=== PATIENT | male | born 1955 | race Caucasian/White ===

== ENCOUNTER 2024-07-03 10:00 | Inpatient (IN) ==
[2024-07-03] MEDS: ASPIRIN CHEW 324 MG PO STA (10:47)
--- NOTE | 2024-07-03 10:51 | Emergency Department Note ---
Impression & Plan Chest pain, exertional, Heart murmur, Elevated troponin I level ED Provider Note NAME: DONALD LANGSTON AGE: 69 SEX: M : 1955 ARRIVES VIA: Walk-In INFORMANT: Patient, ED PROVIDER(S): Ashish Olson DO CHIEF COMPLAINT: Chest pain HPI: The patient is a 69-year-old male who presented to the emergency department with his significant other for an evaluation of chest pain. The patient describes a tightness in his chest anteriorly. He also notices radiation of the pain to his right shoulder. He denies having any vomiting. He has had some shortness of breath. Pain is worsened with exertion and relieved with rest. The patient has not been seen by his family doctor for the symptoms. He has not had a stress test but he has a strong family history for early coronary artery disease. ROS: See above HPI for pertinent positives & negatives. A total of 10 systems reviewed and were otherwise negative. PAST MEDICAL HISTORY: See Below PAST SURGICAL HISTORY: See Below FAMILY HISTORY: See Below SOCIAL HISTORY: See Below HOME MEDICATIONS: See Below ALLERGIES: See Below VITALS: See Below PHYSICAL EXAMINATION: GENERAL: Patient is awake alert in no acute distress patient is resting comfortably and showing no signs of anxiety EYES: The conjunctivae are clear. The pupils are round and reactive. EARS, NOSE, MOUTH AND THROAT: The nose is without any evidence of any deformity. Mucous membranes are moist. Tongue is midline. NECK: The neck is nontender and supple. RESPIRATORY: Normal respiratory effort is noted there is no evidence of wheezing rhonchi or rales CARDIOVASCULAR: Regular rate and rhythm was noted to auscultation. Systolic murmur was suggested. GASTROINTESTINAL: The abdomen is soft. Abdomen is nontender. MUSCULOSKELETAL/EXTREMITIES: There is no evidence of gross deformity full range of motion is noted in the hips and shoulders. SKIN: There is no obvious evidence of any rash. Trace pedal edema was noted bilaterally. NEUROLOGIC: Patient is awake alert and oriented x3 MEDICAL DECISION MAKING: The patient is a 69-year-old male who presented to the emergency department for an evaluation of chest pain. The patient has a history of obesity but he also has a history of diabetes as well as hypertension. The patient's chest pain was exertional in nature. EKG showed no obvious ischemic changes but cardiac biomarker was elevated. Given the patient's risk factors as well as his exertional chest pain and his elevated troponin I do for the patient would be a better candidate for inpatient management. I discussed the patient's laboratory and radiographic studies with him. He was treated with aspirin in the emergency department. I discussed his condition with the on-call [facility] hospitalist. They have agreed to evaluate the patient in the emergency department for further management and disposition. Triage Nursing notes reviewed. Prior medical records reviewed Vital Signs: reviewed and remarkable for elevated blood pressure. Differential diagnosis: Cardiac ischemia, aortic dissection, pulmonary embolism, pneumothorax, pneumonia, pericarditis, myocarditis, esophageal rupture, GERD, cholecystitis, pancreatitis, musculoskeletal, as well as other pathologies. ER treatment provided: See below Diagnostics interpreted by me: ECG: EKG was obtained in the emergency department. My interpretation is normal sinus rhythm at 60 bpm. There is no ectopy. Nonspecific ST segment flattening was noted. No previous tracing was available. Cardiac Monitoring: An order was placed for continuous cardiac monitoring. The monitor shows a rate of 58 bpm with sinus bradycardia. Laboratory studies: As stated above and show below. Imaging studies: See below. Radiographic imaging was reviewed by myself Consultation(s): I discussed this case with Dr. Mccall who is on-call for the [facility] hospitalist group. Past Med/Surg History Problem List (Updated 07/03/24 @ 12:56 by Ashish Olson DO) Elevated troponin I level (Acute) Fatigue Chest pain, rule out acute myocardial infarction Heart murmur (Acute) Chest pain, exertional (Acute) Medical History (Updated 07/03/24 @ 12:56 by Ashish Olson DO) BPH (benign prostatic hyperplasia) Hypertension Diabetes Social History Smoking Status: Former smoker Preferred Language: Latvian Feels Safe at Home: Yes Allergies Allergies Allergy/AdvReac Type Severity Reaction Status Date / Time Penicillins Allergy Unknown Unknown Unverified 07/03/24 11:16 Sulfa (Sulfonamide Allergy Unknown Unknown Unverified 07/03/24 11:16 Antibiotics) [id number]-LTP-CgT Reductase AdvReac Verified 07/03/24 12:40 Inhibitor Home Meds Home Medications Medication Instructions Recorded Confirmed atenolol 100 mg tablet 100 mg PO QAM 07/03/24 07/03/24 clotrimazole-betamethasone 1 1 applic topical BID 07/03/24 07/03/24 %-0.05 % topical cream furosemide 20 mg tablet 20 mg PO QAM 07/03/24 07/03/24 hydrochlorothiazide 25 mg tablet 25 mg PO QAM 07/03/24 07/03/24 irbesartan 150 mg tablet 150 mg PO QAM 07/03/24 07/03/24 pioglitazone 45 mg tablet 45 mg PO QAM 07/03/24 07/03/24 tamsulosin 0.4 mg capsule 0.4 mg PO QAM 07/03/24 07/03/24 Results & Data (ED) Vital Signs Vital Signs - 24 hr 07/03/24 10:06 07/03/24 10:27 07/03/24 10:46 Temperature 36 C L Temperature Source Temporal Artery Scan Pulse Rate 63 59 L Pulse Rate [Apical] Respiratory Rate 18 Respiratory Effort / Characteristics Non-Labored Spontaneous Respiratory Depth Normal Respiratory Pattern Regular Blood Pressure 137/57 L Blood Pressure [Right Arm] Blood Pressure Mean 83 Blood Pressure Mean [Right Arm] Pulse Oximetry 96 98 Oxygen Delivery Method Room Air Room Air Sepsis Recent Fever Within 48 Hours No Sepsis New/Unexplained Change in Mental Status No Sepsis Action Taken by Nursing No Action Required 07/03/24 10:46 07/03/24 12:05 Temperature Temperature Source Pulse Rate Pulse Rate [Apical] 58 L Respiratory Rate 24 Respiratory Effort / Characteristics Respiratory Depth Respiratory Pattern Blood Pressure Blood Pressure [Right Arm] 166/77 H Blood Pressure Mean Blood Pressure Mean [Right Arm] 106 Pulse Oximetry 98 97 Oxygen Delivery Method Room Air Room Air Sepsis Recent Fever Within 48 Hours Sepsis New/Unexplained Change in Mental Status Sepsis Action Taken by [facility] Medications Current Medication List: was personally reviewed by me Laboratory Data Attestation: I reviewed the patient's lab results. 07/03/24 10:17 07/03/24 10:17 Lab Results 07/03/24 Range/Units 10:17 WBC 6.82 (4.8-10.8) K/ul RBC 4.47 L (4.70-6.10) M/uL Hgb 13.2 L (14.0-18.0) g/dl Hct 40.1 L (42.0-52.0) % MCV 89.7 (80.0-100.0) fL MCH 29.5 (25.0-34.0) pg MCHC 32.9 (32.0-36.0) g/dL RDW Std Deviation 46.2 (36.4-46.3) fL RDW Coeff of Malik 14.0 (11.5-14.5) % Plt Count 316 (130-400) K/uL MPV 8.7 L (9.4-12.4) fL Immature Gran % (Auto) 0.4 % Neut % (Auto) 61.3 % Lymph % (Auto) 30.2 % [place] % (Auto) 6.0 % Eos % (Auto) 1.5 % Baso % (Auto) 0.6 % Neut # (Auto) 4.18 (1.40-6.50) K/uL Lymph # (Auto) 2.06 (1.20-3.40) K/uL [place] # (Auto) 0.41 (0.11-0.59) K/uL Eos # (Auto) 0.10 (0.00-0.50) K/uL Baso # (Auto) 0.04 (0.00-0.20) K/uL Immature Gran # (Auto) 0.03 (0.01-0.20) K/uL Sodium 138 (136-145) mmol/L Potassium 4.3 (3.5-5.1) mmol/L Chloride 101 (98-107) mmol/L Carbon Dioxide 31 (21-32) mmol/L Anion Gap 6 (3-11) BUN 33 H (6-23) mg/dl Creatinine 1.22 (0.6-1.4) mg/dl Est Cr Clr Drug Dosing 91.5 ml/min eGFR 64.98 BUN/Creatinine Ratio 27.0 H (10-20) Glucose 160 H (70-99(Fasting)) mg/dl Calcium 9.3 (8.6-10.3) mg/dl Total Bilirubin 0.7 (0.2-1.0) mg/dl AST 13 (13-39) U/L ALT 10 (7-52) U/L Alkaline Phosphatase 52 (34-104) U/L Troponin I High Sens 34.3 H (0-20) pg/ml Total Protein 7.2 (6.0-8.3) gm/dl Albumin 3.9 (3.4-5.0) gm/dl Globulin 3.3 (2.5-4.0) gm/dl Albumin/Globulin Ratio 1.2 (0.9-2) Lipase 40 (11-82) U/L Administered Medications Discontinued Medications Aspirin (Aspirin Chew 324 Mg) 324 mg PO NOW STA Stop: 07/03/24 10:29 Last Admin: 07/03/24 10:47 Dose: 324 mg Documented By: MICHELLE Imaging Data Attestation: I personally reviewed and interpreted this imaging study as follows: My Impression: 1 view chest x-ray was obtained in the emergency department. My interpretation is no free air or definite infiltrate, final report below. Radiologist's Impression: Chest X-Ray 07/03/24 10:28 XR chest 1V portable HISTORY: 69 years-old Male Chest pain, nonspecific COMPARISON: None TECHNIQUE: AP view of the chest FINDINGS: Cardiac silhouette is enlarged. No pneumothorax, pleural effusion, airspace consolidation or overt pulmonary edema. Bones appear grossly intact. IMPRESSION: No acute process. ACT 112: Negative or not required by law. The above report was generated using voice recognition software. It may contain grammatical, syntax or spelling errors. Electronically signed by: Jose Elias Wu M.D. 07/03/2024 11:41 AM Discharge Plan Visit Data Chief Complaint: Chest Pain Stated Complaint: CHEST PAIN ED Provider: Ashish Olson Discharge Problem: Chest pain, exertional, Heart murmur, Elevated troponin I level Patient Disposition: Being Evaluated by Hospitalist Forms Stand Alone Forms: My [facility] Prescriptions Prescriptions: No Action atenolol 100 mg tablet 100 mg PO QAM pioglitazone 45 mg tablet 45 mg PO QAM tamsulosin 0.4 mg capsule 0.4 mg PO QAM clotrimazole-betamethasone 1-0.05 % cream 1 applic TOPICAL BID hydrochlorothiazide 25 mg tablet 25 mg PO QAM furosemide 20 mg tablet 20 mg PO QAM irbesartan 150 mg tablet 150 mg PO QAM Referrals Referrals: Zach Pollock MD [Primary Care Provider] -
[2024-07-03 11:02] LABS: Basophils # (auto) 0.04 K/uL (0.00-0.20); Basophils % (auto) 0.6 %; Eosinophils % (auto) 1.5 %; Hematocrit (blood only) 40.1 % (42.0-52.0); Hemoglobin 13.2 g/dl (14.0-18.0); Immature Granulocytes # (auto) 0.03 K/uL (0.01-0.20); Immature Granulocytes % (auto) 0.4 %; Lymphocytes # (auto) 2.06 K/uL (1.20-3.40); Lymphocytes % (auto) 30.2 %; Mean Corpuscular Hemoglobin 29.5 pg (25.0-34.0); Mean Corpuscular Hgb Conc 32.9 g/dL (32.0-36.0); Mean Corpuscular Volume 89.7 fL (80.0-100.0); Mean Platelet Volume 8.7 fL (9.4-12.4); Monocytes # (auto) 0.41 K/uL (0.11-0.59); Neutrophils # (auto) 4.18 K/uL (1.40-6.50); Neutrophils % (auto) 61.3 %; Platelet Count 316 K/uL (130-400); RDW Standard Deviation 46.2 fL (36.4-46.3); Red Blood Count 4.47 M/uL (4.70-6.10); White Blood Count 6.82 K/ul (4.8-10.8)
[2024-07-03 11:16] LABS: Albumin Globulin Ratio 1.2 (0.9-2); Albumin Level 3.9 gm/dl (3.4-5.0); Bilirubin,Total 0.7 mg/dl (0.2-1.0); Calcium 9.3 mg/dl (8.6-10.3); Creatinine Clr Calc Pharmacy 91.5 ml/min; Globulin 3.3 gm/dl (2.5-4.0); Potassium 4.3 mmol/L (3.5-5.1); Total Protein 7.2 gm/dl (6.0-8.3)
[2024-07-03 11:21] LABS: Troponin I High Sensitivity 34.3 pg/ml (0-20)
--- NOTE | 2024-07-03 11:42 | XRay Report ---
XR chest 1V portable HISTORY: 69 years-old Male Chest pain, nonspecific COMPARISON: None TECHNIQUE: AP view of the chest FINDINGS: Cardiac silhouette is enlarged. No pneumothorax, pleural effusion, airspace consolidation or overt pu lmonary edema. Bones appear grossly intact. IMPRESSION: No acute process. ACT 112: Negative or not required by law. The above report was generated using voice recognition software. It may contain grammatical, syntax o r spelling errors. Electronically signed by: Jose Elias Wu M.D. 07/03/2024 11:41 AM
--- NOTE | 2024-07-03 12:03 | History & Physical Report ---
Date of Service July 03, 2024 Assessment & Plan (1) Chest pain, rule out acute myocardial infarction: Plan: Serial troponins (if significantly up trending will add IV heparin), TTE ASA 324mg PO given in ER, continue 81mg PO daily Intolerant to statins (tried both lipid and water soluble) -> lipid panel with AM labs, consider Repatha as outpatient HbA1C with AM labs Exertional with high risk factors and family history, will consult cardiology to consider taking to cardiac laborer wrecking and salvaging vs stress testing (2) Heart murmur: Plan: TTE (3) Fatigue: Plan: Consider sleep apnea testing as outpatient TSH with prior labs (4) Hypertension: Plan: Continue atenolol, furosemide, HCTZ, irbesartan Consider switching atenolol for carvedilol is CAD confirmed (5) Diabetes: Plan: HbA1C with AM labs Hold pioglitazone Consider GLP-1 on discharge SGLT-2 inhibitor not a good option given recurrent UTIs (6) BPH (benign prostatic hyperplasia): Plan: Continue tamsulosin Plan VTE Prophylaxis - deferred pending serial troponins Diet - heart healthy, T2DM, Low Na Disposition - observation to PCU Admission and Anticipated Discharge Date Admission Date: July 03, 2024 History of Present Illness Chief Complaint: Chest pain Primary Care Provider: Zach Pollock MD Georges Pollock is a 69 year old male who presents to the ER with chest pain. He reports 2 weeks of exertional burning sensation over his chest. He has been taking tums which has helped a stomach sensation but not this exertion pain. It has been coming on more frequently and with increased duration. Yesterday he reports it lasted for a couple of hours but was only intense on exertion during that time. Possible worse on eating. No radiation or acid taste in his mouth. Associated shortness of breath, no diaphoresis or nausea. No palpitations, claudication, presyncope or syncope. No orthopnea or paroxysmal nocturnal dyspnea although he also does not sleep flat due to chronic back problems. Prior to this he has noticed lack of energy over the last 1.5 years. Leg swelling is chronic but was worse 6 months ago and improved with the addition of furosemide. He has noticed some left shoulder pain but this is not associated with the burning chest pain. He has been treated for bursitis and when cold it exacerbates this pain. It is worse on movement (shoulder extension). He recently had a sore throat and stiff neck on the left side 2 days ago but that has now resolved. He has not previously seen a picture hanger but has an appointment to see Dr Nicholas in the Spring due to extensive risk factors for coronary artery disease. He has hypertension on 4 medications, diabetes on pioglitazone (last HbA1C 7.2 by report), untreated hyperlipemia (intolerant to statins with leg pain), family history with heart attacks with his brother, mother, father and uncles (all over the age of 5050 years old), obesity (BMI 52). He quit smoking in 1989 (15 pack- year history). No personal history of cardiovascular disease. While in the ER he denies any current chest burning sensation. Allergies Allergy/AdvReac Type Severity Reaction Status Date / Time Penicillins Allergy Unknown Unknown Unverified 07/03/24 11:16 Sulfa (Sulfonamide Allergy Unknown Unknown Unverified 07/03/24 11:16 Antibiotics) [id number]-YaK Reductase AdvReac Verified 07/03/24 12:40 Inhibitor Home Medications Medication Instructions Recorded Confirmed Type atenolol 100 mg tablet 100 mg PO QAM 07/03/24 07/03/24 History clotrimazole-betamethasone 1 1 applic topical BID 07/03/24 07/03/24 History %-0.05 % topical cream furosemide 20 mg tablet 20 mg PO QAM 07/03/24 07/03/24 History hydrochlorothiazide 25 mg tablet 25 mg PO QAM 07/03/24 07/03/24 History irbesartan 150 mg tablet 150 mg PO QAM 07/03/24 07/03/24 History pioglitazone 45 mg tablet 45 mg PO QAM 07/03/24 07/03/24 History tamsulosin 0.4 mg capsule 0.4 mg PO QAM 07/03/24 07/03/24 History Past Med/Surg History Problem List (Updated 07/03/24 @ 16:05 by rBannon Altman MD, PhD) Benign essential hypertension Atherogenic dyslipidemia Elevated troponin I level (Acute) Fatigue Chest pain, rule out acute myocardial infarction Heart murmur (Acute) Chest pain, exertional (Acute) Medical History BPH (benign prostatic hyperplasia) Hypertension Diabetes Social History Smoking Status: Former smoker Smoking End Date: 1989; Second Hand Exposure: No; Do You Dip or Chew Tobacco: No; Tobacco Cessation Education Requested by Patient: No Hx Alcohol Use: Yes Alcohol type: beer Hx Substance Use: No Preferred Language: Syriac Communication Ability: Effective Radiology Director Required: No Beliefs That Will Affect Care: None Current Living Situation: Spouse Other Information That Helps Us Care for You: No Feels Safe at Home: Yes Safety Concerns: Feels Safe At This Time Assistive Devices: Denture - Upper and Glasses Review of Systems Review of Systems: All systems reviewed & are unremarkable except as noted in HPI & below Physical Exam Constitutional: WD/WN, vitals as above + morbidly obese Eyes: + anicteric sclerae; normal pupil size Respiratory: normal respiratory effort, lungs clear to auscultation Cardiovascular: Rate/Rhythm: regular rate and regular rhythm Heart Sounds: + murmur (OMAIRA LUSB 2/6) Extremities: + pedal edema (2+ b/l equal to knees) Gastrointestinal (Abdomen): normal bowel sounds, soft, nontender, no hepatosplenomegaly Musculoskeletal: no cyanosis or clubbing, extremities motor strength 5/5 Skin: no rashes, warm and dry Neurologic: moves all extremities and awake; not confused Psychiatric: A+Ox3, euthymic affect Results & Data Results & Data Vital Signs (Past 12 Hours) Vital Signs Temp Pulse Resp BP Pulse Ox O2 Del Method 07/03/24 10:46 98 Room Air 07/03/24 10:46 98 Room Air 07/03/24 10:27 59 L 07/03/24 10:06 36 C L 63 18 137/57 L 96 Room Air Laboratory Results Abnormal lab results 07/03/24 Range/Units 10:17 RBC 4.47 L (4.70-6.10) M/uL Hgb 13.2 L (14.0-18.0) g/dl Hct 40.1 L (42.0-52.0) % MPV 8.7 L (9.4-12.4) fL BUN 33 H (6-23) mg/dl BUN/Creatinine Ratio 27.0 H (10-20) Glucose 160 H (70-99(Fasting)) mg/dl Troponin I High Sens 34.3 H (0-20) pg/ml Diagnostic Findings XR chest 1V portable HISTORY: 69 years-old Male Chest pain, nonspecific COMPARISON: None TECHNIQUE: AP view of the chest FINDINGS: Cardiac silhouette is enlarged. No pneumothorax, pleural effusion, airspace consolidation or overt pulmonary edema. Bones appear grossly intact. IMPRESSION: No acute process. Medications Administered ER Medications Given: Aspirin 324mg PO ECG Rate (beats per minute): 60 Rhythm: normal sinus Findings: no acute ischemic change Comparison ECG Date: no prior available Code Status & VTE Plan Code Status Full VTE Prophylaxis Plan VTE Prophylaxis will be ordered: No PG Care Time/CCT Total # of Minutes Spent Total Time Spent with Patient: Total time spent is greater than 50% in coordination of care (as documented) at patient's floor/unit and/or counseling patient: Coding Level of Care Code 22694 INT INP/OBS CARE 3/75MIN Diagnoses Chest pain, rule out acute myocardial infarction R07.9 Heart murmur R01.1 Fatigue R53.83 Hypertension I10 Diabetes E11.9 BPH (benign prostatic hyperplasia) N40.0
[2024-07-03] MEDS ORDERED: ACETAMINOPHEN 325 MG TAB PO PRN (13:39)
[2024-07-03] MEDS ORDERED: GLUCOSE 10 TAB/TUBE PO PRN (13:39)
[2024-07-03] MEDS ORDERED: GLUCAGON FOR INJ 1 MG VIAL SQ PRN (13:39)
[2024-07-03] MEDS ORDERED: CARBOHYDRATES FOR HYPOGLYCEMIA PO PRN (13:39)
[2024-07-03] MEDS ORDERED: GLUCOSE 40% GEL 15 GM TUBE PO PRN (13:39)
[2024-07-03] MEDS ORDERED: DEXTROSE 50% 50 ML SYRINGE IV PRN (13:39)
[2024-07-03 13:51] LABS: Magnesium 1.6 mg/dl (1.7-2.4)
[2024-07-03 14:00] LABS: Troponin I High Sensitivity 84.6 pg/ml (0-20)
[2024-07-03 14:04] LABS: Thyroid Stimulating Hormone 1.179 uIu/ml (0.300-4.500)
[2024-07-03 14:07] LABS: INR 1.1 (0.9-1.1); Partial Thromboplastin Time 27 Seconds (21-31); Prothrombin Time 11.4 Seconds (9.0-12.0)
[2024-07-03 14:36] LABS: Appearance Urine Clear (Clear); Bilirubin Urine Negative (Negative); Blood Urine Negative (Negative); Color Urine Yellow; Glucose Urine UA Negative (Negative); Ketones Urine Negative (Negative); Leukocyte Esterase Urine Negative (Negative); Nitrite Urine Negative (Negative); Protein Urine Negative (Negative); Specific Gravity Urine 1.011 (1.000-1.030); Urobilinogen Urine Negative (Negative)
[2024-07-03] MEDS: Heparin IV Adult Wt-Based Low-Dose w/ INITIAL Bolus Protocol IV STA (15:55)
--- NOTE | 2024-07-03 15:55 | Cardiology Consultation ---
Date of Consultation July 03, 2024 Assessment & Plan (1) Elevated troponin I level: Mild non-ST elevation [place]. Not sure where his troponins will go from here. May continue to rise or may be limited. He does have risk factors for coronary disease. I am awaiting the echocardiogram. This may be an acute coronary syndrome or it may represent demand ischemia with underlying coronary disease. His blood pressure is elevated which could also cause elevated troponin. I do not see a contraindication for him to undergo definitive evaluation by coronary angiography. Therefore, tentatively planning to take him to the [facility] tomorrow for cardiac cath plus or minus PCI as indicated. Agree with aspirin and he should continue on heparin drip. We will not start Plavix or Brilinta as he is diabetic and coronary artery bypass grafting may be indicated (2) Fatigue: This is been ongoing for a few years. Agree with outpatient sleep study to evaluate for obstructive sleep apnea given his clear risk. I am awaiting the echocardiogram which may also give us information with regard to his LVEF. Further recommendations pending results. (3) Heart murmur: Awaiting echo. (4) Atherogenic dyslipidemia: Patient is considered high risk (diabetes plus or minus CAD). High intensity statin therapy is recommended. However, he is intolerant to at least 3 previously attempted statins. He would benefit from PCSK9 inhibition. We would likely have to alter his current diabetic regimen. (5) Benign essential hypertension: Blood pressure is inadequately controlled at this time. I suspect he did not take his medications today. His first scheduled medications are for tomorrow morning. At the very least I will have him receive IV hydralazine as needed for systolic blood pressure greater than 150 mmHg. I agree with atenolol 100 mg daily, HCTZ 25 mg daily, and the substitution of losartan for the irbesartan. The should be taken tomorrow before his cath. History of Present Illness Reason for Consultation: Chest pain, elevated troponin Attending Physician: Zev Mccall MD History of Present Illness 69-year-old morbidly obese diabetic male presented with burning substernal chest discomfort. His EKG was unremarkable. His initial cardiac troponin was minimally elevated but his second cardiac troponin was elevated to 84.6. I was asked to see him for ACS. Patient reports that he has had reproducible burning chest discomfort on exertion which typically resolves with rest. He has a strong family history of cardiac disease including his grandfather, father and brother who each had coronary artery disease. In fact, he had recently requested cardiology referral as an outpatient because he is worried about his own cardiac risk. He tells me he smoked for about 15 years when he was younger up to a pack a day but discontinued in 1989. He tells me he has been a diabetic for a long time and his sugars have recently been fairly well-controlled. Hemoglobin A1c 7.2. He is also had high blood pressure for a long time. When he initially presented his systolic blood pressure was 137 mmHg but it has continued to increase during his hospitalization. Most recent systolic blood pressure recorded at 171 mmHg. Patient has never had any cardiac problems in the past. He has never had a cath, stents, or bypass. He tells me that his chest discomfort episode yesterday became quite intense and lasted for several hours before eventually resolving. He also has some right shoulder pain but he believes this is an orthopedic issue. He denies syncope but does have significant dyspnea on exertion longstanding. He denies orthopnea, PND, racing heartbeat, palpitations, and admits to only mild edema worse at the end of the day. Was previously more significant but improved with the use of Lasix. Denies any recent fevers or chills, nausea, vomiting, diarrhea, hematemesis or hematochezia. He voices no other complaints or concerns at this time. Allergies Allergy/AdvReac Type Severity Reaction Status Date / Time Penicillins Allergy Unknown Unknown Unverified 07/03/24 11:16 Sulfa (Sulfonamide Allergy Unknown Unknown Unverified 07/03/24 11:16 Antibiotics) [id number]-GDN-[id number] Reductase AdvReac Verified 07/03/24 12:40 Inhibitor Home Medications Medication Instructions Recorded Confirmed Type atenolol 100 mg tablet 100 mg PO QAM 07/03/24 07/03/24 History clotrimazole-betamethasone 1 1 applic topical BID 07/03/24 07/03/24 History %-0.05 % topical cream furosemide 20 mg tablet 20 mg PO QAM 07/03/24 07/03/24 History hydrochlorothiazide 25 mg tablet 25 mg PO QAM 07/03/24 07/03/24 History irbesartan 150 mg tablet 150 mg PO QAM 07/03/24 07/03/24 History pioglitazone 45 mg tablet 45 mg PO QAM 07/03/24 07/03/24 History tamsulosin 0.4 mg capsule 0.4 mg PO QAM 07/03/24 07/03/24 History Patient History Medical History BPH (benign prostatic hyperplasia) Hypertension Diabetes Social History Smoking Status: Former smoker Preferred Language: Romanian Feels Safe at Home: Yes Review of Systems Review of Systems: Negative except as per HPI Physical Exam Constitutional: WD/WN, vitals as above (Morbidly obese) Eyes: Extraocular muscles intact, sclera are anicteric ENMT: Oral mucosa is pink, moist, and intact Neck: Thick. No JVD appreciated Respiratory: Clear to auscultation bilaterally. No wheezing, rhonchi, or rales Cardiovascular: Regular rate and rhythm. S4 gallop. Systolic murmur. Trace bilateral lower extremity edema left slightly worse than right. Neurologic: Cognition is intact. Speech is fluent. No focal deficits. Psychiatric: A+Ox3, euthymic affect (Anxious) Results & Data Vital Signs (Past 12 Hours) Vital Signs Temp Pulse Pulse Resp BP BP Pulse Ox 07/03/24 13:26 55 L 25 H 171/59 H 98 07/03/24 12:05 58 L 24 166/77 H 97 07/03/24 10:46 98 07/03/24 10:46 98 07/03/24 10:27 59 L 07/03/24 10:06 36 C L 63 18 137/57 L 96 O2 Del Method 07/03/24 13:26 Room Air 07/03/24 12:05 Room Air 07/03/24 10:46 Room Air 07/03/24 10:46 Room Air 07/03/24 10:27 07/03/24 10:06 Room Air PG Care Time/CCT Total # of Minutes Spent Total Time Spent with Patient: Total time spent is greater than 50% in coordination of care (as documented) at patient's floor/unit and/or counseling patient: Coding Level of Care Code 81324 INT INP/OBS CARE 2/55MIN Diagnoses Elevated troponin I level R79.89 Fatigue R53.83 Heart murmur R01.1 Atherogenic dyslipidemia E78.5 Benign essential hypertension I10 Time Spent (min) 50
[2024-07-03] MEDS: HEPARIN SOD (PORCINE) 1000 UNIT/ML IV ONE (15:56)
[2024-07-03] MEDS: HEPARIN SODIUM/DEXTROSE 25,000 UNITS/500 ML BAG IV SCH (15:56)
[2024-07-03] MEDS: MAGNESIUM SULFATE / D5W 1 GM/100 ML BAG IV SCH (15:56)
[2024-07-03] MEDS ORDERED: hydrALAZINE HCL 20 MG/ML VIAL IV PRN (16:15)
--- NOTE | 2024-07-03 16:17 | Electrocardiogram Report ---
Test Reason : Blood Pressure : */* mmHG Vent. Rate : 60 BPM Atrial Rate : 60 BPM P-R Int : 186 ms QRS Dur : 92 ms QT Int : 394 ms P-R-T Axes : 2 32 27 degrees QTcB Int : 394 ms Normal sinus rhythm Normal ECG No previous ECGs available Confirmed by Mirza Gutierrez ([id number]) on 07/03/2024 4:16:53 PM Referred By: REFERRED SELF Confirmed By: Mirza Gutierrez
--- NOTE | 2024-07-03 16:36 | XCELERA ---
[id number] \\[id number]
[2024-07-03 17:14] LABS: D Dimer 760 ug/L FEU (0-500)
[2024-07-03] MEDS: INSULIN ASPART PER UNIT CHARGE SC SCH (17:28)
[2024-07-03] MEDS: hydrALAZINE HCL 20 MG/ML VIAL IV STA (17:47)
[2024-07-03] MEDS ORDERED: OXYMETAZOLINE 0.05% 30 ML BTL PRN (19:40)
[2024-07-03] MEDS ORDERED: CLOTRIMAZOLE/BETAMETHASONE CR 15 GM TUBE EXT SCH (21:00)
[2024-07-03 23:16] LABS: ANTI-Xa, UFH(UnfractionatedHep 0.33 IU/ml (0.3-0.7)
--- NOTE | 2024-07-04 05:22 | Ultrasound Report ---
EXAM: US venous doppler LE BI CLINICAL HISTORY: HISTORY: No previous. leg swelling, elevated d-dimer. TECH NOTES FOR RADIOLOGIST: No obvious DVT B/L LE. Exam limited by increased body habitus, BMI 52, and edema in bilat calves. TECHNIQUE: Bilateral lower extremity venous Doppler with reflux is performed. One or more of the following were performed- spectral analysis, resistive index, waveform analysis, and pulsed Doppler. COMPARISON: None. FINDINGS: Exam limited by increased body habitus. The examined deep venous system veins include the common femoral vein, femoral vein, popliteal vein, peroneal vein, anterior tibialis vein, and posterior tibialis vein. The examined superficial venous system includes the proximal great saphenous vein at the SFJ. All evaluated veins compress fully with applied transducer pressure. Additional Findings: Bilateral calves subcutaneous edema is noted. IMPRESSION: 1. Exam limited by increased body habitus. 2. No evidence of superficial and deep venous thrombosis 3. Bilateral calves subcutaneous edema is noted. DISCLAIMER:DVT could be missed early in the disease when clot burden is minimal. For patients with moderate and high pretest probability of DVT and negative ultrasound, the [employer] clinical guidelines recommend testing with a D-dimer assay or repeat ultrasound in 5-7 days. If symptoms worsen, the Society of radiologists in ultrasound recommends repeating ultrasound even earlier. Electronically signed by Tyler Briceno 07-04-2024 05:22 AM
[2024-07-04 07:08] LABS: Basophils # (auto) 0.04 K/uL (0.00-0.20); Basophils % (auto) 0.6 %; Eosinophils # (auto) 0.08 K/uL (0.00-0.50); Eosinophils % (auto) 1.2 %; Hematocrit (blood only) 38.9 % (42.0-52.0); Immature Granulocytes # (auto) 0.02 K/uL (0.01-0.20); Immature Granulocytes % (auto) 0.3 %; Lymphocytes # (auto) 1.76 K/uL (1.20-3.40); Lymphocytes % (auto) 27.3 %; Mean Corpuscular Hemoglobin 29.7 pg (25.0-34.0); Mean Corpuscular Hgb Conc 33.4 g/dL (32.0-36.0); Mean Corpuscular Volume 88.8 fL (80.0-100.0); Mean Platelet Volume 8.5 fL (9.4-12.4); Monocytes # (auto) 0.42 K/uL (0.11-0.59); Monocytes % (auto) 6.5 %; Neutrophils # (auto) 4.12 K/uL (1.40-6.50); Neutrophils % (auto) 64.1 %; Platelet Count 284 K/uL (130-400); RDW Coefficient of Variation 14.2 % (11.5-14.5); RDW Standard Deviation 45.9 fL (36.4-46.3); Red Blood Count 4.38 M/uL (4.70-6.10); White Blood Count 6.44 K/ul (4.8-10.8)
[2024-07-04 07:27] LABS: BUN Creatinine Ratio 27.5 (10-20); Calcium 9.3 mg/dl (8.6-10.3); Chol HDL Ratio 4.6 (0-5); Creatinine Clr Calc Pharmacy 92.7 ml/min
[2024-07-04 07:39] LABS: Estimated Average Glucose 151 mg/dl; Hemoglobin A1C 6.9 % (4.5-5.6)
[2024-07-04 07:42] LABS: ANTI-Xa, UFH(UnfractionatedHep 0.25 IU/ml (0.3-0.7)
[2024-07-04] MEDS ORDERED: PHARMACY GLYCEMIC MGMT CONSULT PRN (08:54)
[2024-07-04] MEDS ORDERED: ATENOLOL 50 MG TABLET PO SCH (09:00)
[2024-07-04] MEDS ORDERED: hydroCHLOROthiazide 25 MG TAB PO SCH (09:00)
[2024-07-04] MEDS ORDERED: FUROSEMIDE 20 MG TAB PO SCH (09:00)
[2024-07-04] MEDS: carvediloL 6.25 MG TAB PO ONE (10:33)
[2024-07-04] MEDS: BUMETANIDE 1 MG TAB PO SCH (10:33)
[2024-07-04] MEDS: ASPIRIN 81 MG ECTAB PO SCH (10:34)
[2024-07-04] MEDS: LOSARTAN POTASSIUM 50 MG TAB PO SCH (10:35)
[2024-07-04] MEDS: TAMSULOSIN HCL 0.4 MG CAP PO SCH (10:35)
--- NOTE | 2024-07-04 10:39 | Hospitalist Progress Note ---
Date of Service July 04, 2024 Assessment & Plan (1) NSTEMI (non-ST elevated myocardial infarction): (2) Hyperlipidemia: (3) Hypertension: (4) Type 2 diabetes mellitus: (5) Morbid obesity with BMI of 50.0-59.9, adult: (6) B12 deficiency: Plan 69-year-old male with past medical history of hypertension, morbid obesity, type 2 diabetes mellitus who presents to the ED with burning substernal chest discomfort #NSTEMI #Essential hypertension #Hyperlipidemia #Suspected ischemic cardiomyopathy, EF of 45% Patient was seen by cardiology He was scheduled to have cardiac cath this morning which has been postponed till tomorrow Continue heparin infusion per cardiology Continue aspirin Total cholesterol is 228 HDL is 50 LDL is 158 Patient is intolerant to statin, as per cardiology he would benefit from PCSK9 inhibition. 2D echo reviewed: Difficult study due to body habitus, shows moderate concentric LVH with EF of 45% Switch atenolol to carvedilol 12.5 mg p.o. twice daily with hold parameters Continue losartan 50 mg p.o. daily . Furosemide and hydrochlorothiazide and switch to Bumex 1 mg p.o. daily Hydralazine IV as needed for hypertension per cardiology I/O monitoring Daily weights Await cardiac cath with cardiology #Type 2 diabetes mellitus A1c 6.9 Pharmacy consult for glycemic control I do not believe pioglitazone is a good medicine of choice for this patient and he would benefit from endocrinology referral outpatient for diabetes management I believe this patient would also benefit from GLP-1 agonist or SGLT2 antagonist #Morbid obesity BMI is 52.1 Lifestyle counseling regarding diet, exercise and weight loss provided Outpatient follow with PCP and endocrinology #Hypomagnesemia Magnesium replacement Monitor levels #Elevated D-dimer D-dimer 716 Bilateral lower extremity Doppler showed no evidence of DVT Check CTA of the chest to assess for PE Patient is already on heparin infusion CODE STATUS: Full code DVT prophylaxis: Patient on heparin infusion Care plan discussed with patient, nursing staff and updated at bedside Admission and Anticipated Discharge Date Admission Date: July 03, 2024 Subjective Patient seen and examined H&P reviewed Labs reviewed Telemetry reviewed Radiology reviewed is at bedside Patient currently denies any chest pain, shortness of breath, nausea, vomiting, diarrhea, abdominal pain, dizziness, lightheadedness. Patient has been experiencing lack of energy for the past few months with decreased motivation to ambulate and has consequently gained weight. Physical Exam Physical Exam: General: No acute distress Psych: Awake and alert, oriented x 3 HEENT: Anicteric sclera, moist oral mucosa CVS: Regular rate and rhythm, systolic murmur audible Lungs: Bilateral air entry, no wheezing noted Abdomen: Soft, nontender, obese abdomen no rebound, no guarding Ext: 1+ pitting edema noted, no calf tenderness Neuro: No focal motor deficits noted Results & Data Results & Data Vital Signs (Past 12 Hours) Vital Signs Temp Pulse Pulse Resp BP BP Pulse Ox 07/04/24 07:53 36.8 C 58 L 18 155/82 H 96 07/04/24 07:37 36.3 C L 67 18 152/73 H 97 07/04/24 07:30 07/04/24 03:54 36.4 C L 60 16 131/71 96 07/03/24 23:45 07/03/24 23:44 52 L 07/03/24 22:46 36.6 C 58 L 16 128/71 98 O2 Del Method 07/04/24 07:53 Room Air 07/04/24 07:37 Room Air 07/04/24 07:30 Room Air 07/04/24 03:54 Room Air 07/03/24 23:45 Room Air 07/03/24 23:44 07/03/24 22:46 Room Air Laboratory Results Laboratory Results - last 24 hr 07/03/24 07/03/24 07/03/24 10:17 13:01 13:44 WBC 6.82 RBC 4.47 L Hgb 13.2 L Hct 40.1 L MCV 89.7 MCH 29.5 MCHC 32.9 RDW Std Deviation 46.2 RDW Coeff of Malik 14.0 Plt Count 316 MPV 8.7 L Immature Gran % (Auto) 0.4 Neut % (Auto) 61.3 Lymph % (Auto) 30.2 [place] % (Auto) 6.0 Eos % (Auto) 1.5 Baso % (Auto) 0.6 Neut # (Auto) 4.18 Lymph # (Auto) 2.06 [place] # (Auto) 0.41 Eos # (Auto) 0.10 Baso # (Auto) 0.04 Immature Gran # (Auto) 0.03 PT 11.4 INR 1.1 APTT 27 PTT Ratio 1.0 D-Dimer Heparin Anti-Xa, Unfract Sodium 138 Potassium 4.3 Chloride 101 Carbon Dioxide 31 Anion Gap 6 BUN 33 H Creatinine 1.22 Est Cr Clr Drug Dosing 91.5 eGFR 64.98 BUN/Creatinine Ratio 27.0 H Glucose 160 H POC Glucose 128 H Estimat Average Glucose Hemoglobin A1c Calcium 9.3 Magnesium 1.6 L Total Bilirubin 0.7 AST 13 ALT 10 Alkaline Phosphatase 52 Troponin I High Sens 34.3 H 84.6 H* D B-Natriuretic Peptide 111 H Total Protein 7.2 Albumin 3.9 Globulin 3.3 Albumin/Globulin Ratio 1.2 Triglycerides Cholesterol LDL Cholesterol, Calc VLDL Cholesterol, Calc HDL Cholesterol Cholesterol/HDL Ratio Lipase 40 Vitamin B12 TSH 1.179 Urine Color Urine Appearance Urine pH Ur Specific Mclaughlin Urine Protein Urine Glucose (UA) Urine Ketones Urine Blood Urine Nitrite Urine Bilirubin Urine Urobilinogen Ur Leukocyte Esterase Hepatitis C Antibody 07/03/24 07/03/24 07/03/24 14:12 16:21 17:05 WBC RBC Hgb Hct MCV MCH MCHC RDW Std Deviation RDW Coeff of Malik Plt Count MPV Immature Gran % (Auto) Neut % (Auto) Lymph % (Auto) [place] % (Auto) Eos % (Auto) Baso % (Auto) Neut # (Auto) Lymph # (Auto) [place] # (Auto) Eos # (Auto) Baso # (Auto) Immature Gran # (Auto) PT INR APTT PTT Ratio D-Dimer 760 H* Heparin Anti-Xa, Unfract Sodium Potassium Chloride Carbon Dioxide Anion Gap BUN Creatinine Est Cr Clr Drug Dosing eGFR BUN/Creatinine Ratio Glucose POC Glucose 136 H Estimat Average Glucose Hemoglobin A1c Calcium Magnesium Total Bilirubin AST ALT Alkaline Phosphatase Troponin I High Sens B-Natriuretic Peptide Total Protein Albumin Globulin Albumin/Globulin Ratio Triglycerides Cholesterol LDL Cholesterol, Calc VLDL Cholesterol, Calc HDL Cholesterol Cholesterol/HDL Ratio Lipase Vitamin B12 TSH Urine Color Yellow Urine Appearance Clear Urine pH 5.0 Ur Specific Mclaughlin 1.011 Urine Protein Negative Urine Glucose (UA) Negative Urine Ketones Negative Urine Blood Negative Urine Nitrite Negative Urine Bilirubin Negative Urine Urobilinogen Negative Ur Leukocyte Esterase Negative Hepatitis C Antibody 07/03/24 07/03/24 07/04/24 19:57 23:00 06:45 WBC 6.44 RBC 4.38 L Hgb 13.0 L Hct 38.9 L MCV 88.8 MCH 29.7 MCHC 33.4 RDW Std Deviation 45.9 RDW Coeff of Malik 14.2 Plt Count 284 MPV 8.5 L Immature Gran % (Auto) 0.3 Neut % (Auto) 64.1 Lymph % (Auto) 27.3 [place] % (Auto) 6.5 Eos % (Auto) 1.2 Baso % (Auto) 0.6 Neut # (Auto) 4.12 Lymph # (Auto) 1.76 [place] # (Auto) 0.42 Eos # (Auto) 0.08 Baso # (Auto) 0.04 Immature Gran # (Auto) 0.02 PT INR APTT PTT Ratio D-Dimer Heparin Anti-Xa, Unfract 0.33 0.25 L Sodium 137 Potassium 4.0 Chloride 101 Carbon Dioxide 28 Anion Gap 8 BUN 33 H Creatinine 1.20 Est Cr Clr Drug Dosing 92.7 eGFR 66.28 BUN/Creatinine Ratio 27.5 H Glucose 141 H POC Glucose 176 H Estimat Average Glucose 151 Hemoglobin A1c 6.9 H Calcium 9.3 Magnesium 2.0 Total Bilirubin AST ALT Alkaline Phosphatase Troponin I High Sens 457.3 H* D 289.1 H* D B-Natriuretic Peptide Total Protein Albumin Globulin Albumin/Globulin Ratio Triglycerides 98 Cholesterol 228 H LDL Cholesterol, Calc 158 VLDL Cholesterol, Calc 20 HDL Cholesterol 50 Cholesterol/HDL Ratio 4.6 Lipase Vitamin B12 151 L TSH Urine Color Urine Appearance Urine pH Ur Specific Mcl[place] Urine Protein Urine Glucose (UA) Urine Ketones Urine Blood Urine Nitrite Urine Bilirubin Urine Urobilinogen Ur Leukocyte Esterase Hepatitis C Antibody Pending 07/04/24 07:13 WBC RBC Hgb Hct MCV MCH MCHC RDW Std Deviation RDW Coeff of Malik Plt Count MPV Immature Gran % (Auto) Neut % (Auto) Lymph % (Auto) [place] % (Auto) Eos % (Auto) Baso % (Auto) Neut # (Auto) Lymph # (Auto) [place] # (Auto) Eos # (Auto) Baso # (Auto) Immature Gran # (Auto) PT INR APTT PTT Ratio D-Dimer Heparin Anti-Xa, Unfract Sodium Potassium Chloride Carbon Dioxide Anion Gap BUN Creatinine Est Cr Clr Drug Dosing eGFR BUN/Creatinine Ratio Glucose POC Glucose 136 H Estimat Average Glucose Hemoglobin A1c Calcium Magnesium Total Bilirubin AST ALT Alkaline Phosphatase Troponin I High Sens B-Natriuretic Peptide Total Protein Albumin Globulin Albumin/Globulin Ratio Triglycerides Cholesterol LDL Cholesterol, Calc VLDL Cholesterol, Calc HDL Cholesterol Cholesterol/HDL Ratio Lipase Vitamin B12 TSH Urine Color Urine Appearance Urine pH Ur Specific Mclaughlin Urine Protein Urine Glucose (UA) Urine Ketones Urine Blood Urine Nitrite Urine Bilirubin Urine Urobilinogen Ur Leukocyte Esterase Hepatitis C Antibody Diagnostic Findings Chest X-Ray 07/03/24 10:28 XR chest 1V portable HISTORY: 69 years-old Male Chest pain, nonspecific COMPARISON: None TECHNIQUE: AP view of the chest FINDINGS: Cardiac silhouette is enlarged. No pneumothorax, pleural effusion, airspace consolidation or overt pulmonary edema. Bones appear grossly intact. IMPRESSION: No acute process. ACT 112: Negative or not required by law. The above report was generated using voice recognition software. It may contain grammatical, syntax or spelling errors. Electronically signed by: Jose Elias Wu M.D. 07/03/2024 11:41 AM Venous Doppler Study 07/04/24 00:00 EXAM: US venous doppler LE BI CLINICAL HISTORY: HISTORY: No previous. leg swelling, elevated d-dimer. TECH NOTES FOR RADIOLOGIST: No obvious DVT B/L LE. Exam limited by increased body habitus, BMI 52, and edema in bilat calves. TECHNIQUE: Bilateral lower extremity venous Doppler with reflux is performed. One or more of the following were performed- spectral analysis, resistive index, waveform analysis, and pulsed Doppler. COMPARISON: None. FINDINGS: Exam limited by increased body habitus. The examined deep venous system veins include the common femoral vein, femoral vein, popliteal vein, peroneal vein, anterior tibialis vein, and posterior tibialis vein. The examined superficial venous system includes the proximal great saphenous vein at the SFJ. All evaluated veins compress fully with applied transducer pressure. Additional Findings: Bilateral calves subcutaneous edema is noted. IMPRESSION: 1. Exam limited by increased body habitus. 2. No evidence of superficial and deep venous thrombosis 3. Bilateral calves subcutaneous edema is noted. DISCLAIMER:DVT could be missed early in the disease when clot burden is minimal. For patients with moderate and high pretest probability of DVT and negative ultrasound, the [employer] clinical guidelines recommend testing with a D-dimer assay or repeat ultrasound in 5-7 days. If symptoms worsen, the Society of radiologists in ultrasound recommends repeating ultrasound even earlier. Electronically signed by Tyler Briceno 07-04-2024 05:22 AM PG Care Time/CCT Total # of Minutes Spent Total Time Spent with Patient: Total time spent is greater than 50% in coordination of care (as documented) at patient's floor/unit and/or counseling patient: Coding Level of Care Code 98538 SUB INP/OBS CARE MIN Diagnoses NSTEMI (non-ST elevated myocardial infarction) I21.4 Hyperlipidemia E78.5 Hypertension I10 Type 2 diabetes mellitus E11.9 Morbid obesity with BMI of 50.0-59.9, adult E66.01; Z68.43 B12 deficiency E53.8
--- NOTE | 2024-07-04 10:58 | Pharmacy Report ---
Pharmacy Glycemic Short Note 2 - Date of Service July 04, 2024 - Glycemic Short BSG Results (Last 24 hours): 07/03/24 07/03/24 07/03/24 10:17 13:44 17:05 Glucose 160 H POC Glucose 128 H 136 H 07/03/24 07/04/24 07/04/24 19:57 06:45 07:13 Glucose 141 H POC Glucose 176 H 136 H OUTPATIENT ANTIDIABETIC REGIMEN: * pioglitazone 45mg po QAM HBA1c 6.9% on 07-04-24 ASSESSMENT: * 69 year old male admitted yesterday for chest pain/rule out [place]. Pharmacy was consulted for glycemic monitoring while patient is admitted. * BSGs have been stable since admit-- only requiring 1 unit of bolus insulin. Will continue bolus insulin with parameters already ordered. * Fasting BSG today was 136, will not start basal insulin at this time. PLAN FOR INPATIENT GLYCEMIC CONTROL: * Hold outpatient oral diabetes medications * Bolus insulin * NovoLog per scale ACHS or Q6hrs while NPO * Goal Range: Low 110 mg/dL - High 140 mg/dL * Correction Factor: 45 mg/dL/unit * No carb coverage
[2024-07-04] MEDS: MAGNESIUM OXIDE 400 MG TAB PO ONE (11:56)
[2024-07-04] MEDS: CYANOCOBALAMIN 1000 MCG/ML VIAL IM SCH (11:56)
[2024-07-04] MEDS: OPTIRAY 320 125ml IV ONE (13:20)
--- NOTE | 2024-07-04 13:35 | CT Scan Report ---
CT angio chest PE protocol CLINICAL HISTORY: elevated d-dimer TECHNIQUE: Multidetector row helical CT of the chest was performed with angiographic protocol. Garcia l and sagittal reformations were obtained. Coronal and sagittal MIPS were obtained from the axial higinio a set and were submitted for review. Automated dose lowering techniques and/or adjustment according to patient size were utilized for this exam. CT DOSE: 867.17 mGy.cm Comparison: None available at the time of this dictation. FINDINGS: Lungs and pleura: There is a 3 mm nodule in the left upper lobe (series 4 image 174). Heart and pericardium: Aortic valvular calcifications are seen. Vessels: Severe atherosclerotic changes in the aorta and coronary arteries. Mediastinum and corina: Unremarkable. Chest wall and lower neck: Thyroid nodules measuring up to 32 mm in diameter. Abdomen: Fatty replacement of the pancreas is seen. Bones: Degenerative changes in the thoracic spine. IMPRESSION: 1. No acute abnormality and in particular no evidence of pulmonary embolus. 2. Multiple thyroid nodules as above. Nonemergent ultrasound is recommended. 3. Small pulmonary nodules above. According to Fleischner criteria, no follow-up is required in low risk patients, in high-risk patients, a 12 month follow-up CT can be optionally performed. ACT 112: Positive. There are findings on this exam that require communication between the performing entity and the patient following Patient Test Result Information Act ([place] Act 112) guidelines. Electronically signed by: Tramaine Bonner M.D. 07/04/2024 1:33 PM
[2024-07-04] MEDS ORDERED: CALCIUM CARBONATE 500 MG CHEWABLE TAB PO PRN (16:32)
[2024-07-04 16:38] LABS: ANTI-Xa, UFH(UnfractionatedHep 0.22 IU/ml (0.3-0.7)
[2024-07-04] MEDS: CALCIUM CARBONATE 500 MG CHEWABLE TAB PO ONE (16:43)
[2024-07-04] MEDS: carvediloL 12.5 MG TAB PO SCH (16:45)
[2024-07-04] MEDS: FAMOTIDINE 10 MG TABLET PO ONE (17:30)
[2024-07-04] MEDS: CLOTRIMAZOLE/BETAMETHASONE CR 15 GM TUBE EXT PRN (17:32)
[2024-07-04] MEDS: ALUMINUM/MAGNESIUM/SIMETH (MAALOX MAX) 30 ML UDC PO STA (18:27)
[2024-07-04] MEDS: MAGNESIUM OXIDE 400 MG TAB PO SCH (20:41)
[2024-07-04 23:33] LABS: ANTI-Xa, UFH(UnfractionatedHep 0.32 IU/ml (0.3-0.7)
[2024-07-05 06:24] LABS: Hematocrit (blood only) 36.5 % (42.0-52.0); Mean Corpuscular Hgb Conc 35.6 g/dL (32.0-36.0); Mean Corpuscular Volume 87.1 fL (80.0-100.0); Mean Platelet Volume 8.7 fL (9.4-12.4); Platelet Count 271 K/uL (130-400); RDW Coefficient of Variation 14.4 % (11.5-14.5); RDW Standard Deviation 46.2 fL (36.4-46.3); Red Blood Count 4.19 M/uL (4.70-6.10); White Blood Count 5.73 K/ul (4.8-10.8)
[2024-07-05 06:44] LABS: BUN Creatinine Ratio 24.1 (10-20); Calcium 9.1 mg/dl (8.6-10.3); Creatinine Clr Calc Pharmacy 81.2 ml/min; Magnesium 1.9 mg/dl (1.7-2.4); Potassium 3.8 mmol/L (3.5-5.1)
[2024-07-05 06:55] LABS: ANTI-Xa, UFH(UnfractionatedHep 0.39 IU/ml (0.3-0.7)
[2024-07-05 07:06] LABS: Troponin I High Sensitivity 119.6 pg/ml (0-20)
--- NOTE | 2024-07-05 07:44 | Pre Anesthesia Assessment ---
Date of Service July 05, 2024 Pre Sedation Assessment Vital Signs Temp Pulse Pulse Resp BP BP BP 07/05/24 07:14 59 L 18 146/86 H 07/05/24 03:51 36.4 C L 60 20 134/69 07/04/24 23:07 36.3 C L 60 18 119/68 07/04/24 21:44 61 07/04/24 19:32 36.3 C L 63 18 127/73 07/04/24 15:14 36.2 C L 56 L 18 171/71 H 07/04/24 11:04 65 20 155/76 H 07/04/24 07:53 36.8 C 58 L 18 155/82 H Pulse Ox O2 Del Method 07/05/24 07:14 98 Room Air 07/05/24 03:51 96 Room Air 07/04/24 23:07 97 Room Air 07/04/24 21:44 07/04/24 19:32 94 Room Air 07/04/24 15:14 98 Room Air 07/04/24 11:04 94 Room Air 07/04/24 07:53 96 Room Air Cardiovascular RRR, no murmur, no edema Respiratory normal respiratory effort, lungs clear to auscultation Pre-Sedation Airway Assessment Smoking Status: Former smoker Hx Sleep Apnea: No Short, Thick Neck: Yes Thyromental Distance: < 3.5 Finger Breadths Oral Cavity: + WNL Mallampati Class: III ASA: ASA3 NPO Status Date of Last Intake of Fluids: 07/03/24 Time of Last Intake of Fluids: 21:00 Date of Last Intake of Solid Food: 07/03/24 Time of Last Intake of Solid Foods: 21:00 Notes The planned sedation has been discussed with the patient. Informed Consent was obtained. I have identified the patient, determined the appropriateness of sedation and have assessed the patient immediately prior to the procedure. All medicine(s) and interventions are by my order.
[2024-07-05] MEDS: fentaNYL citrate PF 100 MCG/2 ML VIAL ONE (08:16)
[2024-07-05] MEDS: HEPARIN (PORCINE) 1000 UNIT/ML 10 ML (CATH LAB USE ONLY) ONE (08:16)
[2024-07-05] MEDS: NITROGLYCERIN/D5W 100MCG/ML 20ML SYR ONE (08:17)
[2024-07-05] MEDS: niCARdipine 2,000 MCG/20 ML SYR ONE (08:17)
[2024-07-05] MEDS: MIDAZOLAM HCL 1 MG/ML 2ML VIAL ONE (08:17)
[2024-07-05] MEDS: IODIXANOL (VISIPAQUE) 320 MG/ML 100ML IV ONE (08:18)
[2024-07-05] MEDS: OPTIRAY 350 ONE (08:19)
--- NOTE | 2024-07-05 08:44 | Post Anesthesia Assessment ---
Date of Service July 05, 2024 Post Sedation Assessment Vital Signs Temp Pulse Pulse Resp BP BP BP 07/05/24 08:30 79 16 154/70 H 07/05/24 07:14 59 L 18 146/86 H 07/05/24 03:51 36.4 C L 60 20 134/69 07/04/24 23:07 36.3 C L 60 18 119/68 07/04/24 21:44 61 07/04/24 19:32 36.3 C L 63 18 127/73 07/04/24 15:14 36.2 C L 56 L 18 171/71 H 07/04/24 11:04 65 20 155/76 H Pulse Ox O2 Del Method 07/05/24 08:30 98 Room Air 07/05/24 07:14 98 Room Air 07/05/24 03:51 96 Room Air 07/04/24 23:07 97 Room Air 07/04/24 21:44 07/04/24 19:32 94 Room Air 07/04/24 15:14 98 Room Air 07/04/24 11:04 94 Room Air Recovery Score Activity: Moves 4 extremities Respiration: Deep Breath/Cough Circulation: +/-20% PreAnes Value Consciousness: Fully Awake Oxygen Saturation: > 92% On Room Air Post Anesthesia Score: 10 Discharge Sedation Level of Care: Fast Track Phase II Post Sedation Plan On clinical assessment, the patient appears to have tolerated the sedation without complications. Patient is recovering as anticipated. Patient will continue to be monitored by nursing and may be discharged when sedation discharge criteria are met per below protocol. Upon Completions of procedure up to 15 minutes continue every 5 minute vital signs and the P.A.R. score; then discharge to a Phase I or Fast Track to Phase II per the following guidelines: * Discharge Patient to appropriate Phase II area if PAR is 8 or greater or return to pre- procedure baseline. The post - procedure orders will be as directed. * If PAR score is less than 8 or not return to pre-procedure baseline then patient will follow Phase I monitoring till PAR is reached for Phase II. The Phase I may be done in procedure room or may call to secure a Phase I area. * If naloxone or flumazenil are used for reversal, hold in Phase I for continued monitoring from when last reversal dose was given for a minimum of 60 minutes or longer pending the nurse and/or physician discretion of patient condition before discharge to Phase II. Please call the Sedation Physician to re-evaluate and complete post-note for discharge to Phase II area. Do NOT discharge from procedure sedation or Phase 1 until post- sedation evaluation note is complete by procedure /sedation MD Sedation Discharge Instructions to be given to the patient at discharge to home. [facility] [place] Procedure Codes (Charges) Indication for Procedure Indication for procedure: NSTEMI Sedation/Anesthesia Procedure 1: Sedation/Anesthesia: 09546 Mod Sedation by the same physician;Init15 Min Child Age 5 & Up (start 0803) Total Sedation Time (minutes): 18 Procedure 2: Sedation/Anesthesia: 15868 Mod Sedation by the same physician; Ea [id number] Minutes (additional 3 min) Total Sedation Time (minutes): 18
[2024-07-05] MEDS: POTASSIUM CHLORIDE CRTAB 20 MEQ TABCR PO STA (09:15)
[2024-07-05] MEDS: VITAMIN B COMPLEX TAB PO SCH (09:18)
[2024-07-05] MEDS: MAGNESIUM OXIDE 400 MG TAB PO SCH (09:27)
--- NOTE | 2024-07-05 09:45 | Cardiac Catheterization ---
[facility] Data: Camera Tuning Engineer Cardiac Status Clinical evaluation leading to the procedure CAD Presenation: Non STEMI Anginal Classification: CCS III Cardiogenic Shock within 24 Hours: No Cardiac Arrest within 24 Hours: No Imaging Studies Past 6 Months: No Stress Studies Past 6 Months: No Coronary Anatomy Dominant: Right Left Main (% Stenosis): Normal LAD (% Stenosis): Proximal (Diffuse up to 80% stenosis), Mid (Diffuse 80%) and Distal (Focal 90%) D1 (% Stenosis): Ostial (95%) Circumflex (% Stenosis): Proximal (80 to 90%) and Distal (95%) OM1 (% Stenosis): Normal OM2 (% Stenosis): Normal L PL1 (% Stenosis): Normal RCA (% Stenosis): Mid (Diffuse 80 to 90%) and Distal (70 to 80% and 99% at the bifurcation) R PDA (% Stenosis): Normal R PL1 (% Stenosis): Normal Ramus (% Stenosis): Proximal (Diffuse up to 90%) Diagnostic Physicians Name: Brannon Altman MD, PhD Closure Device Percutaneous Entry Location: Radial Closure Device: Radial Band Recommendations: CABG Cardiac Cath Procedure Full Procedure Date July 05, 2024 Pre-Procedure Diagnosis Pre-Procedure Diagnosis: Non STEMI AUC Score AUC Score: 07 Post-Procedure Diagnosis Post-Procedure Diagnosis: Severe CAD Procedure(s) Performed Procedure(s) Performed: Coronary Angiography Rim Technician Brannon Altman MD, PhD Estimated Blood Loss Estimated Blood Loss: 5cc Medication(s) Medication(s): Fentanyl, Heparin, Lidocaine 1%, Nicardipine, Nitroglycerin and Versed Summary of Findings Brief description: Patient was brought to the cardiac catheterization suite where he was shaved and prepped in a sterile fashion. Sedated using IV Versed and fentanyl. Soft tissues of the right wrist were anesthetized using 4 mL of 1% Xylocaine. Right radial artery was accessed with a modified Seldinger technique and a 6 Indian radial artery glide sheath was placed. Patient was provided anticoagulation with IV heparin and antispasmodics including nicardipine and nitroglycerin. All catheters were advanced and exchanged over a 0.035 J-tip wire. Left coronary angiography in orthogonal views with a 5 Indian JL 3.5 diagnostic catheter. Right coronary angiography in orthogonal views with a 5 Indian JR4 diagnostic catheter. Attempted to perform left heart cath with a 5 Indian pigtail catheter. However, significant catheter within aorta and we were unable to cross the aortic valve. Diagnostic catheters were removed. Radial artery sheath was removed. Hemostasis was obtained using the TR band. Patient was hemodynamically stable and asymptomatic. He was returned to the recovery area. This ended the case. Coronary angiography findings: RNQ-bohti-wdhrowf vessel trifurcating into LAD, circumflex, and ramus. No significant disease. QTR-fhabc-kecmjlh and transapical. Proximally there is diffuse calcification and diffuse disease up to 80%. He gives a large branching D1 which has ostial to proximal 95% stenosis and then diffuse scattered disease. The mid LAD has diffuse disease of up to 80% and then becomes normal in caliber as it transitions to the distal segment. The distal segment has scattered plaques and a focal stenosis of 90% before the apex. GWi-tyblm-iysltqm and nondominant. Travels in the AV groove giving a first atrial branch. After this the proximal circumflex has diffuse disease of 80 to 90% before the OM1. OM1 without significant disease but relatively small. There is also an OM 2 of similar caliber and without disease. Distally the AV groove circumflex has 95% stenosis and provides a large posterolateral branch which appears to have minimal disease. Ramus-this is large caliber and branches near the apex. Proximally there is diffuse disease of up to 90%. TYY-erpbr-xrpfdga and dominant. Proximal segment appears relatively normal. The mid segment has diffuse disease appearing up to 80 to 90% stenosed. The distal RCA has diffuse 70 to 80% stenosis and there is 99% stenosis before the vessel bifurcates. There is a medium caliber PDA and a medium caliber posterolateral. Summary: 1. Severe multivessel coronary disease. Diffuse disease consistent with diabetes. 2. Unable to perform left ventriculogram. There is some suggestion of aortic stenosis. Further echocardiographic evaluation should be considered. 3. Recommend guideline directed medical therapy for secondary prevention of coronary disease including; low-dose aspirin, high intensity statin therapy, beta-eliel, and MICHAEL inhibitor/ARB. Patient is intolerant to statins and therefore is recommended for PCSK9 inhibition. 4. Also recommend referral to tertiary center for coronary artery bypass grafting evaluation. Hemodynamics Rest Ao:: 112/61 mmHg Final Ao: 110/75 mmHg LV: Not performed Recommendations Recommendations: CABG Radiation Exposure (mGy) 2140 mGy, fluoroscopy time 6.6 minutes Contrast (mls) 100 Anesthesia 1 mg Versed, 25 mcg fentanyl IV. Start 08, end time 820 Procedural Complication(s) None Disposition Camera Tuning Engineer Holding/Recovery I attest to the content of the Intraoperative Record and any orders documented therein. Any exceptions are noted below. [facility] Card Cath Procedure Codes Cardiac Catheterization Procedure 1: Cardiovascular Cath Procedures: 23011 Coronaries Moderate Sedation Procedure 1: Sedation/Anesthesia: 74209 Mod Sedation by the same physician;Init15 Min Child Age 5 & Up (Initial 15-minute, start time 08) Procedure 2: Sedation/Anesthesia: 08506 Mod Sedation by the same physician; Ea [id number] Minutes (Additional 3 min, end time 820) PG Care Time/CCT Total # of Minutes Spent Total Time Spent with Patient: Total time spent is greater than 50% in coordination of care (as documented) at patient's floor/unit and/or counseling patient:
--- NOTE | 2024-07-05 10:11 | Pharmacy Report ---
Pharmacy Glycemic Short Note 2 - Date of Service July 05, 2024 - Glycemic Short BSG Results (Last 24 hours): 07/04/24 07/04/24 07/04/24 11:06 16:09 20:04 Glucose POC Glucose 161 H 127 H 130 H 07/05/24 07/05/24 06:07 07:00 Glucose 140 H POC Glucose 145 H OUTPATIENT ANTIDIABETIC REGIMEN: * pioglitazone 45mg po QAM HBA1c 6.9% on 07-04-24 ASSESSMENT: 07/05 * Only 1 unit of insulin was administered yesterday and it was bolus insulin * Fasting bSG as 145mg/dL today and patient was NPO for the labor custodian today. No Basal insulin will be started. * BSG claire to 189mg/dL at lunch so CF tightened some. * Pharmacy will continue to monitor and make adjustments as needed. 07/04 * 69 year old male admitted yesterday for chest pain/rule out NM. Pharmacy was consulted for glycemic monitoring while patient is admitted. * BSGs have been stable since admit-- only requiring 1 unit of bolus insulin. Will continue bolus insulin with parameters already ordered. * Fasting BSG today was 136, will not start basal insulin at this time. PLAN FOR INPATIENT GLYCEMIC CONTROL: * Hold outpatient oral diabetes medications * Bolus insulin * NovoLog per scale ACHS or Q6hrs while NPO * Goal Range: Low 110 mg/dL - High 140 mg/dL * Correction Factor: 40 mg/dL/unit * No carb coverage
--- NOTE | 2024-07-05 10:38 | Hospitalist Progress Note ---
Date of Service July 05, 2024 Assessment & Plan (1) NSTEMI (non-ST elevated myocardial infarction): (2) Hyperlipidemia: (3) Hypertension: (4) Type 2 diabetes mellitus: (5) Morbid obesity with BMI of 50.0-59.9, adult: (6) B12 deficiency: Plan 69-year-old male with past medical history of hypertension, morbid obesity, type 2 diabetes mellitus who presents to the ED with burning substernal chest discomfort #NSTEMI #Multivessel coronary artery disease #Essential hypertension #Hyperlipidemia #Suspected ischemic cardiomyopathy, EF of 45% Patient was seen by cardiology Dr. Brannon Altman Patient underwent cardiac cath today which showed severe multivessel coronary artery disease. Cath report says unable to perform left ventriculogram, there is some suggestion of aortic stenosis. Cardiology has recommended continuing low-dose aspirin, high intensity statin, beta-eliel and MICHAEL inhibitor/ARB. Patient is intolerant to statins and therefore cardiology has recommended for PCSK9 inhibition Total cholesterol is 228 HDL is 50 LDL is 158 Patient is intolerant to statin, as per cardiology he would benefit from PCSK9 inhibition. 2D echo reviewed: Difficult study due to body habitus, shows moderate concentric LVH with EF of 45% Continue aspirin 81 mg daily Continue carvedilol 12.5 mg p.o. twice daily Continue losartan 50 mg p.o. daily Continue Bumex 1 mg p.o. daily Hydralazine IV as needed for hypertension per cardiology I/O monitoring Daily weights Cardiology is initiating transfer to [facility] after speaking to cardiothoracic surgery there: Will await recommendations from cardiology regarding transfer #Type 2 diabetes mellitus A1c 6.9 Pharmacy consult for glycemic control I do not believe pioglitazone is a good medicine of choice for this patient and he would benefit from endocrinology referral outpatient for diabetes management I believe this patient would also benefit from GLP-1 agonist or SGLT2 antagonist: Discussed with cardiology and okay for patient to be on Jardiance The patient is going to [facility], we will hold off on initiating Jardiance for now #Morbid obesity BMI is 52.1 Lifestyle counseling regarding diet, exercise and weight loss provided Outpatient follow with PCP and endocrinology #Hypomagnesemia Magnesium replacement Monitor levels #Elevated D-dimer D-dimer 716 Bilateral lower extremity Doppler showed no evidence of DVT CTA showed no acute abnormality, no evidence of PE Patient is already on heparin infusion #Multiple thyroid nodules Incidental finding on CTA of the chest TSH is 1.179 Outpatient follow-up with PCP for nonemergent ultrasound #Small pulmonary nodules Incidental finding on CT of the chest 12-month follow-up with CT recommended as outpatient CODE STATUS: Full code DVT prophylaxis: Patient on heparin infusion Care plan discussed with patient, nursing staff and updated at bedside Admission and Anticipated Discharge Date Admission Date: July 04, 2024 Subjective Patient seen and examined at bedside Labs reviewed Patient underwent cardiac cath this morning Dr. Jacob her paint preparer in room while I was speaking with the patient Patient complaining of intermittent heartburn and feels anxious He would prefer to get CABG done sooner than later and is okay to be transferred to [facility]: Dr. Altman is going to speak to a cardiothoracic surgeon at [facility] to initiate transfer and will see if there are beds available Denies any fever, shortness of breath, cough, nausea, vomiting or abdominal pain Physical Exam Physical Exam: General: No acute respiratory distress, mildly anxious Psych: Awake and alert, oriented x 3 HEENT: Anicteric sclera, moist oral mucosa CVS: Regular rate and rhythm, systolic murmur audible Lungs: Bilateral air entry, no wheezing noted Abdomen: Soft, nontender, obese abdomen no rebound, no guarding Ext: Trace pitting edema noted, no calf tenderness Neuro: No focal motor deficits noted Results & Data Results & Data Vital Signs (Past 12 Hours) Vital Signs Temp Pulse Pulse Resp BP BP BP 07/05/24 09:59 63 18 115/49 L 07/05/24 09:29 61 18 130/72 07/05/24 08:45 63 16 157/64 H 07/05/24 08:30 79 16 154/70 H 07/05/24 07:14 59 L 18 146/86 H 07/05/24 03:51 36.4 C L 60 20 134/69 07/04/24 23:07 36.3 C L 60 18 119/68 Pulse Ox O2 Del Method 07/05/24 09:59 99 Room Air 07/05/24 09:29 95 Room Air 07/05/24 08:45 98 Room Air 07/05/24 08:30 98 Room Air 07/05/24 07:14 98 Room Air 07/05/24 03:51 96 Room Air 07/04/24 23:07 97 Room Air Laboratory Results Laboratory Results - last 24 hr 07/04/24 07/04/24 07/04/24 06:45 11:06 15:19 WBC RBC Hgb Hct MCV MCH MCHC RDW Std Deviation RDW Coeff of Malik Plt Count MPV Heparin Anti-Xa, Unfract 0.22 L Sodium Potassium Chloride Carbon Dioxide Anion Gap BUN Creatinine Est Cr Clr Drug Dosing eGFR BUN/Creatinine Ratio Glucose POC Glucose 161 H Calcium Magnesium Troponin I High Sens Hepatitis C Antibody Negative 07/04/24 07/04/24 07/04/24 16:09 20:04 22:42 WBC RBC Hgb Hct MCV MCH MCHC RDW Std Deviation RDW Coeff of Malik Plt Count MPV Heparin Anti-Xa, Unfract 0.32 Sodium Potassium Chloride Carbon Dioxide Anion Gap BUN Creatinine Est Cr Clr Drug Dosing eGFR BUN/Creatinine Ratio Glucose POC Glucose 127 H 130 H Calcium Magnesium Troponin I High Sens Hepatitis C Antibody 07/05/24 07/05/24 06:07 07:00 WBC 5.73 RBC 4.19 L Hgb 13.0 L Hct 36.5 L MCV 87.1 MCH 31.0 MCHC 35.6 RDW Std Deviation 46.2 RDW Coeff of Malik 14.4 Plt Count 271 MPV 8.7 L Heparin Anti-Xa, Unfract 0.39 Sodium 136 Potassium 3.8 Chloride 98 Carbon Dioxide 30 Anion Gap 8 BUN 33 H Creatinine 1.37 Est Cr Clr Drug Dosing 81.2 eGFR 56.54 BUN/Creatinine Ratio 24.1 H Glucose 140 H POC Glucose 145 H Calcium 9.1 Magnesium 1.9 Troponin I High Sens 119.6 H* D Hepatitis C Antibody Diagnostic Findings Chest CTA 07/04/24 11:02 CT angio chest PE protocol CLINICAL HISTORY: elevated d-dimer TECHNIQUE: Multidetector row helical CT of the chest was performed with angiographic protocol. Coronal and sagittal reformations were obtained. Coronal and sagittal MIPS were obtained from the axial data set and were submitted for review. Automated dose lowering techniques and/or adjustment according to patient size were utilized for this exam. CT DOSE: 867.17 mGy.cm Comparison: None available at the time of this dictation. FINDINGS: Lungs and pleura: There is a 3 mm nodule in the left upper lobe (series 4 image 174). Heart and pericardium: Aortic valvular calcifications are seen. Vessels: Severe atherosclerotic changes in the aorta and coronary arteries. Mediastinum and corina: Unremarkable. Chest wall and lower neck: Thyroid nodules measuring up to 32 mm in diameter. Abdomen: Fatty replacement of the pancreas is seen. Bones: Degenerative changes in the thoracic spine. IMPRESSION: 1. No acute abnormality and in particular no evidence of pulmonary embolus. 2. Multiple thyroid nodules as above. Nonemergent ultrasound is recommended. 3. Small pulmonary nodules above. According to Fleischner criteria, no follow- up is required in low risk patients, in high-risk patients, a 12 month follow-up CT can be optionally performed. ACT 112: Positive. There are findings on this exam that require communication between the performing entity and the patient following Patient Test Result Information Act ([place] Act 112) guidelines. Electronically signed by: Tramaine Bonner M.D. 07/04/2024 1:33 PM PG Care Time/CCT Total # of Minutes Spent Total Time Spent with Patient: Total time spent is greater than 50% in coordination of care (as documented) at patient's floor/unit and/or counseling patient: Coding Level of Care Code 16019 SUB INP/OBS CARE 3/50MIN Diagnoses NSTEMI (non-ST elevated myocardial infarction) I21.4 Hyperlipidemia E78.5 Hypertension I10 Type 2 diabetes mellitus E11.9 Morbid obesity with BMI of 50.0-59.9, adult E66.01; Z68.43 B12 deficiency E53.8
[2024-07-05] MEDS ORDERED: LORazepam 0.5 MG TAB PO PRN (10:39)
[2024-07-05] MEDS: LORazepam 0.5 MG TAB PO STA (10:51)
[2024-07-05] MEDS: HEPARIN SOD 5,000 UNIT/0.5 ML VIAL SQ SCH (14:13)
--- NOTE | 2024-07-05 20:41 | Discharge Summary ---
Discharge Summary Date of Service July 05, 2024 Principal Dx & Hospital Course #1 = Principal Diagnosis (1) NSTEMI (non-ST elevated myocardial infarction): (2) Hyperlipidemia: (3) Hypertension: (4) Type 2 diabetes mellitus: (5) Morbid obesity with BMI of 50.0-59.9, adult: (6) B12 deficiency: Plan 69-year-old male with past medical history of hypertension, morbid obesity, type 2 diabetes mellitus who presents to the ED with burning substernal chest discomfort #NSTEMI #Multivessel coronary artery disease #Essential hypertension #Hyperlipidemia #Suspected ischemic cardiomyopathy, EF of 45% Patient was seen by cardiology Dr. Brannon Altman Patient underwent cardiac cath today which showed severe multivessel coronary artery disease. Cath report says unable to perform left ventriculogram, there is some suggestion of aortic stenosis. Cardiology has recommended continuing low-dose aspirin, high intensity statin, beta-eliel and MICHAEL inhibitor/ARB. Patient is intolerant to statins and therefore cardiology has recommended for PCSK9 inhibition Total cholesterol is 228 HDL is 50 LDL is 158 Patient is intolerant to statin, as per cardiology he would benefit from PCSK9 inhibition. 2D echo reviewed: Difficult study due to body habitus, shows moderate concentric LVH with EF of 45% Continue aspirin 81 mg daily Continue carvedilol 12.5 mg p.o. twice daily Continue Irebsartan 150 mg p.o. daily Continue Bumex 1 mg p.o. daily Cardiology is initiating transfer to [facility] after speaking to cardiothoracic surgery there: As Per Dr. Altman, patient accepted in transfer by CT Surgeon Dr. Navarro at [facility] #Type 2 diabetes mellitus A1c 6.9 I do not believe pioglitazone is a good medicine of choice for this patient and he would benefit from endocrinology referral outpatient for diabetes management I believe this patient would also benefit from GLP-1 agonist or SGLT2 antagonist: Discussed with cardiology and okay for patient to be on Jardiance The patient is going to [facility], we will hold off on initiating Jardiance for now #Morbid obesity BMI is 52.1 Lifestyle counseling regarding diet, exercise and weight loss provided Outpatient follow with PCP #Elevated D-dimer D-dimer 716 Bilateral lower extremity Doppler showed no evidence of DVT CTA showed no acute abnormality, no evidence of PE #Multiple thyroid nodules Incidental finding on CTA of the chest TSH is 1.179 Outpatient follow-up with PCP for nonemergent ultrasound: discussed with patient and his #Small pulmonary nodules Incidental finding on CT of the chest 12-month follow-up with CT recommended as outpatient: discussed with patient and his Patient scheduled for discharge to [facility] under care of CT surgery Dr. Nvaarro for CABG. Patient and aware of plan and in agreement Admission HPI Per Admitting Provider Georges oPllock is a 69 year old male who presents to the ER with chest pain. He reports 2 weeks of exertional burning sensation over his chest. He has been taking tums which has helped a stomach sensation but not this exertion pain. It has been coming on more frequently and with increased duration. Yesterday he reports it lasted for a couple of hours but was only intense on exertion during that time. Possible worse on eating. No radiation or acid taste in his mouth. Associated shortness of breath, no diaphoresis or nausea. No palpitations, claudication, presyncope or syncope. No orthopnea or paroxysmal nocturnal dyspnea although he also does not sleep flat due to chronic back problems. Prior to this he has noticed lack of energy over the last 1.5 years. Leg swelling is chronic but was worse 6 months ago and improved with the addition of furosemide. He has noticed some left shoulder pain but this is not associated with the burning chest pain. He has been treated for bursitis and when cold it exacerbates this pain. It is worse on movement (shoulder extension). He recently had a sore throat and stiff neck on the left side 2 days ago but that has now resolved. He has not previously seen a angular developer but has an appointment to see Dr Nicholas in the Spring due to extensive risk factors for coronary artery disease. He has hypertension on 4 medications, diabetes on pioglitazone (last HbA1C 7.2 by report), untreated hyperlipemia (intolerant to statins with leg pain), family history with heart attacks with his brother, mother, father and uncles (all over the age of 5050 years old), obesity (BMI 52). He quit smoking in 1989 (15 pack- year history). No personal history of cardiovascular disease. While in the ER he denies any current chest burning sensation. Discharge Exam General: No acute respiratory distress, mildly anxious Psych: Awake and alert, oriented x 3 HEENT: Anicteric sclera, moist oral mucosa CVS: Regular rate and rhythm, systolic murmur audible Lungs: Bilateral air entry, no wheezing noted Abdomen: Soft, nontender, obese abdomen no rebound, no guarding Ext: Trace pitting edema noted, no calf tenderness Neuro: No focal motor deficits noted Discharge Plan Discharge Items Patient Disposition: Transfer Acute Care Hospital Reason For Visit: UNSTABLE ANGINA Discharge Diagnosis: #NSTEMI #Multivessel coronary artery disease #Essential hypertension #Hyperlipidemia #Suspected ischemic cardiomyopathy, EF of 45% #Type 2 diabetes mellitus #Morbid obesity #Multiple thyroid nodules #Small pulmonary nodules Activity: As commented below Activity Comment: As tolerated with assistance Non-emergency contact: Primary Care Provider Call non-emergency contact if: you have any medication questions, your symptoms worsen and you have a fever Follow-up/Referrals: Zach Pollock MD [Primary Care Provider] - Diet: Carb Consistent or DM2, Heart Healthy and Low Fat Addtl Attending Provider Instructions: DISCHARGE INSTRUCTION TO PATIENT/FAMILY: You are being transferred to [facility] for coronary artery bypass surgery You will be given updated discharge instructions and medication recommendations upon discharge from [facility] after surgery Pending Studies at Discharge: No Stand-Alone Forms: My [facility] Skilled Items Patient informed of condition?: Yes DNR: No Discharge Level of Care: Other Communicable Disease: No Discharge Prognosis: Stable Lines: None Urinary Catheter: No Medications and DC Order Prescriptions: New carvedilol 12.5 mg Tablet 12.5 mg PO BIDM Qty: 1 0RF aspirin 81 mg Tablet,Delayed Release (Dr/Ec) 81 mg PO QAM Qty: 1 0RF bumetanide 1 mg Tablet 1 mg PO QAM Qty: 1 0RF vitamin B complex [Vitamins B Complex] Capsule 1 cap PO QAM Qty: 1 0RF Continued tamsulosin 0.4 mg capsule 0.4 mg PO QAM clotrimazole-betamethasone 1-0.05 % cream 1 applic TOPICAL BID irbesartan 150 mg tablet 150 mg PO QAM Discontinued atenolol 100 mg tablet 100 mg PO QAM pioglitazone 45 mg tablet 45 mg PO QAM hydrochlorothiazide 25 mg tablet 25 mg PO QAM furosemide 20 mg tablet 20 mg PO QAM Discharge Orders: Discharge Order (Routine); Ordered 07/05/24 Ordered By: Amador White/Other Patient Handouts: Managing Type 2 Diabetes Admission Data Admit Date/Time: 07/04/24 14:14 Attending Provider: Amador Wong Admit Provider: Zev Mccall Primary Care Provider: Zach Pollock Other Providers: Zev Mccall; Mirza Gutierrez Other Interventions: Discharge Summary Assessment (RN) Last Done: 07/06/24 01:14 Hospital Stay Data Consultations 07/03/24 11:50 ED Decision to Admit Stat 07/03/24 12:18 Consult Cardiology Routine 07/05/24 17:10 Burn CD for patient Stat Procedures Performed Operation Date: 07/05/24 08:00 Actual Procedures p Cineradiography w/Routine Exam(Right) - Brannon Altman MD, PhD s Cath, Coronaries ONLY (no LV) - Brannon Altman MD, PhD Diagnostic Imagining Performed 07/04/24 US venous doppler LE BI Urgent 07/04/24 07:57 CL Cath Imgs for PACS use only Routine 07/04/24 08:00 EP Lab Images for PACS ONCE 07/04/24 11:02 CT angio chest PE protocol Stat 07/05/24 06:35 CL Cath Imgs for PACS use only Routine Chest X-Ray 07/03/24 10:28 XR chest 1V portable HISTORY: 69 years-old Male Chest pain, nonspecific COMPARISON: None TECHNIQUE: AP view of the chest FINDINGS: Cardiac silhouette is enlarged. No pneumothorax, pleural effusion, airspace consolidation or overt pulmonary edema. Bones appear grossly intact. IMPRESSION: No acute process. ACT 112: Negative or not required by law. The above report was generated using voice recognition software. It may contain grammatical, syntax or spelling errors. Electronically signed by: Jose Elias Wu M.D. 07/03/2024 11:41 AM Venous Doppler Study 07/04/24 00:00 EXAM: US venous doppler LE BI CLINICAL HISTORY: HISTORY: No previous. leg swelling, elevated d-dimer. TECH NOTES FOR RADIOLOGIST: No obvious DVT B/L LE. Exam limited by increased body habitus, BMI 52, and edema in bilat calves. TECHNIQUE: Bilateral lower extremity venous Doppler with reflux is performed. One or more of the following were performed- spectral analysis, resistive index, waveform analysis, and pulsed Doppler. COMPARISON: None. FINDINGS: Exam limited by increased body habitus. The examined deep venous system veins include the common femoral vein, femoral vein, popliteal vein, peroneal vein, anterior tibialis vein, and posterior tibialis vein. The examined superficial venous system includes the proximal great saphenous vein at the SFJ. All evaluated veins compress fully with applied transducer pressure. Additional Findings: Bilateral calves subcutaneous edema is noted. IMPRESSION: 1. Exam limited by increased body habitus. 2. No evidence of superficial and deep venous thrombosis 3. Bilateral calves subcutaneous edema is noted. DISCLAIMER:DVT could be missed early in the disease when clot burden is minimal. For patients with moderate and high pretest probability of DVT and negative ultrasound, the [place] [employer] clinical guidelines recommend testing with a D-dimer assay or repeat ultrasound in 5-7 days. If symptoms worsen, the Society of radiologists in ultrasound recommends repeating ultrasound even earlier. Electronically signed by Tyler Briceno 07-04-2024 05:22 AM Chest CTA 07/04/24 11:02 CT angio chest PE protocol CLINICAL HISTORY: elevated d-dimer TECHNIQUE: Multidetector row helical CT of the chest was performed with angiographic protocol. Coronal and sagittal reformations were obtained. Coronal and sagittal MIPS were obtained from the axial data set and were submitted for review. Automated dose lowering techniques and/or adjustment according to patient size were utilized for this exam. CT DOSE: 867.17 mGy.cm Comparison: None available at the time of this dictation. FINDINGS: Lungs and pleura: There is a 3 mm nodule in the left upper lobe (series 4 image 174). Heart and pericardium: Aortic valvular calcifications are seen. Vessels: Severe atherosclerotic changes in the aorta and coronary arteries. Mediastinum and corina: Unremarkable. Chest wall and lower neck: Thyroid nodules measuring up to 32 mm in diameter. Abdomen: Fatty replacement of the pancreas is seen. Bones: Degenerative changes in the thoracic spine. IMPRESSION: 1. No acute abnormality and in particular no evidence of pulmonary embolus. 2. Multiple thyroid nodules as above. Nonemergent ultrasound is recommended. 3. Small pulmonary nodules above. According to Fleischner criteria, no follow- up is required in low risk patients, in high-risk patients, a 12 month follow-up CT can be optionally performed. ACT 112: Positive. There are findings on this exam that require communication between the performing entity and the patient following Patient Test Result Information Act ([place] Act 112) guidelines. Electronically signed by: Tramaine Bonner M.D. 07/04/2024 1:33 PM Laboratory Results - last 48 hr 07/03/24 07/04/24 07/04/24 23:00 06:45 07:13 WBC 6.44 RBC 4.38 L Hgb 13.0 L Hct 38.9 L MCV 88.8 MCH 29.7 MCHC 33.4 RDW Std Deviation 45.9 RDW Coeff of Malik 14.2 Plt Count 284 MPV 8.5 L Immature Gran % (Auto) 0.3 Neut % (Auto) 64.1 Lymph % (Auto) 27.3 [place] % (Auto) 6.5 Eos % (Auto) 1.2 Baso % (Auto) 0.6 Neut # (Auto) 4.12 Lymph # (Auto) 1.76 [place] # (Auto) 0.42 Eos # (Auto) 0.08 Baso # (Auto) 0.04 Immature Gran # (Auto) 0.02 Heparin Anti-Xa, Unfract 0.33 0.25 L Sodium 137 Potassium 4.0 Chloride 101 Carbon Dioxide 28 Anion Gap 8 BUN 33 H Creatinine 1.20 Est Cr Clr Drug Dosing 92.7 eGFR 66.28 BUN/Creatinine Ratio 27.5 H Glucose 141 H POC Glucose 136 H Estimat Average Glucose 151 Hemoglobin A1c 6.9 H Calcium 9.3 Magnesium 2.0 Troponin I High Sens 457.3 H* D 289.1 H* D Triglycerides 98 Cholesterol 228 H LDL Cholesterol, Calc 158 VLDL Cholesterol, Calc 20 HDL Cholesterol 50 Cholesterol/HDL Ratio 4.6 Vitamin B12 151 L Hepatitis C Antibody Negative 07/04/24 07/04/24 07/04/24 11:06 15:19 16:09 WBC RBC Hgb Hct MCV MCH MCHC RDW Std Deviation RDW Coeff of Malik Plt Count MPV Immature Gran % (Auto) Neut % (Auto) Lymph % (Auto) [place] % (Auto) Eos % (Auto) Baso % (Auto) Neut # (Auto) Lymph # (Auto) [place] # (Auto) Eos # (Auto) Baso # (Auto) Immature Gran # (Auto) Heparin Anti-Xa, Unfract 0.22 L Sodium Potassium Chloride Carbon Dioxide Anion Gap BUN Creatinine Est Cr Clr Drug Dosing eGFR BUN/Creatinine Ratio Glucose POC Glucose 161 H 127 H Estimat Average Glucose Hemoglobin A1c Calcium Magnesium Troponin I High Sens Triglycerides Cholesterol LDL Cholesterol, Calc VLDL Cholesterol, Calc HDL Cholesterol Cholesterol/HDL Ratio Vitamin B12 Hepatitis C Antibody 07/04/24 07/04/24 07/05/24 20:04 22:42 06:07 WBC 5.73 RBC 4.19 L Hgb 13.0 L Hct 36.5 L MCV 87.1 MCH 31.0 MCHC 35.6 RDW Std Deviation 46.2 RDW Coeff of Malik 14.4 Plt Count 271 MPV 8.7 L Immature Gran % (Auto) Neut % (Auto) Lymph % (Auto) [place] % (Auto) Eos % (Auto) Baso % (Auto) Neut # (Auto) Lymph # (Auto) [place] # (Auto) Eos # (Auto) Baso # (Auto) Immature Gran # (Auto) Heparin Anti-Xa, Unfract 0.32 0.39 Sodium 136 Potassium 3.8 Chloride 98 Carbon Dioxide 30 Anion Gap 8 BUN 33 H Creatinine 1.37 Est Cr Clr Drug Dosing 81.2 eGFR 56.54 BUN/Creatinine Ratio 24.1 H Glucose 140 H POC Glucose 130 H Estimat Average Glucose Hemoglobin A1c Calcium 9.1 Magnesium 1.9 Troponin I High Sens 119.6 H* D Triglycerides Cholesterol LDL Cholesterol, Calc VLDL Cholesterol, Calc HDL Cholesterol Cholesterol/HDL Ratio Vitamin B12 Hepatitis C Antibody 07/05/24 07/05/24 07/05/24 07:00 11:50 16:59 WBC RBC Hgb Hct MCV MCH MCHC RDW Std Deviation RDW Coeff of Malik Plt Count MPV Immature Gran % (Auto) Neut % (Auto) Lymph % (Auto) [place] % (Auto) Eos % (Auto) Baso % (Auto) Neut # (Auto) Lymph # (Auto) [place] # (Auto) Eos # (Auto) Baso # (Auto) Immature Gran # (Auto) Heparin Anti-Xa, Unfract Sodium Potassium Chloride Carbon Dioxide Anion Gap BUN Creatinine Est Cr Clr Drug Dosing eGFR BUN/Creatinine Ratio Glucose POC Glucose 145 H 189 H 112 H Estimat Average Glucose Hemoglobin A1c Calcium Magnesium Troponin I High Sens Triglycerides Cholesterol LDL Cholesterol, Calc VLDL Cholesterol, Calc HDL Cholesterol Cholesterol/HDL Ratio Vitamin B12 Hepatitis C Antibody 07/05/24 20:31 WBC RBC Hgb Hct MCV MCH MCHC RDW Std Deviation RDW Coeff of Malik Plt Count MPV Immature Gran % (Auto) Neut % (Auto) Lymph % (Auto) [place] % (Auto) Eos % (Auto) Baso % (Auto) Neut # (Auto) Lymph # (Auto) [place] # (Auto) Eos # (Auto) Baso # (Auto) Immature Gran # (Auto) Heparin Anti-Xa, Unfract Sodium Potassium Chloride Carbon Dioxide Anion Gap BUN Creatinine Est Cr Clr Drug Dosing eGFR BUN/Creatinine Ratio Glucose POC Glucose 161 H Estimat Average Glucose Hemoglobin A1c Calcium Magnesium Troponin I High Sens Triglycerides Cholesterol LDL Cholesterol, Calc VLDL Cholesterol, Calc HDL Cholesterol Cholesterol/HDL Ratio Vitamin B12 Hepatitis C Antibody Pending Results Patient Have Any Pending Studies at Discharge: No Discharge Instructions Given to Patient (Per Discharging Provider) DISCHARGE INSTRUCTION TO PATIENT/FAMILY: You are being transferred to [facility] for coronary artery bypass surgery You will be given updated discharge instructions and medication recommendations upon discharge from [facility] after surgery Total Time Total Time Spent Total Time Spent (In Minutes): 40 minutes Coding Level of Care Code 93336 INP/OBS DISCH >30 MIN Diagnoses NSTEMI (non-ST elevated myocardial infarction) I21.4 Hyperlipidemia E78.5 Hypertension I10 Type 2 diabetes mellitus E11.9 Morbid obesity with BMI of 50.0-59.9, adult E66.01; Z68.43 B12 deficiency E53.8
[2024-07-05 23:43] VITALS: PULSE 63; RESP 18; TEMP 97.3; O2SAT 93
[2024-07-06] MEDS: LORazepam 0.5 MG TAB PO PRN (01:08)
[2024-07-06 01:15] VITALS: BP 134/69
== END 2024-07-06 01:30 | disposition short-term general hospital (02) | DRG 281 ==
LOC: 4W 10:00 → ED 10:00 → SUATTDRO 12:17 → 4W 13:26
PROC: CLB.CCO (2024-07-05 08:00)

== ENCOUNTER 2024-08-19 16:56 | Inpatient (IN) ==
[2024-08-19 18:12] LABS: Basophils # (auto) 0.06 K/uL (0.00-0.20); Basophils % (auto) 0.9 %; Eosinophils # (auto) 0.09 K/uL (0.00-0.50); Eosinophils % (auto) 1.3 %; Hematocrit (blood only) 38.5 % (42.0-52.0); Hemoglobin 12.7 g/dl (14.0-18.0); Immature Granulocytes # (auto) 0.02 K/uL (0.01-0.20); Immature Granulocytes % (auto) 0.3 %; Lymphocytes # (auto) 1.84 K/uL (1.20-3.40); Lymphocytes % (auto) 26.3 %; Mean Corpuscular Hemoglobin 27.9 pg (25.0-34.0); Mean Corpuscular Volume 84.6 fL (80.0-100.0); Mean Platelet Volume 9.1 fL (9.4-12.4); Monocytes # (auto) 0.61 K/uL (0.11-0.59); Monocytes % (auto) 8.7 %; Neutrophils # (auto) 4.38 K/uL (1.40-6.50); Neutrophils % (auto) 62.5 %; Platelet Count 373 K/uL (130-400); RDW Coefficient of Variation 14.6 % (11.5-14.5); RDW Standard Deviation 44.9 fL (36.4-46.3); Red Blood Count 4.55 M/uL (4.70-6.10)
[2024-08-19 18:28] LABS: Alanine Aminotransferase 8 U/L (7-52); Albumin Globulin Ratio 1.2 (0.9-2); Albumin Level 3.5 gm/dl (3.4-5.0); Alkaline Phosphatase 67 U/L (34-104); Anion Gap 10 (3-11); Aspartate Aminotransferase 19 U/L (13-39); BUN Creatinine Ratio 12.9 (10-20); Bilirubin,Total 1.3 mg/dl (0.2-1.0); Blood Urea Nitrogen 13 mg/dl (6-23); Calcium 9.2 mg/dl (8.6-10.3); Carbon Dioxide 35 mmol/L (21-32); Chloride 91 mmol/L (98-107); Globulin 2.9 gm/dl (2.5-4.0); Glucose 123 mg/dl (70-99(Fasting)); Magnesium 1.2 mg/dl (1.7-2.4); Potassium 3.5 mmol/L (3.5-5.1); Sodium 136 mmol/L (136-145); Total Protein 6.4 gm/dl (6.0-8.3)
[2024-08-19 18:34] LABS: Troponin I High Sensitivity 24.8 pg/ml (0-20)
--- NOTE | 2024-08-19 18:38 | Emergency Department Note ---
Impression & Plan PAYNE (dyspnea on exertion), History of coronary artery bypass graft x 3, Pleural effusion on left, Weakness ED Provider Note Provider: Juan Mckinney MD CHIEF COMPLAINT: Weakness HISTORY OF PRESENT ILLNESS: Patient is a 69-year-old gentleman past medical history significant for diabetes, hypertension, cardiac disease status post CABG last month presenting here today with reporting over the last day or so he has had increased weakness of the legs. States he feels a bit tired and bit of dry mouth. States in the past when he had this recently during his surgery his electrolytes were off so came here for evaluation. Has been a chronic swelling of the legs but this is doing pretty well. Has been compliant with his home Lasix. Has well-healing wound on the chest and a small wound on the leg he thinks it might be a retained suture but no significant redness or significant drainage. Denies any significant chest discomfort or abdominal pain. No fever cough or cold. Does not feel that short of breath but cannot get a good deep breath particular with ambulation. With ambulation does need to sit and then take several breath after going a short distance. States on a spirometer he is only getting about 500 cc and instead of previously just over thousand. PAST MEDICAL HISTORY: As noted above MEDICATIONS: Reviewed home medications SOCIAL HISTORY: PHYSICAL EXAM: GENERAL: alert and oriented in no acute distress on stretcher Head: normocephalic and atraumatic EYES: No injection, discharge or icterus. NECK: Trachea midline. ENT: Mucous membranes pink and moist. LUNGS: Airway patent. No retractions. Breath sounds diminished in general, somewhat worse on the left HEART: Regular rate and rhythm. No chest wall tenderness with well-healing midline sternal scar slight scab still present with very inferior portion without significant erythema or discharge noted. ABDOMEN: Soft and non-tender, without guarding or rebound. SKIN: Acyanotic, warm, dry, without rashes EXTREMITIES: Without tenderness with 1-2+ lower extremity edema. The left lower leg mid leg has appears to be 1 small suture remaining as well as a scab just medial to the knee trace discharge without significant erythema. NEUROLOGICAL: No focal deficits. No aphasia. No facial droop or slurred speech. Normal strength and tone in the extremities. Sensation to gross touch normal. Ambulatory. EK bpm normal sinus rhythm. No PVC or PAC. No acute ST segment elevation with some anterior T wave inversions noted. QTc 482. CONTINUOUS CARDIAC MONITORING: was ordered and showed a heart rate of 80s to 90s bpm in normal sinus rhythm Patient's laboratory studies and imaging reviewed. Differential includes Infection, dehydration, metabolic abnormality, hypo/hyperglycemia, electrolyte disturbance, anemia, hypoxia, cardiac sources, intracerebral event, toxicologic, neurologic, as well as other pathologies. IMPRESSION/MEDICAL DECISION MAKING: Denies significant cough or cold symptoms but COVID flu RSV test is sent. EKG obtained without evidence of STEMI and not having active chest pain. Recent CABG. Troponin and basic labs ordered. No severe anemia or significant leukocytosis. Sternal wound and leg wound do not appear significantly infected. Doubt DVT. Not significantly hypoxic or tachycardic and doubt PE at this time. Electrolytes and kidney function completed without real severe abnormalities noted to explain his generalized weakness. Chest x-ray obtained with what appears to be fair opacification of the left lung area. As such we will obtain a CT scan with contrast of the chest to further evaluate this and also exclude PE. Troponin here 24.8 not significantly elevated and less than priors. Discussed with the patient and he is in agreement. CT scan shows per radiology report without evidence of PE or pericardial effusion. Postsurgical changes with what appears to be large left pleural effusion feeling approximate two thirds left hemithorax. Atelectasis of the left lung with a small amount of central edema on the right. No pneumothorax. Did reach out to the patient's CT surgery group at to discuss this as he is just over a month postop of his CABG. in discussion with Dr. Mansfield he stated he could either be drained here locally or down at [place]. Did reach out discussed with the pulmonary team here who performed thoracentesis for us at the hospital to discuss the case. Discussed with Dr. Whitley who is agreeable to plan to evaluate the patient in the morning for ultrasound thoracentesis. Respiratory viral panel here is negative. Updated the patient who is happy with the plan to stay here rather than have to be transferred. Will reach out to the hospitalist discussed admission for further pulmonary care in the morning. DIAGNOSIS: Weakness, shortness of breath, left pleural effusion, history of CABG DISPOSITION: Hospitalist will evaluate Patient was agreeable with this plan. Past Med/Surg History Problem List (Updated 08/19/24 @ 21:38 by Juan Mckinney M.D.) Weakness (Acute) Pleural effusion on left (Acute) History of coronary artery bypass graft x 3 (Acute) PAYNE (dyspnea on exertion) (Acute) B12 deficiency Morbid obesity with BMI of 50.0-59.9, adult Type 2 diabetes mellitus Hyperlipidemia NSTEMI (non-ST elevated myocardial infarction) Benign essential hypertension Atherogenic dyslipidemia Elevated troponin I level (Acute) Fatigue Chest pain, rule out acute myocardial infarction Heart murmur (Acute) Chest pain, exertional (Acute) Medical History BPH (benign prostatic hyperplasia) Hypertension Diabetes Social History Smoking Status: Never smoker Second Hand Exposure: No; Do You Dip or Chew Tobacco: No; Hx Alcohol Use: Yes Alcohol type: beer Hx Substance Use: No Preferred Language: Kuwaiti Communication Ability: Effective [employer] 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 Supervisor Required: No Beliefs That Will Affect Care: None Current Living Situation: Spouse Feels Safe at Home: Yes Assistive Devices: None Allergies Allergies Allergy/AdvReac Type Severity Reaction Status Date / Time levofloxacin [From Levaquin] Allergy Severe Anaphylaxis Unverified 07/04/24 08:00 Penicillins Allergy Unknown Unknown Unverified 07/04/24 07:58 Sulfa (Sulfonamide Allergy Unknown Unknown Unverified 07/04/24 07:58 Antibiotics) Qawjusc-PSP-LyZ Reductase AdvReac Verified 07/04/24 07:58 Inhibitor Home Meds Home Medications Medication Instructions Recorded Confirmed clotrimazole-betamethasone 1 1 applic topical BID 07/03/24 07/03/24 %-0.05 % topical cream irbesartan 150 mg tablet 150 mg PO QAM 07/03/24 07/03/24 tamsulosin 0.4 mg capsule 0.4 mg PO QAM 07/03/24 07/03/24 Previous Rx's Medication Instructions Recorded aspirin 81 mg tablet,delayed 81 mg PO QAM #1 tab 07/05/24 release bumetanide 1 mg tablet 1 mg PO QAM #1 tab 07/05/24 carvedilol 12.5 mg tablet 12.5 mg PO BIDM #1 tab 07/05/24 vitamin B complex (Vitamins B 1 cap PO QAM #1 cap 07/05/24 Complex capsule) Results & Data (ED) Vital Signs Vital Signs - 24 hr 08/19/24 17:09 08/19/24 18:53 08/19/24 19:51 Temperature 36.5 C Temperature Source Temporal Artery Scan Pulse Rate 73 89 Pulse Rate [Apical] Respiratory Rate 18 Respiratory Effort / Characteristics Non-Labored Spontaneous Respiratory Depth Normal Respiratory Pattern Blood Pressure 115/80 Blood Pressure [Left Arm] Blood Pressure Mean 91 Blood Pressure Mean [Left Arm] Blood Pressure Position [Left Arm] Pulse Oximetry 94 94 Oxygen Delivery Method Room Air Room Air Oxygen Flow Rate Sepsis Recent Fever Within 48 Hours No Sepsis New/Unexplained Change in Mental Status No Sepsis Action Taken by Nursing No Action Required 08/19/24 19:51 08/19/24 19:51 08/19/24 20:00 Temperature Temperature Source Pulse Rate 85 Pulse Rate [Apical] 94 H Respiratory Rate 22 21 Respiratory Effort / Characteristics Non-Labored Spontaneous Respiratory Depth Shallow Respiratory Pattern Regular Blood Pressure 177/135 H Blood Pressure [Left Arm] 181/115 H Blood Pressure Mean 149 Blood Pressure Mean [Left Arm] 137 Blood Pressure Position [Left Arm] Pulse Oximetry 94 94 95 Oxygen Delivery Method Room Air Room Air Room Air Oxygen Flow Rate Sepsis Recent Fever Within 48 Hours Sepsis New/Unexplained Change in Mental Status Sepsis Action Taken by Nursing 08/19/24 20:14 08/19/24 20:36 08/19/24 21:09 Temperature Temperature Source Pulse Rate Pulse Rate [Apical] 93 H 94 H 87 Respiratory Rate 18 15 16 Respiratory Effort / Characteristics Non-Labored Spontaneous Non-Labored SOB on Exertion Non-Labored Spontaneous Respiratory Depth Normal Normal Normal Respiratory Pattern Regular Regular Blood Pressure Blood Pressure [Left Arm] 116/74 180/97 H 175/84 H Blood Pressure Mean Blood Pressure Mean [Left Arm] 88 124 114 Blood Pressure Position [Left Arm] Semi-fowlers Sitting Semi-fowlers Pulse Oximetry 95 93 99 Oxygen Delivery Method Room Air Nasal Cannula Nasal Cannula Oxygen Flow Rate 2 2 Sepsis Recent Fever Within 48 Hours Sepsis New/Unexplained Change in Mental Status Sepsis Action Taken by Nursing Laboratory Data 08/19/24 17:46 08/19/24 17:46 Lab Results 08/19/24 08/19/24 08/19/24 Range/Units 17:46 18:38 20:34 WBC 7.00 (4.8-10.8) K/ul RBC 4.55 L (4.70-6.10) M/uL Hgb 12.7 L (14.0-18.0) g/dl Hct 38.5 L (42.0-52.0) % MCV 84.6 (80.0-100.0) fL MCH 27.9 (25.0-34.0) pg MCHC 33.0 (32.0-36.0) g/dL RDW Std Deviation 44.9 (36.4-46.3) fL RDW Coeff of Malik 14.6 H (11.5-14.5) % Plt Count 373 (130-400) K/uL MPV 9.1 L (9.4-12.4) fL Immature Gran % (Auto) 0.3 % Neut % (Auto) 62.5 % Lymph % (Auto) 26.3 % Dyer % (Auto) 8.7 % Eos % (Auto) 1.3 % Baso % (Auto) 0.9 % Neut # (Auto) 4.38 (1.40-6.50) K/uL Lymph # (Auto) 1.84 (1.20-3.40) K/uL Dyer # (Auto) 0.61 H (0.11-0.59) K/uL Eos # (Auto) 0.09 (0.00-0.50) K/uL Baso # (Auto) 0.06 (0.00-0.20) K/uL Immature Gran # (Auto) 0.02 (0.01-0.20) K/uL PT 12.0 (9.0-12.0) Seconds INR 1.1 (0.9-1.1) Sodium 136 (136-145) mmol/L Potassium 3.5 (3.5-5.1) mmol/L Chloride 91 L (98-107) mmol/L Carbon Dioxide 35 H (21-32) mmol/L Anion Gap 10 (3-11) BUN 13 (6-23) mg/dl Creatinine 1.01 (0.6-1.4) mg/dl Est Cr Clr Drug Dosing Not Reportable eGFR 81.51 BUN/Creatinine Ratio 12.9 (10-20) Glucose 123 H (70-99(Fasting)) mg/dl Calcium 9.2 (8.6-10.3) mg/dl Magnesium 1.2 L (1.7-2.4) mg/dl Total Bilirubin 1.3 H (0.2-1.0) mg/dl AST 19 (13-39) U/L ALT 8 (7-52) U/L Alkaline Phosphatase 67 (34-104) U/L Troponin I High Sens 24.8 H (0-20) pg/ml B-Natriuretic Peptide 125 H (0-100) pg/ml Total Protein 6.4 (6.0-8.3) gm/dl Albumin 3.5 (3.4-5.0) gm/dl Globulin 2.9 (2.5-4.0) gm/dl Albumin/Globulin Ratio 1.2 (0.9-2) TSH 0.568 (0.300-4.500) uIu/ml Urine Color Yellow Urine Appearance Clear (Clear) Urine pH 5.0 (4.5-7.5) Ur Specific [place] > 1.045 H (1.000-1.030) Urine Protein Negative (Negative) Urine Glucose (UA) Negative (Negative) Urine Ketones Trace H (Negative) Urine Blood Negative (Negative) Urine Nitrite Negative (Negative) Urine Bilirubin Negative (Negative) Urine Urobilinogen Negative (Negative) Ur Leukocyte Esterase Negative (Negative) Adenovirus (PCR) Not Detected (NotDetected) B. pertussis DNA (PCR) Not Detected (NotDetected) B.parapertussis DNA PCR Not Detected (NotDetected) C. pneumoniae DNA (PCR) Not Detected (NotDetected) Coronavirus OC43 (PCR) Not Detected (NotDetected) Coronavirus HKU1 (PCR) Not Detected (NotDetected) Coronavirus 229E (PCR) Not Detected (NotDetected) SARS-CoV-2 (PCR) Not Detected (NotDetected) Coronavirus NL63 (PCR) Not Detected (NotDetected) Human Metapneumovir PCR Not Detected (NotDetected) Influenza Type A (PCR) Not Detected (NotDetected) Influenza Type B (PCR) Not Detected (NotDetected) M. pneumoniae (PCR) Not Detected (NotDetected) Parainfluenza 1 (PCR) Not Detected (NotDetected) Parainfluenza 2 (PCR) Not Detected (NotDetected) Parainfluenza 3 (PCR) Not Detected (NotDetected) Parainfluenza 4 (PCR) Not Detected (NotDetected) RSV (PCR) Not Detected (NotDetected) Entero/Rhino (PCR) Not Detected (NotDetected) 08/19/24 Range/Units 20:39 WBC (4.8-10.8) K/ul RBC (4.70-6.10) M/uL Hgb (14.0-18.0) g/dl Hct (42.0-52.0) % MCV (80.0-100.0) fL MCH (25.0-34.0) pg MCHC (32.0-36.0) g/dL RDW Std Deviation (36.4-46.3) fL RDW Coeff of Malik (11.5-14.5) % Plt Count (130-400) K/uL MPV (9.4-12.4) fL Immature Gran % (Auto) % Neut % (Auto) % Lymph % (Auto) % Dyer % (Auto) % Eos % (Auto) % Baso % (Auto) % Neut # (Auto) (1.40-6.50) K/uL Lymph # (Auto) (1.20-3.40) K/uL Dyer # (Auto) (0.11-0.59) K/uL Eos # (Auto) (0.00-0.50) K/uL Baso # (Auto) (0.00-0.20) K/uL Immature Gran # (Auto) (0.01-0.20) K/uL PT (9.0-12.0) Seconds INR (0.9-1.1) Sodium (136-145) mmol/L Potassium (3.5-5.1) mmol/L Chloride (98-107) mmol/L Carbon Dioxide (21-32) mmol/L Anion Gap (3-11) BUN (6-23) mg/dl Creatinine (0.6-1.4) mg/dl Est Cr Clr Drug Dosing eGFR BUN/Creatinine Ratio (10-20) Glucose (70-99(Fasting)) mg/dl Calcium (8.6-10.3) mg/dl Magnesium (1.7-2.4) mg/dl Total Bilirubin (0.2-1.0) mg/dl AST (13-39) U/L ALT (7-52) U/L Alkaline Phosphatase (34-104) U/L Troponin I High Sens 24.2 H (0-20) pg/ml B-Natriuretic Peptide (0-100) pg/ml Total Protein (6.0-8.3) gm/dl Albumin (3.4-5.0) gm/dl Globulin (2.5-4.0) gm/dl Albumin/Globulin Ratio (0.9-2) TSH (0.300-4.500) uIu/ml Urine Color Urine Appearance (Clear) Urine pH (4.5-7.5) Ur Specific [place] (1.000-1.030) Urine Protein (Negative) Urine Glucose (UA) (Negative) Urine Ketones (Negative) Urine Blood (Negative) Urine Nitrite (Negative) Urine Bilirubin (Negative) Urine Urobilinogen (Negative) Ur Leukocyte Esterase (Negative) Adenovirus (PCR) (NotDetected) B. pertussis DNA (PCR) (NotDetected) B.parapertussis DNA PCR (NotDetected) C. pneumoniae DNA (PCR) (NotDetected) Coronavirus OC43 (PCR) (NotDetected) Coronavirus HKU1 (PCR) (NotDetected) Coronavirus 229E (PCR) (NotDetected) SARS-CoV-2 (PCR) (NotDetected) Coronavirus NL63 (PCR) (NotDetected) Human Metapneumovir PCR (NotDetected) Influenza Type A (PCR) (NotDetected) Influenza Type B (PCR) (NotDetected) M. pneumoniae (PCR) (NotDetected) Parainfluenza 1 (PCR) (NotDetected) Parainfluenza 2 (PCR) (NotDetected) Parainfluenza 3 (PCR) (NotDetected) Parainfluenza 4 (PCR) (NotDetected) RSV (PCR) (NotDetected) Entero/Rhino (PCR) (NotDetected) Administered Medications Discontinued Medications Ioversol (Optiray 320 125ml) 119 ml IV ONCE ONE Stop: 08/19/24 19:38 Last Admin: 08/19/24 19:44 Dose: 119 ml Documented By: [employer] [facility] Data Radiologist's Impression: Chest X-Ray 08/19/24 17:13 INDICATION: Shortness of breath. TECHNIQUE: Frontal radiograph of the chest. COMPARISON: Radiograph from 07/03/2024. FINDINGS: Cardiomegaly. Mild pulmonary vascular congestion. Large left pleural effusion with atelectasis/airspace disease. Subsegmental atelectasis in the right lung base. No pneumothorax. No acute fracture. IMPRESSION: Mild pulmonary vascular congestion. Large left pleural effusion with atelectasis/airspace disease. Electronically signed by Savage Eduardo 08-19-2024 6:50 PM Chest CTA 08/19/24 18:38 Exam(s): CTA CHEST IV Amt: 119 cc opti 320 EXAM: CT Angiography Chest With Intravenous Contrast CLINICAL HISTORY: Reason for exam: PE, weak, recent CABG, L lung hazy on XR. TECHNIQUE: Axial computed tomographic angiography images of the chest with intravenous contrast. CTDI is 28.14 mGy and DLP is 873.63 mGy-cm. Automated exposure control was utilized for the study. A dose lowering technique was utilized adhering to the principles of ALARA. MIP reconstructed images were created and reviewed. COMPARISON: July 04, 2024 CT chest and chest x-ray from August 19, 2024 FINDINGS: Pulmonary arteries: The pulmonary arterial tree is well opacified with contrast no pulmonary embolism is identified. Aorta: The thoracic aorta is nondilated. There is no aneurysm or dissection. Lungs: Atelectasis of the left lower lobe, lingula, and a portion of the left upper lobe. There is a small amount of central edema on the right. No mass. Pleural space: There is a large left pleural effusion filling two thirds of the left hemithorax. No pneumothorax. Heart: Surgical changes from recent CABG. There is severe coronary calcification. No pericardial effusion. No cardiomegaly. No evidence of RV dysfunction. Bones/joints: Mild multilevel degenerative changes throughout the spine. No acute fracture or destructive bone lesion is seen. No dislocation. Soft tissues: Unremarkable. Lymph nodes: Unremarkable. No enlarged lymph nodes. IMPRESSION: 1. Atelectasis of the left lower lobe, lingula, and a portion of the left upper lobe. There is a small amount of central edema on the right. 2. There is a large left pleural effusion filling two thirds of the left hemithorax. 3. The pulmonary arterial tree is well opacified with contrast no pulmonary embolism is identified. 4. The thoracic aorta is nondilated. There is no aneurysm or dissection. 5. Surgical changes from recent CABG. There is severe coronary calcification. No pericardial effusion. Electronically signed by: Juan Rondon MD 08/19/24 20:17 PM Discharge Plan Visit Data Chief Complaint: Weakness Stated Complaint: WEAKNESS, DEHYDRATION S/P CARDIAC SURGERY ED Provider: Juan Mckinney Discharge Problem: PAYNE (dyspnea on exertion), History of coronary artery bypass graft x 3, Pleural effusion on left, Weakness Patient Disposition: Being Evaluated by Hospitalist Forms Stand Alone Forms: [facility] [place] Prescriptions Prescriptions: No Action tamsulosin 0.4 mg capsule 0.4 mg PO QAM clotrimazole-betamethasone 1-0.05 % cream 1 applic TOPICAL BID irbesartan 150 mg tablet 150 mg PO QAM carvedilol 12.5 mg Tablet 12.5 mg PO BIDM Qty: 1 0RF aspirin 81 mg Tablet,Delayed Release (Dr/Ec) 81 mg PO QAM Qty: 1 0RF bumetanide 1 mg Tablet 1 mg PO QAM Qty: 1 0RF vitamin B complex [Vitamins B Complex] Capsule 1 cap PO QAM Qty: 1 0RF Referrals Referrals: Zach Pollock MD [Primary Care Provider] -
[2024-08-19 18:39] LABS: INR 1.1 (0.9-1.1)
[2024-08-19 18:43] LABS: Thyroid Stimulating Hormone 0.568 uIu/ml (0.300-4.500)
--- NOTE | 2024-08-19 18:50 | XRay Report ---
INDICATION: Shortness of breath. TECHNIQUE: Frontal radiograph of the chest. COMPARISON: Radiograph from 07/03/2024. FINDINGS: Cardiomegaly. Mild pulmonary vascular congestion. Large left pleural effusion with atelectasis/airspace disease. Subsegmental atelectasis in the right lung base. No pneumothorax. No acute fracture. IMPRESSION: Mild pulmonary vascular congestion. Large left pleural effusion with atelectasis/airspace disease. Electronically signed by Savage Eduardo 08-19-2024 6:50 PM
[2024-08-19] MEDS: OPTIRAY 320 125ml IV ONE (19:44)
[2024-08-19 19:45] LABS: Adenovirus PCR Not Detected (NotDetected); Bordetella parapertussis PCR Not Detected (NotDetected); Bordetella pertussis PCR Not Detected (NotDetected); Chlamydia pneumoniae PCR Not Detected (NotDetected); Coronavirus 229E PCR Not Detected (NotDetected); Coronavirus CoV-2 (COVID19)PCR Not Detected (NotDetected); Coronavirus HKU1 PCR Not Detected (NotDetected); Coronavirus NL63 PCR Not Detected (NotDetected); Coronavirus OC43PCR Not Detected (NotDetected); Human Metapneumovirus PCR Not Detected (NotDetected); Influenza A PCR Not Detected (NotDetected); Influenza B PCR Not Detected (NotDetected); Mycoplasma pneumoniae PCR Not Detected (NotDetected); Parainfluenza Virus 1 PCR Not Detected (NotDetected); Parainfluenza Virus 2 PCR Not Detected (NotDetected); Parainfluenza Virus 3 PCR Not Detected (NotDetected); Parainfluenza Virus 4 PCR Not Detected (NotDetected); Respiratory Syncytial VirusPCR Not Detected (NotDetected); Rhinovirus/Enterovirus PCR Not Detected (NotDetected)
--- NOTE | 2024-08-19 20:17 | CT Scan Report ---
Exam(s): CTA CHEST IV Amt: 119 cc opti 320 EXAM: CT Angiography Chest With Intravenous Contrast CLINICAL HISTORY: Reason for exam: PE, weak, recent CABG, L lung hazy on XR. TECHNIQUE: Axial computed tomographic angiography images of the chest with intravenous contrast. CTDI is 28.14 mGy and DLP is 873.63 mGy-cm. Automated exposure control was utilized for the study. A dose lowering technique was utilized adhering to the principles of ALARA. MIP reconstructed images were created and reviewed. COMPARISON: July 04, 2024 CT chest and chest x-ray from August 19, 2024 FINDINGS: Pulmonary arteries: The pulmonary arterial tree is well opacified with contrast no pulmonary embolism is identified. Aorta: The thoracic aorta is nondilated. There is no aneurysm or dissection. Lungs: Atelectasis of the left lower lobe, lingula, and a portion of the left upper lobe. There is a small amount of central edema on the right. No mass. Pleural space: There is a large left pleural effusion filling two thirds of the left hemithorax. No pneumothorax. Heart: Surgical changes from recent CABG. There is severe coronary calcification. No pericardial effusion. No cardiomegaly. No evidence of RV dysfunction. Bones/joints: Mild multilevel degenerative changes throughout the spine. No acute fracture or destructive bone lesion is seen. No dislocation. Soft tissues: Unremarkable. Lymph nodes: Unremarkable. No enlarged lymph nodes. IMPRESSION: 1. Atelectasis of the left lower lobe, lingula, and a portion of the left upper lobe. There is a small amount of central edema on the right. 2. There is a large left pleural effusion filling two thirds of the left hemithorax. 3. The pulmonary arterial tree is well opacified with contrast no pulmonary embolism is identified. 4. The thoracic aorta is nondilated. There is no aneurysm or dissection. 5. Surgical changes from recent CABG. There is severe coronary calcification. No pericardial effusion. Electronically signed by: Juan Rondon MD 08/19/24 20:17 PM
[2024-08-19 21:03] LABS: Appearance Urine Clear (Clear); Bilirubin Urine Negative (Negative); Blood Urine Negative (Negative); Color Urine Yellow; Glucose Urine UA Negative (Negative); Ketones Urine Trace (Negative); Leukocyte Esterase Urine Negative (Negative); Nitrite Urine Negative (Negative); Protein Urine Negative (Negative); Specific Gravity Urine > 1.045 (1.000-1.030); Urobilinogen Urine Negative (Negative)
[2024-08-19] MEDS: MAGNESIUM SULFATE / D5W 1 GM/100 ML BAG IV SCH (22:09)
--- NOTE | 2024-08-19 22:16 | History & Physical Report ---
Date of Service August 19, 2024 Assessment & Plan (1) Pleural effusion on left: Plan: 69-year-old male with PMH of morbid obesity, hyperlipidemia, DM2, and CAD, hx of CABG x3 here due to worsening dyspnea and weakness on legs found with left pleural effusion - Admit to PCU - Chest CT scan shows per radiology report without evidence of PE or pericardial effusion. Large left pleural effusion feeling approximate two thirds left hemithorax. Atelectasis of the left lung with a small amount of central edema on the right. No pneumothorax. - [facility] (Dr. Mansfield) reached out by ED provider: Ok to drain here - Pulmonology consulted: AM ultrasound thoracentesis - Respiratory viral panel here is negative. - NPO at midnight - Oxygen as needed CBC, INR AM (2) History of coronary artery bypass graft x 3: Plan: [facility] admission for CABGx3 CABG x3 (CASEY-LAD, SVG-OM2, SVG-Ramus) by Dana Luna on 07/09/2024. GAYLE 07/09 Normal LV size and systolic function. LVEF 60-65%. Grade 1 diastolic dysfunction Mildly dilated RV with normal RV systolic function. Mild to moderate Aortic stenosis (3) Type 2 diabetes mellitus: Plan: Hold home pioglitazone Novolog scale (4) Hyperlipidemia: Plan: Continue Ezetimibe (5) Benign essential hypertension: Plan: Continue home metoprolol Patient take LAsix as needed for leg swelling - hold (6) Hypomagnesemia: Plan: Replaced in ED Mag AM level Plan FEN: NPO Code status:Full code DVT ppx: SCD, chemical hold due for procedure am Dispo: PCU History of Present Illness Chief Complaint: Patient is a 69 y/o male with PMh of diabetes, htn and CAD with recent CABG x3 that presented today due to worsening dyspnea and leg weakness. He states having worsening leg Edema which he took his lasix PRN. He denied any chest pain. He was recently admitted on [facility] for [place] last month. He was feeling well until the last 4 days when he started to feel more tired and SOB. Worsen with ambulation.He refers he had been doing his spirometer at home, but refers recently being more difficult. Denied any fevers or chills, cough, nausea, abdominal pain, or vomiting. He refers voiding ok. [facility] [facility] record reviewed. Had CABG x3 (CASEY-LAD, SVG-OM2, SVG-Ramus) by Dana Luna on 07/09/2024. follow with Cardiology Surgeon outpatient. Primary Care Provider: Zach Pollock MD Allergies Allergy/AdvReac Type Severity Reaction Status Date / Time levofloxacin [From Levaquin] Allergy Severe Anaphylaxis Unverified 07/04/24 08:00 Penicillins Allergy Unknown Unknown Unverified 07/04/24 07:58 Sulfa (Sulfonamide Allergy Unknown Unknown Unverified 07/04/24 07:58 Antibiotics) [id number] Reductase AdvReac Verified 07/04/24 07:58 Inhibitor Home Medications Medication Instructions Recorded Confirmed Type clotrimazole-betamethasone 1 1 applic topical BID 07/03/24 08/20/24 History %-0.05 % topical cream tamsulosin 0.4 mg capsule 0.4 mg PO QAM 07/03/24 08/20/24 History aspirin 81 mg tablet,delayed 81 mg PO QAM #1 tab 07/05/24 08/20/24 Rx release clopidogrel 75 mg tablet 75 mg PO QAM 08/20/24 08/20/24 History ezetimibe 10 mg tablet 10 mg PO DAILY 08/20/24 08/20/24 History furosemide 40 mg tablet (Lasix) 40 mg PO QAM #14 tabs 08/20/24 Rx metoprolol tartrate 50 mg tablet 50 mg PO BID 08/20/24 08/20/24 History pantoprazole 40 mg tablet,delayed 40 mg PO DAILY 08/20/24 08/20/24 History release (Protonix) pioglitazone 45 mg tablet 45 mg PO DAILY 08/20/24 08/20/24 History potassium chloride 10 mEq 10 meq PO DAILY #14 caps 08/20/24 Rx capsule,extended release Past Med/Surg History Problem List (Updated 08/20/24 @ 16:08 by Ros Yates MD) CAD (coronary artery disease), [place] coronary artery Ex-smoker Shortness of breath Acute respiratory failure with hypoxia Hypomagnesemia Weakness (Acute) Pleural effusion on left (Acute) History of coronary artery bypass graft x 3 (Acute) PAYNE (dyspnea on exertion) (Acute) B12 deficiency Morbid obesity with BMI of 50.0-59.9, adult Type 2 diabetes mellitus Hyperlipidemia NSTEMI (non-ST elevated myocardial infarction) Benign essential hypertension Atherogenic dyslipidemia Elevated troponin I level (Acute) Fatigue Chest pain, rule out acute myocardial infarction Heart murmur (Acute) Chest pain, exertional (Acute) Medical History (Updated 08/20/24 @ 16:08 by Ros Yates MD) Aortic stenosis, moderate BPH (benign prostatic hyperplasia) Hypertension Diabetes Surgical History (Updated 08/20/24 @ 16:08 by Ros Yates MD) Hx of CABG Social History Smoking Status: Former smoker Second Hand Exposure: No; Do You Dip or Chew Tobacco: No; Hx Alcohol Use: No Hx Substance Use: No Preferred Language: Maltese Communication Ability: Effective Mortgage Loan Specialist Required: No Beliefs That Will Affect Care: None Current Living Situation: Spouse Feels Safe at Home: Yes Assistive Devices: Glasses Review of Systems Review of Systems: as per HPI Physical Exam Constitutional: well developed, well nourished and + obese; no acute distress Eyes: PERRL, conjunctivae normal, anicteric sclerae Respiratory: normal respiratory effort; no respiratory distress, no labored breathing, does not use accessory muscles and no cough Auscultation: + breath sounds absent (Left lower lung) Cardiovascular: Rate/Rhythm: regular rate and regular rhythm Heart Sounds: normal S1 and normal S2 Extremities: + edema Gastrointestinal (Abdomen): normal bowel sounds, soft, nontender, no hepatosplenomegaly Results & Data Results & Data Vital Signs (Past 12 Hours) Vital Signs Temp Pulse Pulse Resp BP BP Pulse Ox 08/19/24 22:00 89 25 H 132/78 99 08/19/24 21:09 87 16 175/84 H 99 08/19/24 20:36 94 H 15 180/97 H 93 08/19/24 20:14 93 H 18 116/74 95 08/19/24 20:00 85 21 177/135 H 95 08/19/24 19:51 94 08/19/24 19:51 94 H 22 181/115 H 94 08/19/24 19:51 94 08/19/24 18:53 89 08/19/24 17:09 36.5 C 73 18 115/80 94 O2 Del Method O2 Flow Rate 08/19/24 22:00 Nasal Cannula 1 08/19/24 21:09 Nasal Cannula 2 08/19/24 20:36 Nasal Cannula 2 08/19/24 20:14 Room Air 08/19/24 20:00 Room Air 08/19/24 19:51 Room Air 08/19/24 19:51 Room Air 08/19/24 19:51 Room Air 08/19/24 18:53 08/19/24 17:09 Room Air Supervising Physician Co-Signing Physician Notes Attending addendum: I have physically seen this patient, have supervised the medical residents activities, and agree with the H&P unless as otherwise noted. Assessment and Plan: The patient is a 69-year-old male with a past medical history including diabetes mellitus, hypertension, CAD, status post recent CABG x 3 at [facility], who is presents to the emergency department with worsening shortness of breath, lower extremity edema and dyspnea on exertion. #New large left pleural effusion- Chest x-ray and CT scan note negative PE or pericardial effusion. Large left pleural effusion occupying about two thirds of the left hemithorax. Atelectasis of the left lung with a small amount of central edema on the right. No pneumothorax. [facility] [place]. Mansfield feels patient can remain at [facility] for further treatment Emergency department discussed with pulmonology Dr. Bashir, who will perform ultrasound-guided thoracentesis in the a.m. N.p.o. after midnight Serial laboratories in the a.m. History of CABG x 3 at [facility]/hypertension The patient will be admitted to telemetry for serial cardiac enzymes, serial EKG's, cardiac rhythm monitoring serial laboratories Continue metoprolol Cardiology consult if needed Diabetes mellitus- Hold pioglitazone Placed Accu-Cheks with NovoLog SSI Hypomagnesemia- Magnesium 1.2 on admission Receiving IV replacement, recheck laboratories in the a.m. Chronic medical issues: Hyperlipidemia-Continue outpatient meds: Zetia BPH with LUTS-continue tamsulosin Resident Activity Tracking Resident Involvement: Resident Care Provided Care Provided: Adult Hospital Medicine
[2024-08-19] MEDS ORDERED: ONDANSETRON INJ 2 MG/ML 2 ML VIAL IV PRN (23:46)
[2024-08-19] MEDS ORDERED: ACETAMINOPHEN 325 MG TAB PO PRN (23:46)
[2024-08-19] MEDS ORDERED: GLUCOSE 40% GEL 15 GM TUBE PO PRN (23:46)
[2024-08-19] MEDS ORDERED: GLUCOSE 10 TAB/TUBE PO PRN (23:46)
[2024-08-19] MEDS ORDERED: GLUCAGON FOR INJ 1 MG VIAL SQ PRN (23:46)
[2024-08-19] MEDS ORDERED: ALUMINUM/MAGNESIUM SUSP 30 ML UDC PO PRN (23:46)
[2024-08-19] MEDS ORDERED: POLYETHYLENE (MIRALAX) 17 GM PACK PO PRN (23:46)
[2024-08-19] MEDS ORDERED: CARBOHYDRATES FOR HYPOGLYCEMIA PO PRN (23:46)
[2024-08-19] MEDS ORDERED: DEXTROSE 50% 50 ML SYRINGE IV PRN (23:46)
[2024-08-20] MEDS: METOPROLOL TARTRATE 50 MG TAB PO SCH (00:34)
--- OUTSIDE RECORDS SUMMARY | 2024-08-20 04:44 | External Medical Summary | Continuity of Care Document ---
Author Name Unknown Organization [facility] Address [address] [place] [address] [phone] Care Team Providers Care Human Resources Hr Generalist Name Role Phone Zach Villarreal Primary Care Physician [phone] Encounter [facility] [id number] Date(s): 07/06/24 - 07/23/[address] [id number] [phone] Encounter Diagnosis History of morbid obesity(Discharge Diagnosis) - 07/07/24 Coronary artery disease(Discharge Diagnosis) - 07/06/24 Hypotension(Discharge Diagnosis) - 07/10/24 S/P CABG (coronary artery bypass graft)(Discharge Diagnosis) - 07/23/24 Discharge Disposition: Home w/ Home Health Care Attending Physician: MD Cortez Kentaro Admitting Physician: MD Cortez Kentaro Referring Physician: MD Altman James Anthony Allergies, Adverse Reactions, Alerts Substance Criticality Severity Reaction Reaction Severity Status penicillin unknown Active sulfa drugs unknown Active Statins (HMG-CoA reductase inhibitors) unable to walk muscles cramping Active levoFLOXacin tongue swelling anaphylaxis Active Functional Status 07/23/24 Neurological Symptoms Numbness ADLs Minimal assistance Facial Symmetry Symmetric Gait Steady Swallowing Difficulty None Level of Consciousness Neuro Alert Hallucinations Present None History of Fall in Last 3 Months Hsieh N o Presence of Secondary Diagnosis Hsieh Ye s Use of Ambulatory Aid Hsieh Crutches/can e/walker IV/Heparin Lock Fall Risk Hsieh Yes Gait/Transferring Fall Risk Hsieh Normal /bedrest/immobile Mental Status Fall Risk Hsieh Oriented t o own ability Hsieh Fall Risk Score 50 Hsieh Fall Risk High risk Speech Pattern Clear Medications aspirin 81 mg oral delayed release tablet Start: 07/23/24 9:05:00 AM EST, 1 tab, PO, Daily, Disp# 30 tab, Refills: 1, Pharmacy: [facility] [place] Start Date: 07/23/24 Stop Date: 09/21/24 Status: Ordered betamethasone-clotrimazole 0.05%-1% topical cream Start: 07/06/24 3:59:00 AM EST, 1 appl, topical, bid Start Date: 07/06/24 Status: Ordered cyclobenzaprine 5 mg oral tablet Start: 07/23/24 9:06:00 AM EST, 1 tab, PO, tid, Disp# 9 tab, Refills: 0, PRN: spasms, Pharmacy: [facility] [place] Start Date: 07/23/24 Stop Date: 07/26/24 Status: Ordered HumaLOG Sliding Scale Low Dose Range: SSI, injection, subQ, 07/21/24 4:30:00 PM EST, 07/21/24 4:21:42 PM EST, Estimated correction need for patients using total insulin daily dose between 31 and 60 units., 07/11/24 5:33:00 EST Start Date: 07/21/24 Stop Date: 07/21/24 Status: Completed HumaLOG Sliding Scale Low Dose Range: SSI, injection, subQ, 07/21/24 10:00:00 PM EST, 07/21/24 9:30:42 PM EST, Estimated correction need for patients using total insulin daily dose between 31 and 60 units., 07/11/24 5:33:00 EST Start Date: 07/21/24 Stop Date: 07/21/24 Status: Completed HumaLOG Sliding Scale Low Dose Range: SSI, injection, subQ, 07/22/24 7:30:00 AM EST, 07/22/24 6:40:18 AM EST, Estimated correction need for patients using total insulin daily dose between 31 and 60 units., 07/11/24 5:33:00 EST Start Date: 07/22/24 Stop Date: 07/22/24 Status: Completed metoprolol tartrate 50 mg, tablet, PO, 07/23/24 9:00:00 AM EST, 07/23/24 10:18:51 AM EST, immediate release product, 07/12/24 12:33:00 EST Start Date: 07/23/24 Stop Date: 07/23/24 Status: Completed metoprolol tartrate 50 mg oral tablet Start: 07/23/24 9:05:00 AM EST, 1 tab, PO, bid, Disp# 60 tab, Refills: 1, Pharmacy: [facility] Start Date: 07/23/24 Stop Date: 09/21/24 Status: Ordered montelukast 10 mg oral tablet Start: 07/06/24 3:56:00 AM EST, 1 tab, PO, qPM Start Date: 07/06/24 Status: Ordered pioglitazone 45 mg oral tablet Start: 07/06/24 3:58:00 AM EST, 1 tab, PO, Daily Start Date: 07/06/24 Status: Ordered Plavix 75 mg oral tablet Start: 07/23/24 9:05:00 AM EST, 1 tab, PO, Daily, Disp# 30 tab, Refills: 1, Pharmacy: [facility] Start Date: 07/23/24 Stop Date: 09/21/24 Status: Ordered Protonix 40 mg oral delayed release tablet Start: 07/23/24 9:05:00 AM EST, 1 tab, PO, q24h, Disp# 30 tab, Refills: 0, Pharmacy: [facility] Start Date: 07/23/24 Stop Date: 08/22/24 Status: Ordered tamsulosin Start: 07/06/24 3:57:00 AM EST, 0.4 mg =, PO, Daily Start Date: 07/06/24 Status: Ordered Zetia 10 mg oral tablet Start: 07/23/24 9:04:00 AM EST, 1 tab, PO, Daily, Disp# 30 tab, Refills: 1, Pharmacy: [facility] Start Date: 07/23/24 Stop Date: 09/21/24 Status: Ordered Mental Status 07/08/24 Communication Barrier Present Yes Primary Language Romanian Problem List Condition Confirmation Course Effective Dates Status Health St atus Informant Vitamin B 12 deficiency Confirmed Active History of BPH Confirmed Active Hyperlipemia Confirmed Active Hypertension Confirmed Active Kidney stones Confirmed Active Morbid obesity Confirmed Active Diabetes type 2 Confirmed Active Diagnosis Diagnosis Type Effective Dates Health Status Clinical Service Informant Coronary artery disease Discharge Diagnosis 07/06/24 Non-Specified History of morbid obesity Discharge Diagnosis 07/07/24 Non-Specified Hypotension Discharge Diagnosis 07/10/24 Non-Specified S/P CABG (coronary artery bypass graft) Discharge Diagnosis 07/23/24 Non-Specified Procedures Procedure Date Related Diagnosis Body Site Status CYSTOSCOPY W/BIOPSY(S) 1995 Co mpleted Results Laboratory List Name Date Glucose Meter (GLUCOSE METER) 07/23/24 Glucose Meter (GLUCOSE METER) 07/23/24 Calcium, Ionized (Ionized Calcium) 07/23 Complete Blood Count (CBC w Platelets) 1 Magnesium Level 07/23/24 Basic Metabolic Panel (BMP) 07/23/24 Glucose Meter (GLUCOSE METER) 07/22/24 Potassium Level (K Level) 07/22/24 Potassium Level (POTASSIUM) 07/22/24 Magnesium Level (Mg Level) 07/22/24 Calcium, Ionized (Ionized Calcium) 07/22 Complete Blood Count (CBC w Platelets) 1 Magnesium Level 07/22/24 Basic Metabolic Panel (BMP) 07/22/24 Calcium, Ionized (Ionized Calcium) 07/21 Complete Blood Count (CBC w Platelets) 1 09/21/23 Basic Metabolic Panel (BMP) 07/21/24 Blood Glucose Monitoring Nurse POC (Gluc ose Meter Nurse POC) 07/20/24 Blood Glucose Monitoring Nurse POC (Gluc ose Meter Nurse POC) 07/20/24 Blood Glucose Monitoring Nurse POC (Gluc ose Meter Nurse POC) 07/19/24 Potassium Level, Whole Blood (K Level, W hole Blood) 07/13/24 Potassium Level, Whole Blood (K Level, W hole Blood) 07/13/24 Nephrology Panel 07/12/24 Nephrology Panel 07/11/24 Nephrology Panel 07/11/24 Potassium Level, Whole Blood (K Level, W hole Blood) 07/10/24 Arterial Blood Gases w/ Hgb and O2 Sat ( ABGs, w/ Hgb and O2 Sat) 07/10/24 Arterial Blood Gases w/ Hgb and O2 Sat ( ABGs, w/ Hgb and O2 Sat) 07/10/24 Prothrombin Time w/ INR (Protime/INR) Arterial Blood Gases w/ Hgb and O2 Sat ( ABGs, w/ Hgb and O2 Sat) 07/09/24 Arterial Blood Gases w/ Hgb and O2 Sat ( ABGs, w/ Hgb and O2 Sat) 07/09/24 Arterial Blood Gases w/ Hgb and O2 Sat ( ABGs, w/ Hgb and O2 Sat) 07/09/24 Arterial Blood Gases w/ Hgb and O2 Sat ( ABGs, w/ Hgb and O2 Sat) 07/09/24 Fibrinogen 07/09/24 Partial Thromboplastin Time (PTT) Prothrombin Time w/ INR (PT/INR) 4 ACT, by IStat (OR) (ACT KAOLIN ISTAT (OR )) 07/09/24 IStat Testing, Arterial (OR) (I-STAT RAMOS EL,ART(OR)) 07/09/24 ACT, by IStat (OR) (ACT KAOLIN ISTAT (OR )) 07/09/24 IStat Testing, Arterial (OR) (I-STAT RAMOS EL,ART(OR)) 07/09/24 ACT, by IStat (OR) (ACT KAOLIN ISTAT (OR )) 07/09/24 IStat Testing, Arterial (OR) (I-STAT RAMOS EL,ART(OR)) 07/09/24 IStat Testing, Arterial (OR) (I-STAT RAMOS EL,ART(OR)) 07/09/24 IStat Testing, Venous (OR) (I-STAT PANEL ,LYDIA(OR)) 07/09/24 Blood Type/Antibody Screen (for possible transfusion) 07/08/24 Hemoglobin A1C 07/07/24 Urine Analysis w/ Reflexed Microscopic. 07/06/24 MRSA Surveillance (Nasal Swab) 07/06/24 Added on Lab order 07/06/24 Blood Type (ABO/Rh) (ABO/RH) 07/06/24 Partial Thromboplastin Time (PTT) Blood Type/Antibody Screen (for possible transfusion) 07/06/24 Hemoglobin A1C (Glycohemoglobin) 4 Lipid Profile 07/06/24 Prothrombin Time w/ INR (PT/INR) 4 Most recent to oldest [Reference Range]: 1 2 3 Hct, POC [38-51 %] 34 % *LOW* (07/09/24 1:52 PM) 26 % *LOW* (07/09/24 12:51 PM) 28 % *LOW* (07/09/24 12:23 PM) Hgb, POC [12-17 g/dL] 11.6 g/dL *LOW* (07/09/24 1:52 PM) 8.8 g/dL *LOW* (07/09/24 12:51 PM) 9.5 g/dL *LOW* (07/09/24 12:23 PM) ABO/Rh A POSITIVE (07/08/24 12:28 PM) A POSITIVE (07/06/24 4:34 AM) A POSITIVE (07/06/24 4:04 AM) Antibody Scr NEGATIVE (07/08/24 12:28 PM) NEGATIVE (07/06/24 4:04 AM) Expires at 0600AM on 07/11/2024 (07/08/24 12:28 PM) 07/09/2024 (07/06/24 4:04 AM) # Units 2 (07/08/24 12:28 PM) 2 (07/06/24 4:04 AM) R Number NRQ (07/08/24 12:28 PM) NRQ (07/06/24 4:04 AM) eGFR CKD-EPI [>60 mL/min/1.73 m2] 63 mL/min/1.73 m2 (07/23/24 8:04 AM) 48 mL/min/1.73 m2 *LOW* (07/22/24 8:37 AM) 53 mL/min/1.73 m2 *LOW* (07/21/24 7:27 AM) Base Deficit, POC [0-2 mmol/L] 1 mmol/L (07/09/24 1:52 PM) Blood Glucose [70-120 mg/dL] 165 mg/dL 1 *HI* (07/22/24 6:40 AM) 172 mg/dL 2 *HI* (07/21/24 9:30 PM) 139 mg/dL 3 *HI* (07/21/24 4:21 PM) Estimated Average Glucose 148 mg/dL (07/07/24 4:50 AM) 148 mg/dL (07/06/24 4:03 AM) Blood Glucose Ref Range [70 - 120 mg/dl] (07/20/24 9:30 PM) [70 - 120 mg/dl] (07/20/24 6:49 AM) [70 - 120 mg/dl] (07/19/24 9:22 PM) SaO2(a), POC [95-98 %] 100 % *HI* (07/09/24 1:52 PM) 100 % *HI* (07/09/24 12:51 PM) 100 % *HI* (07/09/24 12:23 PM) SaO2(v), POC [20-90 %] 90 % (07/09/24 11:13 AM) Request of Physician lipid profile (07/06/24 5:13 AM) Action Taken Test NOT added becau se: 4 (07/06/24 5:13 AM) FiO2 (a) 30 % (07/09/24 8:17 PM) 40 % (07/09/24 5:13 PM) 40 % (07/09/24 3:04 PM) O2 Flow (a) 2 L/min (07/10/24 8:07 AM) 2 L/min (07/10/24 3:14 AM) 2 L/min (07/09/24 11:54 PM) Non-HDL 195 mg/dL (07/06/24 4:03 AM) Estimated CrCl 88.05 mL/min (07/23/24 9:08 AM) 69.66 mL/min (07/22/24 9:36 AM) 76.44 mL/min (07/21/24 8:07 AM) MPV [9.0-12.2 fL] 8.6 fL *LOW* (07/23/24 8:04 AM) 8.4 fL *LOW* (07/22/24 8:37 AM) 8.6 fL *LOW* (07/21/24 7:27 AM) RDW [11.5-14.2 %] 13.9 % (07/23/24 8:04 AM) 13.9 % (07/22/24 8:37 AM) 14.2 % (07/21/24 7:27 AM) Base Deficit 3.8 mmol/L (07/09/24 11:54 PM) 4.5 mmol/L (07/09/24 8:17 PM) 4.1 mmol/L (07/09/24 5:13 PM) K, wb [3.5-5.0 mmol/L] 4.7 mmol/L (07/13/24 12:45 PM) 4.1 mmol/L (07/13/24 8:58 AM) 5.1 mmol/L *HI* (07/10/24 11:57 PM) B Comments Second specimen for ABRH confirmation requested from: LEXI DUENAS [id number] (07/06/24 4:04 AM) pH (a), POC [7.35-7.45 unit] 7.363 unit (07/09/24 1:52 PM) 7.416 unit (07/09/24 12:51 PM) 7.428 unit (07/09/24 12:23 PM) pCO2 (a), POC [35-45 mmHg] 43.8 mmHg (07/09/24 1:52 PM) 39.6 mmHg (07/09/24 12:51 PM) 41.6 mmHg (07/09/24 12:23 PM) pO2 (a), POC [80-105 mmHg] 282 mmHg *HI* (07/09/24 1:52 PM) 278 mmHg *HI* (07/09/24 12:51 PM) 285 mmHg *HI* (07/09/24 12:23 PM) Base XS(a), POC [0-3 mmol/L] 1 mmol/L (07/09/24 12:51 PM) 3 mmol/L (07/09/24 12:23 PM) 3 mmol/L (07/09/24 11:47 AM) HCO3(a), POC [22-26 mmol/L] 24.9 mmol/L (07/09/24 1:52 PM) 25.4 mmol/L (07/09/24 12:51 PM) 27.4 mmol/L *HI* (07/09/24 12:23 PM) Ion Ca(wb), POC [1.12-1.32 mmol/L] 1.11 mmol/L *LOW* (07/09/24 1:52 PM) 1.16 mmol/L (07/09/24 12:51 PM) 1.07 mmol/L *LOW* (07/09/24 12:23 PM) Na (wb), POC [138-146 mmol/L] 133 mmol/L *LOW* (07/09/24 1:52 PM) 134 mmol/L *LOW* (07/09/24 12:51 PM) 132 mmol/L *LOW* (07/09/24 12:23 PM) K (wb), POC [3.5-4.9 mmol/L] 4.1 mmol/L (07/09/24 1:52 PM) 3.6 mmol/L (07/09/24 12:51 PM) 4.3 mmol/L (07/09/24 12:23 PM) pH (v), POC [7.31-7.41 unit] 7.397 unit (07/09/24 11:13 AM) pCO2 (v), POC [41-51 mmHg] 45.9 mmHg (07/09/24 11:13 AM) pO2 (v), POC [15-60 mmHg] 59 mmHg (07/09/24 11:13 AM) Base XS(v), POC [0-3 mmol/L] 3 mmol/L (07/09/24 11:13 AM) HCO3(v), POC [23-28 mmol/L] 28.3 mmol/L *HI* (07/09/24 11:13 AM) Component RED CELLS (07/08/24 12:28 PM) RED CELLS (07/06/24 4:04 AM) MRSA Surveillance, on Admission [MSND] MRSA NOT detected (07/06/24 5:53 PM) Anion Gap [5-14 mmol/L] 19 mmol/L *HI* (07/23/24 8:04 AM) 15 mmol/L *HI* (07/22/24 8:37 AM) 16 mmol/L *HI* (07/21/24 7:27 AM) Hgb(a) [12.0-18.0 g/dL] 10.9 g/dL *LOW* (07/10/24 8:07 AM) 11.4 g/dL *LOW* (07/10/24 3:14 AM) 12.0 g/dL (07/09/24 11:54 PM) Alb [3.5-5.2 g/dL] 3.2 g/dL *LOW* (07/12/24 4:36 AM) 3.2 g/dL *LOW* (07/11/24 3:13 PM) 3.2 g/dL *LOW* (07/11/24 3:05 AM) Base XS(a) 1.2 mmol/L (07/10/24 8:07 AM) 0.4 mmol/L (07/10/24 3:14 AM) Bili (u) [NEG] NEGATIVE (07/06/24 8:41 PM) BUN [6-23 mg/dL] 23 mg/dL (07/23/24 8:04 AM) 28 mg/dL *HI* (07/22/24 8:37 AM) 31 mg/dL *HI* (07/21/24 7:27 AM) Ca [8.4-10.2 mg/dL] 9.7 mg/dL (07/23/24 8:04 AM) 9.3 mg/dL (07/22/24 8:37 AM) 9.4 mg/dL (07/21/24 7:27 AM) Ion Ca [1.15-1.27 mmol/L] 1.09 mmol/L *LOW* (07/23/24 8:04 AM) 1.09 mmol/L *LOW* (07/22/24 8:37 AM) 1.05 mmol/L *LOW* (07/21/24 7:27 AM) Chol/HDL 4 (07/06/24 4:03 AM) Chol [<200 mg/dL] 254 mg/dL *HI* (07/06/24 4:03 AM) Cl- [98-107 mmol/L] 85 mmol/L *LOW* (07/23/24 8:04 AM) 83 mmol/L *LOW* (07/22/24 8:37 AM) 85 mmol/L *LOW* (07/21/24 7:27 AM) HCO3 [22-29 mmol/L] 26 mmol/L (07/23/24 8:04 AM) 29 mmol/L (07/22/24 8:37 AM) 29 mmol/L (07/21/24 7:27 AM) Cret [0.70-1.30 mg/dL] 1.25 mg/dL (07/23/24 8:04 AM) 1.58 mg/dL *HI* (07/22/24 8:37 AM) 1.44 mg/dL *HI* (07/21/24 7:27 AM) ACT (Kaolin), POC [74-137 seconds] 112 seconds (07/09/24 1:53 PM) 112 seconds (07/09/24 12:52 PM) 487 seconds *HI* (07/09/24 12:27 PM) Fibr [208-435 mg/dL] 227 mg/dL (07/09/24 2:00 PM) HbA1c [<5.7 %] 6.8 % 5 *HI* (07/07/24 4:50 AM) 6.8 % 6 *HI* (07/06/24 4:03 AM) Glu [74-109 mg/dL] 155 mg/dL 7 *HI* (07/23/24 8:04 AM) 185 mg/dL 8 *HI* (07/22/24 8:37 AM) 170 mg/dL 9 *HI* (07/21/24 7:27 AM) Gluc Meter [74-109 mg/dL] 153 mg/dL *HI* (07/23/24 7:50 AM) 175 mg/dL *HI* (07/23/24 6:36 AM) 140 mg/dL *HI* (07/22/24 8:10 PM) HCO3(a) [21-28 mmol/L] 27.1 mmol/L (07/10/24 8:07 AM) 26.5 mmol/L (07/10/24 3:14 AM) 22.2 mmol/L (07/09/24 11:54 PM) Hct [39-48 %] 32.9 % *LOW* (07/23/24 8:04 AM) 31.3 % *LOW* (07/22/24 8:37 AM) 30.9 % *LOW* (07/21/24 7:27 AM) HDL [>40 mg/dL] 59 mg/dL (07/06/24 4:03 AM) Hgb [13.0-17.0 g/dL] 10.8 g/dL *LOW* (07/23/24 8:04 AM) 10.6 g/dL *LOW* (07/22/24 8:37 AM) 10.4 g/dL *LOW* (07/21/24 7:27 AM) INR [0.9-1.1] 1.1 10 (07/10/24 3:14 AM) 1.3 11 *HI* (07/09/24 2:00 PM) 1.0 12 (07/06/24 4:03 AM) K [3.5-5.1 mmol/L] 3.4 mmol/L 13 *LOW* (07/23/24 8:04 AM) 4.0 mmol/L (07/22/24 4:41 PM) Lab orders combined with other orders received on the same specimen. mmol/L (07/22/24 4:40 PM) Ketones [NEG mg/dL] TRACE mg/dL *Abnormal* (07/06/24 8:41 PM) LDL Chol, Calculated [50-130 mg/dL] 174 mg/dL *HI* (07/06/24 4:03 AM) Leuk Est [NEG] NEGATIVE (07/06/24 8:41 PM) MCH [28-33 pg] 29.0 pg (07/23/24 8:04 AM) 29.5 pg (07/22/24 8:37 AM) 29.1 pg (07/21/24 7:27 AM) MCHC [32-36 g/dL] 32.8 g/dL (07/23/24 8:04 AM) 33.9 g/dL (07/22/24 8:37 AM) 33.7 g/dL (07/21/24 7:27 AM) MCV [81-96 fL] 88.2 fL (07/23/24 8:04 AM) 87.2 fL (07/22/24 8:37 AM) 86.6 fL 14 (07/21/24 7:27 AM) Mg [1.6-2.6 mg/dL] 2.0 mg/dL (07/23/24 8:04 AM) 2.0 mg/dL (07/22/24 4:41 PM) 1.8 mg/dL (07/22/24 8:37 AM) Na [136-145 mmol/L] 130 mmol/L *LOW* (07/23/24 8:04 AM) 127 mmol/L *LOW* (07/22/24 8:37 AM) 130 mmol/L *LOW* (07/21/24 7:27 AM) Nitrite (u) [NEG] NEGATIVE (07/06/24 8:41 PM) SaO2(a) [95.0-98.0 %] 98.9 % *HI* (07/10/24 8:07 AM) 100.0 % *HI* (07/10/24 3:14 AM) 99.2 % *HI* (07/09/24 11:54 PM) pCO2(a) [35-48 mmHg] 48.0 mmHg (07/10/24 8:07 AM) 48.0 mmHg (07/10/24 3:14 AM) 43.0 mmHg (07/09/24 11:54 PM) pH(a) [7.35-7.45 unit] 7.360 unit (07/10/24 8:07 AM) 7.350 unit (07/10/24 3:14 AM) 7.320 unit *LOW* (07/09/24 11:54 PM) PO4 [2.5-4.5 mg/dL] 1.9 mg/dL *LOW* (07/12/24 4:36 AM) 1.8 mg/dL *LOW* (07/11/24 3:13 PM) 2.2 mg/dL *LOW* (07/11/24 3:05 AM) Plts [150-350 K/uL] 477 K/uL *HI* (07/23/24 8:04 AM) 467 K/uL *HI* (07/22/24 8:37 AM) 505 K/uL *HI* (07/21/24 7:27 AM) pO2(a) [83-108 mmHg] 97.0 mmHg (07/10/24 8:07 AM) 103.0 mmHg (07/10/24 3:14 AM) 103.0 mmHg (07/09/24 11:54 PM) PT [12.0-14.2 seconds] 14.3 seconds *HI* (07/10/24 3:14 AM) 16.4 seconds *HI* (07/09/24 2:00 PM) 12.8 seconds (07/06/24 4:03 AM) PTT [23-35 seconds] 28 seconds (07/09/24 2:00 PM) 27 seconds (07/06/24 4:03 AM) RBC [4.40-5.60 M/uL] 3.73 M/uL *LOW* (07/23/24 8:04 AM) 3.59 M/uL *LOW* (07/22/24 8:37 AM) 3.57 M/uL *LOW* (07/21/24 7:27 AM) Temp(a) 36.5 C (07/10/24 8:07 AM) 36.3 C (07/10/24 3:14 AM) 35.9 C (07/09/24 11:54 PM) TG [<150 mg/dL] 103 mg/dL (07/06/24 4:03 AM) Appear (u) CLEAR (07/06/24 8:41 PM) Color (u) YELLOW (07/06/24 8:41 PM) Glu (u) [NEG mg/dL] 50 mg/dL *Abnormal* (07/06/24 8:41 PM) Hgb (u) [NEG] NEGATIVE (07/06/24 8:41 PM) pH (u) [5.0-8.0 unit] 6.0 unit (07/06/24 8:41 PM) Prot (u) [NEG mg/dL] NEGATIVE mg/dL (07/06/24 8:41 PM) Urobili [0.1-1.0 EU/dL] 0.1-1.0 EU/dL (07/06/24 8:41 PM) SG [1.005-1.030] 1.017 (07/06/24 8:41 PM) Temp(v) 37.0 C (07/09/24 11:13 AM) WBC [4.0-10.4 K/uL] 8.08 K/uL (07/23/24 8:04 AM) 8.64 K/uL (07/22/24 8:37 AM) 7.43 K/uL (07/21/24 7:27 AM) 1Result Comment: Performed at: [address] [place] [id number] 2Result Comment: Performed at: [address] [place] [place] [address] 3Result Comment: Performed at: [address] [place] [address] 4Result Comment: DUPL 5Result Comment: ADA Recommended Cochrane Reference Range: Normal: <5.7% Prediabetes: 5.7-6.4% Diabetes: >6.4% Hb A1c results in patients with severe anemia or recent RBC transfusion are unreliable and do not represent the patient glycemic control. 6Result Comment: ADA Recommended Cochrane Reference Range: Normal: <5.7% Prediabetes: 5.7-6.4% Diabetes: >6.4% Hb A1c results in patients with severe anemia or recent RBC transfusion are unreliable and do not represent the patient glycemic control. 7Result Comment: ADA recommendation for FASTING Serum/Plasma Glucose: Normal: 70-100 mg/dL Prediabetes: 100-125 mg/dL Diabetes: 126 mg/dL or higher 8Result Comment: ADA recommendation for FASTING Serum/Plasma Glucose: Normal: 70-100 mg/dL Prediabetes: 100-125 mg/dL Diabetes: 126 mg/dL or higher 9Result Comment: ADA recommendation for FASTING Serum/Plasma Glucose: Normal: 70-100 mg/dL Prediabetes: 100-125 mg/dL Diabetes: 126 mg/dL or higher 10Result Comment: Suggested therapeutic range for low-intensity Coumadin therapy for venous thromboembolism is INR 2.0-3.0 (ex: atrial fibrillation, history of TIA/stroke). For high risk patients, the suggested therapeutic range is INR 2.5-3.5 (ex: mechanical prosthetic valves). 11Result Comment: Suggested therapeutic range for low-intensity Coumadin therapy for venous thromboembolism is INR 2.0-3.0 (ex: atrial fibrillation, history of TIA/stroke). For high risk patients, the suggested therapeutic range is INR 2.5-3.5 (ex: mechanical prosthetic valves). 12Result Comment: Suggested therapeutic range for low-intensity Coumadin therapy for venous thromboembolism is INR 2.0-3.0 (ex: atrial fibrillation, history of TIA/stroke). For high risk patients, the suggested therapeutic range is INR 2.5-3.5 (ex: mechanical prosthetic valves). 13Result Comment: HEMOLYZED SPECIMEN 14Result Comment: CHECKED Radiology Reports * Exam Date Time Procedure Performing Provider Status 07/14/24 6:23 AM XR Chest 2 Views Irene Del Rosario; Final Notes: (XR Chest 2 Views) Reason For Exam: [facility], ct removal XR Chest 2 Views EXAMINATION: XR Chest 2 Views CLINICAL HISTORY: sp [facility], ct removal COMPARISON: 07/13/2024 FINDINGS: Upright PA chest radiograph. Interim removal of right IJ catheter and mediastinal catheters. Unchanged median sternotomy wires. The lungs are better inflated on today's study. The heart and mediastinum are normal for technique.Pulmonary vasculature is normal. Mild bibasilar atelectasis, left greater than right. No large pleural effusion. No pneumothorax. IMPRESSION: Removal of right IJ catheter and mediastinal catheter. No pneumothorax. Improved aeration and improved atelectasis. Workstation ID: [id number] Final Dictated by:MD Carlisle Pamela L Dictated DT/TM:07/14/2024 10:17 Signed by:MD Carlisle Pamela L Signed (Electronic Signature):07/14/2024 10:16 * Exam Date Time Procedure Performing Provider Status 07/13/24 6:07 AM XR Chest 1 View Irene Del Rosario; Final Notes: (XR Chest 1 View) Reason For Exam: s/p OHS XR Chest 1 View EXAMINATION: XR Chest 1 View CLINICAL HISTORY: s/p OHS COMPARISON: 07/12/2024 FINDINGS: Portable upright AP chest radiograph. Right internal jugular approach central venous catheter with tip terminating at the upper SVC. Mediastinal sternotomy wires are intact and aligned. The lungs arehypoinflated. Left basilar chest tube noted, unchanged in position. Enlarged cardiomediastinal silhouette. Normal pulmonary vasculature. Unchanged left basilar atelectasis.. No pleural effusion. No pneumothorax. No acute osseous abnormality. IMPRESSION: Stable postoperative changes of the chest, with hypoinflation. Dr. Romeo Amaya is the dictating resident. Finalized report status indicates that the attending has reviewed the images and report, and agrees with the interpretation. Preliminary report status should be regarded as NOT interpreted by the attending radiologist. Workstation ID: [id number] Final Dictated by:MD Amaya Patrick S Dictated DT/TM:07/13/2024 10:26 Resident:MD Amaya Patrick S Signed by:MD Violet, Leida Martinez Signed (Electronic Signature):07/13/2024 10:25 * Exam Date Time Procedure Performing Provider Status 07/12/24 7:22 AM XR Chest 1 View Ariela Zepeda; Fi nal Notes: (XR Chest 1 View) Reason For Exam: S/P Open Heart Surgery XR Chest 1 View EXAMINATION: XR Chest 1 View CLINICAL HISTORY: S/P Open Heart Surgery COMPARISON: Chest radiograph 07/11/2024. FINDINGS: AP upright view of the chest. Unchanged median sternotomy wires. Left basilar chest tube. Right internal jugular approach centralvenous catheter terminates in the upper superior vena cava. Unchanged mildly enlarged cardiomediastinal silhouette. Persistent hypoinflation and left basilar atelectasis. No new focal parenchymal opacity. No large pleural effusion. No pneumothorax. Unchanged osseous structures. IMPRESSION: 1. Persistent hypoinflation and left basal atelectasis. 2. Stable appearance of the postoperative chest. Dr. Frankie Colunga is the dictating resident. 'Finalized' report status indicates that the attending radiologist has reviewed the images and agrees with the interpretation. 'Preliminary' report status should be regarded as NOT interpreted by the attending radiologist. Workstation ID: [id number] Final Dictated by:MD Colunga Quentin J Dictated DT/TM:07/12/2024 11:15 Resident:MD Colunga Quentin J Signed by:MD Chu Benjamin Signed (Electronic Signature):07/12/2024 11:14 * Exam Date Time Procedure Performing Provider Status 07/11/24 7:13 AM XR Chest 1 View Bianca Morris; Christ castaneda Notes: (XR Chest 1 View) Reason For Exam: POD 2 s/p CABG XR Chest 1 View EXAMINATION: XR Chest 1 View CLINICAL HISTORY: POD 2 s/p CABG COMPARISON: Chest radiograph 07/10/2024. FINDINGS: Upright AP chest. Portions of the left lower lateral chest wall and left costophrenic angle not included in the imaged field of view. Mediastinal/left pleural surgical drain catheters. Rotated left. Right IJ approach central catheter tip lower SVC. Unchanged sternotomy wires. Partially obscured cardiac silhouette. Hypoinflation, decreased lung aeration. Increased left basilar atelectasis. No large pleural effusion. No pneumothorax. Unchanged osseous structures. IMPRESSION: Increased left basilar atelectasis. Workstation ID: [id number] Final Dictated by:DO Hart Matthew D Dictated DT/TM:07/11/2024 8:36 Signed by:DO Hart Matthew D Signed (Electronic Signature):07/11/2024 8:34 a * Exam Date Time Procedure Performing Provider Status 07/10/24 6:31 AM XR Chest 1 View AlvinsoniaGénesis Notes: (XR Chest 1 View) Reason For Exam: Post Procedure Post Open Heart Surgery POD 1 XR Chest 1 View EXAMINATION: XR Chest 1 View CLINICAL HISTORY: Post Procedure Post Open Heart Surgery POD 1 COMPARISON: Multiple priors, most recent chest radiograph dated 07/09/2024 FINDINGS: Upright AP view of the chest. Right internal jugular central venous catheter tip in the mid SVC. Median sternotomy wires. Interval extubation and removal of chest tube and enteric tube. Partially obscured cardiomediastinal silhouette. Hypoventilatory changes. Bibasilar atelectasis. Nolarge pleural effusion. No pneumothorax. Unchanged osseous structures. IMPRESSION: Postoperative chest with hypoventilatory changes. Dr. Merary Rebolledo is the dictating resident. Finalized reports status indicates that the attending has reviewed the images and report, and agrees with the interpretation. Preliminary report status should be regarded as NOT interpreted by the attending radiologist. Workstation ID: [id number] Final Dictated by:MD Rebolledo Haley M Dictated DT/TM:07/10/2024 10:09 Resident:MD Rebolledo Haley M Signed by:MD Chu Benjamin Signed (Electronic Signature):07/10/2024 10:08 * Exam Date Time Procedure Performing Provider Status 07/09/24 3:13 PM XR Chest 1 View Faisal Cruz Notes: (XR Chest 1 View) Reason For Exam: Post Procedure, Post Open Heart Surgery XR Chest 1 View EXAMINATION: XR Chest 1 View CLINICAL HISTORY: Post Procedure, Post Open Heart Surgery COMPARISON: 07/07/2024. FINDINGS: Right internal jugular catheter with tip overlying the upper superior vena cava. Endotracheal tube with tip 2 cm above zahraa. Enteric tube coursing below diaphragm into stomach. Left basilar chest tube in place. No pneumothorax or pleural effusion. Scattered bilateral atelectasis. Heart size is mildly enlarged. There are postsurgical changes of the mediastinum with surgical clips. Intact midline sternotomy wires. Carotid calcifications bilaterally. IMPRESSION: Postsurgical changes of recent open heart surgery. Workstation ID: [id number] Final Dictated by:MD Chu Benjamin Dictated DT/TM:07/09/2024 3:24 Signed by:MD Chu Benjamin Signed (Electronic Signature):07/09/2024 3:23 p * Exam Date Time Procedure Performing Provider Status 07/08/24 12:35 PM VL Carotid Duplex Bilateral Clifton Hanson; Final Notes: (VL Carotid Duplex Bilateral) Reason For Exam: pre-CABG eval VL Carotid Duplex Bilateral [facility] FINAL REPORT Name: GEORGES POLLOCK : 1955 Visit: [id number] Date: 08 Jul 2024 TYPE OF TEST: Cerebrovascular Duplex REASON FOR TEST Post-op CABG INTERPRETATION/FINDINGS Arterial duplex exam of the extracranial cerebrovascular system reveals: 1. No evidence of hemodynamically significant stenosis of the bilateral internal carotid arteries. 2. No significant stenosis in the external carotid arteries bilaterally. 3. Elevated velocities with blunted Doppler flow of unknown etiology noted in the right vertebral artery. Could not visualize the proximal segment due to vessel depth. 4. Antegrade flow in the left vertebral artery. 5. Normal flow in the bilateral proximal subclavian arteries. Plaque Morphology: 1. Heterogeneous plaque in the bilateral bulb and internal carotid arteries. No prior exam available for comparison IMPRESSION/COMMENTS I have personally reviewed the data relevant to the interpretation of this study. TECHNOLOGIST: Cece Hanson RVT PHYSICIAN: Nura Garza M.D. Signed: 07/08/2024 04:33 PM Final Dictated by:MD Garza Faisal Dictated DT/TM:07/08/2024 4:33 Signed by:MD Garza Faisal Signed (Electronic Signature):07/08/2024 4:33 p Transcribed by:CARLOS Baker Exam Date Time Procedure Performing Provider Status 07/08/24 12:35 PM VL Vein Mapping Lower Extremity Preo p Cece Hanson; Final Notes: (VL Vein Mapping Lower Extremity Preop) Reason For Exam: Coronary Artery Disease Pt for CABG VL Vein Mapping Lower Extremity Preop [facility] FINAL REPORT Name: GEORGES POLLOCK : 1955 Visit: [id number] Date: 08 Jul 2024 TYPE OF TEST: Peripheral Venous Testing REASON FOR TEST Pre Op Eval INTERPRETATION/FINDINGS Venous mapping of the bilateral lower extremities reveals: 1. Patent bilateral great saphenous veins without evidence of thrombus or intraluminal wall thickening. 2. Left great saphenous vein is absent in the left mid thigh to knee. May be hypoplastic. 3. See diagram in PACS for specific vein diameter measurements. IMPRESSION/COMMENTS I have personally reviewed the data relevant to the interpretation of this study. TECHNOLOGIST: GEORGE HainesT PHYSICIAN: Nura Garza M.D. Signed: 07/08/2024 04:20 PM Final Dictated by:MD Garza Faisal Dictated DT/TM:07/08/2024 4:20 Signed by:MD Garza Faisal Signed (Electronic Signature):07/08/2024 4:20 p Transcribed by:CARLOS * Exam Date Time Procedure Performing Provider Status 07/07/24 6:12 AM XR Chest 1 View Raquel Anderson; Christ castaneda Notes: (XR Chest 1 View) Reason For Exam: pre op work up XR Chest 1 View EXAMINATION: XR Chest 1 View CLINICAL HISTORY: pre op work up COMPARISON: Outside study chest radiograph 07/03/[address] chest 07/04/2024 FINDINGS: Portable upright single AP view the chest. Mild hypoinflation. Slight indentation of the thoracic trachea, likely due to multinodular thyroid seen on CT. Normal cardiomediastinal silhouette and pulmonary vasculature. No focal consolidation. No pleural effusion. No pneumothorax. No acute osseous abno rmality. IMPRESSION: No acute radiographic abnormality of the chest. Workstation ID: [id number] Final Dictated by:DO Combs Rushi Dictated DT/TM:07/07/2024 12:32 Signed by:DO Combs Rushi Signed (Electronic Signature):07/07/2024 12:30 * Exam Date Time Procedure Performing Provider Status 07/06/24 2:07 PM Echo TransTHORacic TTE Complete w/ Co nt Nery Valenzuela; Final Notes: (Echo TransTHORacic TTE Complete w/ Cont) Reason For Exam: pre-CABG eval Echo TransTHORacic TTE Complete w/ Cont Report Signatures Finalized by Faye Carvalho MD on 07/07/2024 08:24 AM Promoted to Fellow by Dr. Gamal Alan MD on 07/06/2024 04:13 PM [place] Act 112: No-No further action needed Summary 1. Very technically challenging study with limited visualization of cardiac structures despite use of Definity contrast. 2. Normal left ventricular size and systolic function; no gross regional wall motion abnormalities. 3. Estimated Ejection Fraction 60-65%. 4. Mild left ventricular hypertrophy. 5. Right ventricle not well visualized but appears grossly unremarkable. 6. Aortic valve not well visualized, but Doppler evidence of elevated velocities and gradients across the valve (peak velocity 2.4 m/s and mean gradient 13 mmHg) suggestive of at least mild aortic stenosis; no significant aortic insufficiency appreciated. 7. Remaining valvular structures not well-visualized. 8. No prior studies for comparison. Patient Info Name: GEORGES POLLOCK Age: 69 years : 1955 Gender: Male Ht: 177 cm Wt: 161 kg BSA: 2.90 m2 HR: 68 bpm BP: 101 / 46 mmHg Heart Rhythm: Sinus Rhythm Technical Quality: Very technically difficult study Exam Date: 07/06/2024 1:33 PM Exam Location: [place] [address] Patient Status: Inpatient Staff Ordering Physician: Angelia Whiting Commissioner Of Officials: Nery Valenzuela RDCS Attending Physician: Kartik Cortez Study Info CPT J3490 - 51959 - Indications - Pre-CABG eval I2510 - Coronary artery disease without angina pectoris Procedure(s) * A complete two-dimensional, color flow and Doppler transthoracic echocardiogram was performed. * Very technically challenging study with limited visualization of cardiac structures despite use of Definity contrast. * Commissioner Of Officials, Nery Valenzuela RDCS, provided education about ultrasound enhancing agent to the patient. Exam Type: Cardiac Basic Left Ventricle Normal left ventricular size and systolic function; no gross regional wall motion abnormalities. Estimated Ejection Fraction 60-65%. Mild left ventricular hypertrophy. Inconclusive data to evaluate diastolic function. Right Ventricle Right ventricle not well visualized but appears grossly unremarkable. Left Atrium Left atrium was not well visualized. Right Atrium Right atrium was not well visualized. Atrial Septum The interatrial septum not well visualized. Aortic Valve Aortic valve not well visualized, but Doppler evidence of elevated velocities and gradients across the valve (peak velocity 2.4 m/s and mean gradient 13 mmHg) suggestive of at least mild aortic stenosis; no significant aortic insufficiency appreciated. Pulmonic Valve Pulmonic valve not well visualized. Mitral Valve Mitral valve is not well visualized, but there appears to be mild mitral annular calcification with no Doppler evidence of significant stenosis or regurgitation. Tricuspid Valve Tricuspid valve is not well visualized. Insufficient data for estimation of pulmonary artery systolic pressure. Pericardium/Pleural No significant pericardial effusion. Inferior Vena Cava Inferior vena cava is not well visualized. Aorta Normal aortic root. Left Ventricular Outflow Tract Name Value Normal LVOT 2D LVOT Diameter 1.8 cm LVOT Doppler LVOT Peak Velocity 1.09 m/s LVOT Peak Gradient 5 mmHg LVOT Mean Gradient 2 mmHg LVOT VTI 21.91 cm LVOT VTI/AV VTI Ratio 0.40 LVOT Stroke Volume 58.64 ml LVOT Stroke Volume Index 0.02 l/m2 LVOT Cardiac Output 3.99 l/min LVOT Cardiac Index 1.37 L/min/m2 Pulmonic Valve Name Value Normal RVOT Doppler RVOT Peak Velocity 1.06 m/s RVOT Peak Gradient 4 mmHg RVOT Mean Gradient 2 mmHg PV Doppler PV Peak Gradient 7 mmHg PV Mean Gradient 3 mmHg Mitral Valve Name Value Normal MV Doppler MV Decel Shelby 327.30 cm/s2 MV PHT 74 ms MV Diastolic Function MV E Peak Velocity 0.84 m/s <=0.50 MV A Peak Velocity 1.16 m/s MV E/A 0.73 <=0.80 MV Decel Time 256 ms Tricuspid Valve Name Value Normal TV Diastolic Function TV E Peak Velocity 0.40 m/s TV A Peak Velocity 0.55 m/s TV E/A 0.73 0.80-2.00 TV Decel Time 186 ms >=120 Aorta Name Value Normal Ascending Aorta Sinus of Valsalva Diameter 3.3 cm 3.1-3.7 Sinus of Valsalva Index 1.15 cm/m2 1.50-1.90 Aortic Valve Name Value Normal AV Doppler AV Peak Velocity 2.41 m/s <2.00 AV Peak Gradient 23 mmHg AV Mean Gradient 13 mmHg <20 AV VTI 54.40 cm AV Area (Cont Eq VTI) 1.1 cm2 >=2.0 AV Area Index (Cont Eq VTI) 0.37 cm2/m2 AV Area (Cont Eq Cipriano) 1.2 cm2 AV Area Index (Cont Eq Cipriano) 0.42 cm2/m2 AV V1/V2 Ratio 0.45 AV Regurgitation 2D LVOT Area 2.7 cm2 Ventricles Name Value Normal LV Dimensions 2D/MM IVS Diastolic Thickness (2D) 1.4 cm 0.6-1.0 LVID Diastole (2D) 5.5 cm 3.6-5.6 LVIW Diastolic Thickness (2D) 1.1 cm 0.6-1.0 LVID Systole (2D) 4.1 cm 2.5-4.0 LVOT Diameter 1.8 cm LV Mass (2D Cubed) 279.02 g 88.00-224.00 LV Mass Index (2D Cubed) 0.01 g/cm2 0.00-0.01 Relative Wall Thickness (2D) 0.38 LV Fractional Shortening/Ejection Fraction 2D/MM LV Fractional Shortening (2D) 26 % 25-43 Final Signed by:MD Maia, Faye Lazo Signed (Electronic Signature):07/06/2024 1:33 p Vital Signs Most recent to oldest [Reference Range]: 1 2 3 Height 177.8 cm (07/06/24 4:01 AM) Patient Weight 154.3 kg (07/23/24 5:00 AM) 154.4 kg (07/22/24 5:47 AM) 154.4 kg (07/21/24 5:33 AM) Body Mass Index 51.21 kg/m2 (07/06/24 4:01 AM) Temperature [36.5-37.9 DegC] 36.2 DegC *LOW* (07/23/24 10:09 AM) 36.0 DegC *LOW* (07/23/24 12:00 AM) 36.0 DegC *LOW* (07/22/24 8:00 PM) Heart Rate 101 bpm (07/23/24 10:18 AM) 102 bpm (07/23/24 10:09 AM) 100 bpm (07/23/24 5:29 AM) Respiratory Rate 18 br/min (07/23/24 10:09 AM) 20 br/min (07/23/24 12:00 AM) 20 br/min (07/22/24 8:00 PM) Blood Pressure 122/63mmHg (07/23/24 10:09 AM) 128/76mmHg (07/23/24 5:29 AM) 122/62mmHg (07/23/24 12:00 AM) Mean Blood Pressure 78 mmHg (07/23/24 10:09 AM) 89 mmHg (07/23/24 5:29 AM) 74 mmHg (07/23/24 12:00 AM) Cuff Pulse Pressure 59 mmHg (07/23/24 10:09 AM) 52 mmHg (07/23/24 5:29 AM) 60 mmHg (07/23/24 12:00 AM) BP Location # 1 Left Arm, Non-invasive (07/23/24 10:09 AM) Left Arm (07/23/24 5:29 AM) Left Arm, Non-invasive (07/23/24 12:00 AM) Social History Social History Type Response Smoking Status Former Smoker, quit > 1 yr Sex Sex Representation Male (finding) EKG study * Contributor_system, [id number]: VERIFY, PERFORM Event Display: EKG Authored Date: [id number] Please click on link to see image. * Contributor_system, [email or web address]: VERIFY, PERFORM Event Display: EKG Authored Date: [id number] Please click on link to see image. * Contributor_system, [email or web address]: VERIFY, PERFORM Event Display: EKG Authored Date: [id number] Please click on link to see image. Anes H&P * MD Audi, Francisco Su: MODIFY, SIGN, MODIFY, SIGN, PERFORM MD Huntley Parker Richard: PERFORM MD June Adam Y: VERIFY, SIGN MD June Adam Y: SIGN Event Display: Anes H&P Authored Date: [id number] Patient: GEORGES POLLOCK Age: 69 years Sex: Male : 1955 Associated Diagnoses: None Author: MD Audi, Francisco Su Preoperative Information Pre-Operative Diagnosis: Severe multivessel CAD . Anesthiesia Preop Info: Procedure: CABG X 3-4 AORTIC VALVE REPAIR/REPLACE ENDO VEIN HARVEST CASEY Date: 07/09/24 07:00 Surgeons: MD Cortez Kentaro Diagnosis: AORTIC STENOSIS . History of Present Illness 69-year-old male, 161 kg (BMI 51), with past medical history of severe multivessel CAD, hypertension (hydrochlorothiazide irbesartan), and type 2 diabetes (pioglitazone). Patient was a transfer from [facility] with elevated troponins and new onset chest pain. Left heart catheterization shows LAD, RCA, LCx, OM1, and large ramus with all varying degrees of stenosis greater than 70%. Patient was also normal ejection fraction 60-65% and suggestive mild aortic stenosis (difficult exam with body habitus). Pt likely has LILLIAN (unsure of creatine baseline for chronicity). Pt has been receiving metoprolol tartrate and succinate for BP control. No infusions. I/O: Positive 720cc over admission (as of 07/08/24) NPO: TBD: Solids>8hrs and Clear Liquids>2hrs Prior A/W: None Studies: Echo TransTHORacic TTE Complete w/ Cont 07/07/2024 08:24 AM Summary 1. Very technically challenging study with limited visualization of cardiac structures despite use of Definity contrast. 2. Normal left ventricular size and systolic function; no gross regional wall motion abnormalities. 3. Estimated Ejection Fraction 60-65%. 4. Mild left ventricular hypertrophy. 5. Right ventricle not well visualized but appears grossly unremarkable. 6. Aortic valve not well visualized, but Doppler evidence of elevated velocities and gradients across the valve (peak velocity 2.4 m/s and mean gradient 13 mmHg) suggestive of at least mild aortic stenosis; no significant aortic insufficiency appreciated. 7. Remaining valvular structures not well-visualized. 8. No prior studies for comparison. EXAMINATION: XR Chest 1 View CLINICAL HISTORY: pre op work up COMPARISON: Outside study chest radiograph 07/03/[address] chest 07/04/2024 FINDINGS: Portable upright single AP view the chest. Mild hypoinflation. Slight indentation of the thoracic trachea, likely due to multinodular thyroid seen on CT. Normal cardiomediastinal silhouette and pulmonary vasculature. No focal consolidation. No pleural effusion. No pneumothorax. No acute osseous abno rmality. IMPRESSION: No acute radiographic abnormality of the chest. Infusions: -- None Labs: BMP: Date Na K Cl HC03 BUN Cret Glu Ca 07/08/2024 05:27 134 4.2 99 26 31 1.35 143 9.3 07/06/2024 04:03 137 4.1 97 27 34 1.29 130 9.9 CBC: Date WBC Hgb Hct Plts Neut, Abs 07/08/2024 05:27 6.7 13.1 39.9 274 07/06/2024 04:03 6.3 13.5 40.7 301 Date: PT: PTT: INR: 07/06/24 04:03 12.8 27 1.0 Access: 2x PIV Medical History Medical Devices: Medical Devices: none . Health Status Allergies: Allergic Reactions (Selected) Severity Not Documented LevoFLOXacin- Tongue swelling and anaphylaxis. Penicillin- Unknown. Statins (HMG-CoA reductase inhibitors)- Muscles cramping and unable to walk. Sulfa drugs- Unknown.. Medications: Medication List (Selected) Documented Medications Documented Lasix 20 mg oral tablet: 1 tab, PO, Daily atenolol: 100 mg, PO, Daily betamethasone-clotrimazole 0.05%-1% topical cream: 1 appl, topical, bid hydroCHLOROthiazide 25 mg oral tablet: 0.5 tab, PO, Daily irbesartan: 150 mg, PO, Daily montelukast 10 mg oral tablet: 1 tab, PO, qPM pioglitazone 45 mg oral tablet: 1 tab, PO, Daily tamsulosin: 0.4 mg, PO, Daily. Histories Procedure History: CYSTOSCOPY W/BIOPSY(S) (10694) in 1995 at 40 Years.. 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 Former Smoker, quit > 1 yr Other Tobacco Use: Former other tobacco use, quit in the last 31 days - 1yr Alcohol: Recreational Drugs: . Physical Examination VS/Measurements: Reviewed Results: Vital Signs(Date Range: 07/07/2024 00:00 EST - 07/08/2024 15:18 EST) . General: Alert and oriented, No acute distress. Airway: Mallampati classification: III (soft palate, base of uvula visible). Mouth: Within normal limits, Teeth ( Within normal limits, edentulous on the top row. Intact dentition on lower row. ). Head: Normocephalic. Neck: Supple, Non-tender, No jugular venous distention, Decrease extension, Large neck circumference . Respiratory: Lungs are clear to auscultation, Respirations are non-labored, Difficult to ausculate due to body habitus. . Cardiovascular: Normal rate, Regular rhythm, 2/6 holosystolic murmur appreicated at LUSB and RUSB. Gastrointestinal: Soft, Large central adiposity. Musculoskeletal: Normal range of motion. Neurologic: Alert. Anesthesiologist Assessment and Plan Problems: No previous anesthetic complications. Cardiac risk factors: High risk surgery, CAD. Risk of major adverse cardiac event (Revised Cardiac Risk Index): 2 = 7%. ASA Classification: Class III. Anesthetic Plan: Anesthetic technique discussed: General anesthesia. Induction discussed: Intravenously. Airway plan discussed: Oral endotracheal tube. Special monitoring discussed: Arterial line, Central venous catheter, Transesophageal Echocardiography. Risks discussed: Nausea-vomiting, Headache, Sore throat, Dental injury, Eye injury, Allergic reaction, Serious complications, Nerve damage, Aspiration. Informed consent: Signed by patient. Special techniques and precautions discussed: Aspiration precautions, Transfusion of blood or bloodproducts, Postoperative ICU, Mechanical ventilation. History, Physical Exam, Assessment and Plan Completed: 07/08/2024 15:22:00, MD Audi, Francisco Su. Electronic Signature on File Electronically Reviewed/Signed by: Francisco Huntley MD Author Signature Dt/Tm:07/08/2024 03:23 PM Resident Department of Anesthesia Electronically Reviewed/Signed by: Francisco Huntley MD Cosigner Signature Dt/Tm: 07/08/2024 03:24 PM Resident Department of Anesthesia Electronically Reviewed/Signed by: Tavares June MD Cosigner Signature Dt/Tm: 07/09/2024 06:43 AM Department of Anesthesia PRB * MD Cortez Kentaro: MODIFY MD Cortez Kentaro: MODIFY, MODIFY DO Whiting Mohammad: MODIFY Event Display: H&P Authored Date: [id number] HISTORY AND PHYSICAL Name: GEORGES POLLOCK Patient Number: [id number] : 1955 Date of Service: 07/06/2024 Surgical Hospital Day/Procedure: No procedures found Chief Complaint: Chest pain and multivessel CAD History of Present Illness: 69-year-old male with morbid obesity (BMI >50) uncontrolled hyperlipidemia (LDL 157), diabetes (on pioglitazone) and family history of MIs presented to [facility] with chest pain. His last troponin value I can see in the records sent over was 150s. Coronary angiography showed proxLAD with 80% stenosis and severe calcification, 80% mid-LAD stenosis, 90% distal LAD stenosis. LCx had a 90% stenosis just prior to OM1 branching. Large Ramus has a 90% stenosis, RCA has a 90% mid-RCA stenosis and 70% distal RCA stenosis. They were unable to cross the aortic valve and there was concern for aortic stenosis. Patient was symptom free. TTE showed mildly reduced LVEF 45% but was technically challenging given his habitus. Aortic peak velocity was reported at 2.6 m/s with an LVOT peakvelocity of 1.7 m/s. None of these images are transferred with the patient and not pushed to PACs. Review Of Systems: 14 point ROS reviewed and negative unless otherwise stated in HPI. Past Medical History: morbid obesity (BMI >50) uncontrolled hyperlipidemia (LDL 157) (intolerance to statins), diabetes (on pioglitazone) Procedure History Procedure Procedure Date Comments CYSTOSCOPY W/BIOPSY(S) 1995 Family History: Brother, mother, and all siblings had MIs. Brothers had them relatively young. Thisprompted patient to make an appointment with cardiology but didn't get a chance to see them yet. Allergies and Sensitivities: Statins (HMG-CoA reductase inhibitors)(muscles cramping) Statins (HMG-CoA reductase inhibitors)(unable to walk) levoFLOXacin(anaphylaxis) levoFLOXacin(tongue swelling) sulfa drugs(unknown) penicillin(unknown) Current Home Meds: (Last Updated 07/06 03:59) atenolol 100 mg PO Daily betamethasone-clotrimazole topical (betamethasone-clotrimazole 0.05%-1% topical cream) 1 appl topical bid furosemide (Lasix 20 mg oral tablet) 20 mg PO Daily hydroCHLOROthiazide (hydroCHLOROthiazide 25 mg oral tablet) 12.5 mg PO Daily irbesartan 150 mg PO Daily montelukast (montelukast 10 mg oral tablet) 10 mg PO qPM pioglitazone (pioglitazone 45 mg oral tablet) 45 mg PO Daily tamsulosin 0.4 mg PO Daily Vitals: Last Updated 07/06/24 04:14 Weights: Last Updated 07/06/24 04:01 Date Temp Pulse BP RR SpO2 FIO2 Date Wt(kg) Wt(lb) 07/06 04:14 36.7 66 132/70 17 98 07/06 04:01 161.9 356 07/06 04:01 161.9 356 24 Hr Tmax: 36.7 at 07/06 04:14 Initial Wt: 07/06 161.9 kg 356 lb Physical Exam: General: obese, no acute distress HEENT: atraumatic, normocephalic Neck: soft, supple, no JVD Cardiac: RRR, +S1+S2, 2/6 mid-peaking systolic murmur Lungs: CTAB, no wheezes, or rales Abdomen: soft, nontender, nondistended Extremities: bilateral radial and dorsalis pedis pulses palpable Neuro/Psych: AAOx3, strength and sensation grossly intact Most Recent 24 Hour CBC/BMP Results CBC:on 07/06/2024 04:03 13.5 6.3 301 40.7 Most Recent 24 Hour Labs: 07/06/24 0404 ABO/Rh See Flowsheet Antibody Scr See Flowsheet Expires at 0600AM on See Flowsheet # Units 0 R Number See Flowsheet B Comments See Flowsheet Component See Flowsheet 07/06/24 0403 MCH 29.7 MCHC 33.2 MCV 89.6 RBC 4.54 MPV 8.9 L RDW 14.3 H 07/06/24 0344 Gluc Meter 131 H Studies: Pending or Completed in the Last 24 Hours VL Carotid Duplex Bilateral Ordered VL Vein Mapping Lower Extremity Preop Ordered Echo TransTHORacic TTE Complete Ordered EKG Ordered ASSESSMENT: 69-year-old male with severe CAD on recent angiography presents for cardiac surgery evaluation. Multivessel CAD: Details above and films uploaded to PACs. - TTE ordered pending. - US carotid and vein mapping pending. - Continue Irbesartan 150 mg daily, Metoprolol tartrate 12.5 mg BID - Continue Aspirin 81 mg daily. Patient not on heparin drip at outside hospital and pain free so wewill defer for now. - Patient intolerant to statins in the past. - Will order Lipid profile and consider PCSK9 for therapy. - Will continue to evaluate for CABG candidacy. Diabetes: - Sliding scale. - Order A1C FULL CODE CT Surgery Attending: I saw and evaluated the patient with the team. I reviewed the note above Dr. Johanne VALDES, and agree with his findings and plan as documented above. I discussed with the patient and his family regarding his cardiac and other medical condition, purpose and indications for treatment, treatment options, surgical procedure, risks and benefits of surgery. The patient agreed to proceed for CABG with possible tissue AVR. Questions were answered. Kartik Cortez MD. Electronic Signature on File Electronically Reviewed/Signed by: Angelia Whiting DO Author Signature Dt/Tm:07/06/2024 05:14 AM Resident [facility] [place] Electronically Reviewed/Signed by: Kartik Cortez MD Cosigner Signature Dt/Tm: 07/07/2024 10:05 AM Division of Cardiothoracic Surgery [place] Surgical operation note * MD Cortez Kentaro: PERFORM Event Display: .Operative Report Authored Date: [id number] OPERATIVE REPORT Name: GEORGES POLLOCK Patient Number: [id number] : 1955 Date of Service: 07/09/2024 SURGEON: Kartik Cortez MD. RESEARCH DEVELOPMENT MANAGER(s): Igor Hernandes PA-C, Renée Reilly PA-C. PREOPERATIVE DIAGNOSIS: 1. Coronary artery disease, blackfeet. 2. Non-ST elevation myocardial infarction. 3. Hyperlipidemia. 4. Diabetes mellitus. 5. Morbid obesity, BMI 51.2. 6. Systolic heart failure with preserved LVEF, probably chronic. 7. NYHA class 3. 8. Hyponatremia, preoperatively. 9. Chronic kidney disease, stage 3. 10. Aortic stenosis, [id number]. POSTOPERATIVE DIAGNOSIS: Same. OPERATION PERFORMED: 1. Coronary artery bypass grafting x3: Left internal mammary artery to the mid- left anterior descending artery, Aorta to the ramus intermedius artery using a reversed saphenous vein graft, Aorta to the obtuse marginal artery using a reversed saphenous vein graft. 2. Endoscopic saphenous vein harvest. 3. Transesophageal echocardiogram. 4. Epiaortic ultrasound scan. ANESTHESIA: General endotracheal. INDICATIONS: The patient is a 69-year-old male with morbid obesity (BMI >50), uncontrolled hyperlipidemia (LDL 157), diabetes (on pioglitazone) and family history of myocardial infarctions presented to [facility] with chest pain. His last troponin value was 150s. Coronary angiography showed prox LAD with 80% stenosis and severe calcification, 80% mid-LAD stenosis, 90% distal LAD stenosis. LCx had a 90% stenosis just prior to OM1 branching. Large Ramus has a 90% stenosis, RCA has a 90% mid-RCA stenosis and 70% distal RCA stenosis. They were unable to cross the aortic valve and there was concern for aortic stenosis. TTE showed mildly reduced LVEF 45% but was technically challenging given his habitus. Aortic peak velocity was reported at 2.6 m/s with an LVOT peak velocity of 1.7 m/s. The patient was transferred to [facility] for further management. His repeat TTE at [facility] showed improved LVEF of 60-65% with at least mild aortic stenosis. The patient was found to be an appropriate candidate for a surgical revascularization with possible tissue AVR. I discussed with the nirmala ent and his family regarding his cardiac and other medical condition, purpose of treatment, treatment options, risks and benefits from the procedure, etc. Procedural risks includes, but not limited to, myocardial infarction, atrial fibrillation or other arrhythmias, heart block which may require a pacemaker, respiratory distress or failure, pneumonia, infection including sternal wound or other surgical sites, which may require further surgical intervention, prolonged ventilation, early or late graft failure, bleeding which may require re- operation, renal failure which may require renal replacement therapy, hepatic failure, bowel ischemia, leg ischemia, edema, pleural effusion, pain associated with the procedure, stroke, encephalopathy, delirium, etc. The patient understands all these risks and anticipates that any of these complications may occur and agreed to proceed. He was planned for CABG with possible tissue AVR in an urgent basis for his symptoms and anatomy. Risk of mortality (2-3%) was discussed with the patient. Findings: Pericardium: There was mild adhesion around the ascending aorta. Aorta: There was no palpable plaque in the ascending aorta. There was no mobile or protruding plaque noted by epiaortic scan. LV: Not enlarged. Preserved LV systolic function. RV: Mildly dilated. Preserved RV systolic function. Conduits: Left internal mammary artery: 2.0 mm, adequate flow and quality. Saphenous vein graft:Adequate size and quality. Targets: Mid-LAD 1.5 mm diameter, severely diseased. OM 1.25 mm, severely diseased. Ramus In intermedius 1.5 mm, severely diseased. Distal RCA was significantly diseased and their branches were too small and too diseased for bypass targets. Prebypass GAYLE showed [id number] with MAMADOU of 1.3-1.4 sq cm. Considering his high risk profile, it was decided not to perform a valvular intervention. The patient was aware this potential situation with future TAVR option, if needed. Specimen: None. Estimated blood loss: 50 mL. Cell Saver system was utilized. Complication: None. DESCRIPTION OF PROCEDURE: The patient was brought into the operating room and placed supine on the operating table. Followinginduction of satisfactory general endotracheal anesthesia, the patient was positioned, prepped and draped in a sterile fashion. A team timeout was performed. Transesophageal echocardiogram was performed. The greater saphenous vein was harvested from the left leg using endoscopic technique and preserved in heparinized solution. The incision was irrigated and closed in layers. A median sternotomy was performed. The mammary retractor was placed. The left internal mammary artery was taken down withelectrocautery in semi-skeletonized fashion. Systemic heparin was given and the mammary artery was detached, trimmed, and wrapped in Papaverine sponge. The pericardium was opened. A pericardial well was created with interrupted 0 silk sutures. The patient was cannulated in the standard fashion witha 22 Martiniquais cannula for arterial perfusion and 29/37 Martiniquais cavoatrial cannula for venous return. Acardioplegia needle was placed in the ascending aorta with a side-arm vent and retrograde coronary sinus catheter was placed through the right atrium. The patient was placed on cardiopulmonary bypassand the patient was cooled to 34 degrees Celsius. A crossclamp was applied. Myocardial protection was achieved with cold antegrade and retrograde blood cardioplegia for induction and cold retrograde b lood cardioplegia for maintenance every 20 minutes. The heart was positioned and the ramus intermedius artery was identified and a reversed saphenous vein graft was anastomosed using a 7-0 Prolene. The obtuse marginal artery was identified and the distal end of a reversed saphenous vein graft was anastomosed in end-to-side using a 7-0 Prolene. The proximal ends of the saphenous vein graft were anastomosed to 4.8 mm and 4.0 mm aortotomies in the ascending aorta using 6-0 Prolene sutures after their distal anastomoses. The mid-left anterior descending artery was identified and an arteriotomy was made. The distal end of the left internal mammary artery was then anastomosed in end-to-side fashion using a running 7-0 Prolene suture. The clamps on the grafts were removed, grafts were deaired and the crossclamp was removed. Surgical sealant was applied to the anastomoses. The proximal and distal anastomoses were hemostatic. Doppler flow sounds were satisfactory in all grafts. The patient wasventilated and weaned from cardiopulmonary bypass without difficulty. The patient was weaned off from cardiopulmonary bypass and was decannulated. Protamine was administered and hemostasis was obtained. All cannulation sites were hemostatic. Two mediastinal tubes and a left pleural tube were placed. The sternum was approximated with stainless steel wires. The fascia, subcutaneous tissue and skin were closed in layers. Sponge and needle counts were correct. The patient was taken to the intensivecare unit and tolerated the procedure well. Cardiopulmonary bypass time was 109 minutes. Aortic crossclamp time was 82 minutes. Mr. Igor Hernandes PA-C, was the special education assistant in this entire case. I personally performed or supervised the procedure and was immediately available for the entire case. I requested post operative pain management to be managed by our acute pain providers. Prophylactic antibiotics were continued, planning discontinuation within 24 hours. I understand that section 1842(b)(7)(D) of the Social Security Act generally prohibits Medicare physician fee schedule payment for the services of assistants at surgery in [facility] when qualified residents are available to furnish such services. I certify that the services for which payment is claimed were medically necessary and that no qualified resident was available to perform the services. I further understand that these services are subject to post- payment review by the Medicarecarrier. Kartik Cortez MD. Electronic Signature on File CC: Brannon Altman MD [facility] [address] [place] [id number] * CC: Zach Villarreal MD [facility] [address] [place] [id number] * Electronically Reviewed/Signed by: Kartik Cortez MD Author Signature Dt/Tm:07/09/2024 03:57 PM Division of Cardiothoracic Surgery [place] PM&R Inpt Consult * DO Abbott Neyha: MODIFY DO Abbott Neyha: MODIFY, MODIFY, MODIFY Event Display: PM&R Inpt Consult Authored Date: [id number] Name:GEORGES POLLOCK Patient Number:[id number] :1955 Date of Service:07/11/2024 Referring Physician: Referring Physician: MD Agapito, Brannon Blue [address] [address] (BUSINESS) [phone] (FAX BUSINESS) Consulting Physician:Dr. Cortez (Cardiac Surgery) Reason for Consultation:Rehab/Dispo recs Hospital Day: Hospital Day:5 Primary Admitting Diagnosis: Diagnosis: History of morbid obesity Coronary artery disease Hypotension Chief complaint: Patient notes"PTsaid they were going tocome help me walk" HPI: Georges Pollock is a 69yoM with PMH morbid obesity, hld, diabetes who initially [facility]03[facility] chief complaint of chest pain, found to have elevated troponin and 80%-90% stenosis of proximal LAD with LCx 90% stenosis, RCA 90% stenosis and aortic stenosis. TTErevealed LVEF 45% however study was limiteddue to body habitus. The patient was [place] [facility] [place] for managementof his NSTEMI and multivessel CAD and Aortic Stenosis with cardiac surgery for CABG. He underwent CABG x [address] Cortez on 07/09/2024. Postoperativelycomplicated by cardiogenic shock requiring inotropic gtt, weaned off pressors on 07/10. Hospital course was complicated by post-op atelectasis, LILLIAN, electrolyte imbalance, uncontrolled DMrequiring insulin gtt, Present status: pleasant, sitting up in chair, brother, Jasson, at bedside Pain: denies Fatigue: endorses PO intake: decreased, however recently had first full meal BM: receiving colace and Dulcolax suppository Micturition: griffith DVT prophylaxis with heparin subq Weight bearing status:sternal precauations Procedures performed on/related to this admission: 07/09 CABG x 3 Problems: Vitamin B 12 deficiency Morbid obesity Kidney stones History of BPH Diabetes type 2 Hyperlipemia Hypertension Procedure History Procedure Procedure Date Comments CYSTOSCOPY W/BIOPSY(S) 1995 Fam Hx:MIspaternal and maternal Allergies (4) ActiveReaction levoFLOXacinanaphylaxis penicillinunknown Statins (HMG-CoA reductasemuscles cramping inhibitors) sulfa drugsunknown Social History: Tobacco/EtOh/Illicits:denies, very infrequent etOH use Working History: retired from [employer]formerly [employer]) Social supports: 24 hour assistance may be available Home situation: 1 story home with 1st floor set up available, lives with Functional History:previously independent. Functional History: Home DME: Has DME in home: shower chair,SPC, rollator, RW, w/c. Premorbid ADL's: independent Premorbid Mobility: good Present: decrease in mobility and function Physical Therapy (07/10): Functional Mobility Sit <>Stand: Contact Guard (with cues for hand placement and sternal precautions), AssistedDevice: rolling walker, Pt maintained standing balance ~20 seconds with MAP continually dropping to 40s, RN present to monitor; pt assisted back to seated reclined position with LEs elevated and MAP returning to 70s; pt reported minimal dizziness throughout . Balance Sitting: Static, With UE Support, F: Requires supervision to maintain balance. Standing: Static, Device: rolling walker, F-: Requires contact guard to maintain balance. Treatment: Functional Mobility Weight Shift: Lean Forward: Contact Guard, into unsupported sitting in recliner chair for ~3 minutes with BUE support; cues for sternal precautions. Treatment: Therapeutic Exercises Exercises: Ankle Pumps: Bilateral, Sitting, Active, Reps: 15. Long Arc Quad: Right, Left, Sitting, Active, Reps: 10. Discharge Information Services recommended at discharge: Ongoing Physical Therapy in an inpatient setting. Occupational Therapy (07/10): Activities of Daily Living Assessment Self Care Assessment: Grooming: Set up, : ( Supported sitting ). Upper Body Bathing: Sponge bathing, Moderate Assistance, : ( Supported sitting ). Lower Body Dressing: Dependent, Article of clothing ( Socks ). Toileting: Uses ( Catheter ). Functional Mobility Assessment Functional Transfers: Sit to Stand: Contact Guard, pt hypotensive in standing with MAPs inthe 40s. Nursing staff present and reports this occured when pt got out of bed. Pt with minimalreports of dizziness. Pt assisted back to sitting position and reclined with legs elevated. BP to 117/54 at end of session, Equipment Used ( Rolling walker ). Balance: [facility] Sitting Balance Score: 2 ( Patient supports self independently with both upper extremities. ). Discharge Information Services recommended at discharge: Ongoing Occupational Therapy in an inpatient setting. Review Of Systems:Review of systems is negative, unless specified above. Active Inpt Meds: acetaminophen 1,000 mg PO q8h aspirin 81 mg PO Daily bisacodyl (Dulcolax Laxative (vegetable base) 10 mg rectal suppository) 10 mg [place] Daily docusate (Colace) 100 mg PO bid furosemide (Lasix) 20 mg IV Push bid (6a - 2p) heparin 5,000 unit subQ q8h insulin lispro (HumaLOG Sliding Scale Low) subQ ac and hs montelukast 10 mg PO qPM nystatin-triamcinolone topical 1 appl topical tid pantoprazole (Protonix) 40 mg IV Push q24h polyethylene glycol 3350 (MiraLax) 17 g PO Daily pregabalin 75 mg PO bid tamsulosin 0.4 mg PO Daily Active PRN Meds: calcium gluconate 2,000 mg IV As indicated cyclobenzaprine 5 mg PO tid dextrose (Dextrose 50% syringe) 50 mL IV Push As indicated dextrose (Dextrose 50% syringe) 25 mL IV Push As indicated magnesium sulfate 2,000 mg IV As indicated magnesium sulfate 4,000 mg IV As indicated ondansetron (Zofran) 4 mg IV Push q6h oxyCODONE 5 mg PO q4h oxyCODONE 10 mg PO q4h potassium chloride 10 mEq IV As indicated potassium chloride 20 mEq IV As indicated sodium chloride nasal (Coffey 0.65% nasal spray) 1 spray each nostril q30min One Time Meds:None Active IV Meds:None Physical Examination: Vitals:Vital Signs (last 24 hrs) Last Charted Resp Rate21 br/min (JUL 11:) BJW084 mmHg (JUL 11:) DBP63 mmHg (JUL 11:) IzT752 % (JUL 11:) Constitutional:Vitals reviewed. NAD, resting comfortably in chair, obese Eyes: EOMI bl, Tracking appropriately. HENT:NC/AT, Mucous Membranes moist. Neck: Neck supple, trachea midline. Heart:RR, + S1, S2 Chest:CTA, breathing comfortably Abdomen:NDNT, + BS :no griffith Extremity:moves all 4 extremities against gravity. + Peripheral edema Neuro:Awake, Conversant.AAOx3, CN II-XII grossly intact, sensation intact to LT Laboratory: BMP: Date Na K Cl HC03 BUN Cret Glu Ca 07/11/2024 03:05 133 5.0 100 23 18 1.03 152 8.4 07/10/2024 15:02 134 4.5 100 24 20 1.14 185 8.3 07/10/2024 03:14 132 4.8 101 24 23 1.13 170 8.6 CBC: Date WBC Hgb Hct Plts Neut, Abs 07/11/2024 03:05 8.4 8.8 26.8 157 07/10/2024 03:14 14.1 10.7 31.4 208 07/09/2024 14:00 20.3 11.5 33.9 219 ICa:1.13 M.0 Phos:2.2 Date: PT: PTT: INR: 07/10/24 03:14 14.3 1.1 07/09/24 14:00 16.4 28 1.3 12/14/24 04:03 12.8 27 1.0 Pertinent Imaging: Reviewed in Power Chart IMPRESSION: Georges Pollock is a 69yoM with PMH morbid obesity, hld, diabetes who [facility], foundto have NSTEMI with multi-vessel stenosis, transferred [place] [facility] [place] cardiac surgery management and is now s/p CABG x [address] Cortez on 07/09. Hospital course complicated by postopertive cardiogenic shock requiring pressors, weaned off 07/10,uncontrolled DM requiring insulin gtt Demonstrating impairments inendurance, strength, ADLs Recommendations: #Debility 2/2 CABGx3 on 07/09 #CAD - ASA 81mg daily - Dispo:Recommend IRF.The patient's PLOF was independent for adls and mobility. Currently, the patient is demonstrating deficits in the above. Pt would benefit from acute intensive rehabilitationto include PT, OT, for 3h/day, 5d/week. Pt requires 24h nursing and physician oversight for _(neuromuscular reeducation, BP/HR monitoring, hyperglycemia monitoring, bowel/bladder management, management and monitoring of multiple new medications, physician wound monitoring, ataxia, motor planning,endurance, strength, balance, adls, mobility, education, safety, transfers, dm mgmt, disease management and family training). - Goal is to return home. Family is supportive and would benefit from the [facility] program. - Anticipate current functional deficits will improve with intensive therapy within the prescribed period of time. - Expected level of improvement:Functional independence in home setting. - ELOS: _10-14 days - sternal precautions #Pain- acute nociceptive, chronic neuropathic - Tylenol 1g q8SCH, lyrica 7mg bid; prn: flexeril 5mg tid (not using),Oxycodone 5/10 q4H PRN #Bowel - Colace 100mg BID,Dulcolax 10mg qD suppository given 07/11, miralax daily #Bladder - Flomax 0.4mg qD -voiding volitionally #DVT ppx Heparin subq Irene Medellin, DO PM&R PGY-3 Resident [facility] Teaching Physician Attestation: I performed a history and physical examination of the patient and discussed the management with theresident/fellow. I visualized new imaging and new labwork. I reviewed the residents note and agree with the documented findings and plan of care. I have edited the note above.Evaluated patient on 07/12. Of note, has down trending Na, 131 today. Phos 1.9. Patient notes extensive family hx of cardiac issues. Will likely require IRF once medically stable. Family and patient on board. [place]. Jes Abbott DO. Consult Director Chief Estimator Department of Physical Medicine and Rehabilitation Electronic Signature on File Electronically Reviewed/Signed by: Irene Medellin DO Author Signature Dt/Tm:07/11/2024 02:06 PM Resident Department of Physical Medicine & Rehabilitation Electronically Reviewed/Signed by: Jes Abbott DO Cosigner Signature Dt/Tm: 07/12/2024 11:07 AM Department of Physical Medicine & Rehabilitation [place] .D/C Summary * KEISHA Pagan, Shannan Dorado: PERFORM Event Display: .D/C Summary Authored Date: [id number] [facility] For medical concerns, call: . Address: [address] [place] [address] [place] [id number] (MOBILE) :1955 . Date of Admission:07/06/2024 Date of Discharge:07/23/2024 Physician:MD Dana, [facility] Service:Cardiac Surgery Discharge Disposition:Home with home health services Primary Care Provider/Phone: MD VILLARREAL DARREN MICHAEL (BUSINESS) [phone] (FAX BUSINESS) Principal Diagnosis: History of morbid obesity Other Diagnoses: Coronary artery disease Hypotension S/P CABG (coronary artery bypass graft) Major Tests and Procedures: CABG x3 (CASEY-LAD, SVG-OM2, SVG-Ramus) 07/09/2024 Brief History of Present Illness: 69-year-old male with morbid obesity (BMI >50) uncontrolled hyperlipidemia (LDL 157), diabetes(on pioglitazone) and family history of MIs presented to [facility] with chest pain.His last troponin value I can see in the records sent over was 150s. Coronary angiography showed prox LAD with 80% stenosis and severe calcification, 80% mid-LAD stenosis, 90% distal LAD stenosis. LCx had a 90% stenosis just prior to OM1 branching. Large Ramus has a 90% stenosis, RCA has a 90% mid-RCA stenosis and 70% distal RCA stenosis. They were unable to cross the aortic valve and there was concern for aortic stenosis. Patient was symptom free. TTE showed mildly reduced LVEF 45% but was technically challenging given his habitus. Aortic peak velocity was reported at 2.6 m/s with an LVOT peak velocity of 1.7 m/s. None of these images are transferred with the patient and not pushed to PACs. Hospital Course: Mr. Pollock is a 69-year-old male with past medical history significant for morbid obesity (BMI 51), HTN, HLD, and NIDDM2 (Hgb A1c 6.8%) who was transferred from [facility] with newly diagnosed multivessel CADfor which he underwentCABG x3 (CASEY- LAD, SVG-OM2, SVG-Ramus) by Dana Luna on 07/09/2024. Patient was extubated, vasoactive medicationswere weaned off appropriately and patient was downgraded to IMC status. The patients activity and diet were advanced. Medications were titrated appropriately and oxygen was weaned off. Please see outline of hospital course below. 07/09: CABG x3 (CASEY-LAD, SVG-OM2, SVG-Ramus); post op GAYLE: EF 60-65%, RV dilated low normal function, mod (MAMADOU 1.4), trace-mild MR & TR 07/10: weaned pressors. 07/11: Downgraded to IMC. Pleural tubes discontinued. PM&R consulted. 07/12:dc pleurals, meds, wires.gentlelasix.start bb 07/13:dccts. titrate bb.legjp remain 07/14-07/18:leg luis remain 07/19: luis removed from leg. PT/OTreconsulted forrehabreferral 07/20: rehab pending auth.attempted to call for [id number] multiple times, no response. sutures removed 07/21:attempted to call for [id number] multiple times, no response 07/22: p2p declined. Family to submit appeal 07/23: Patient and family feel as if they can manage at home with home health. Patient appears dry.Will send home without lasix.They have been advised to call if he notices swelling in his legs. Patient was seen by PT, OT, and Tappet Adjuster and was discharged on07/23 [facility]. Referral to cardiac rehab was placed. On day of discharge, patient was hemodynamically stable. Denied significant chest pain or shortness of breath. Incision appeared to be healing well. Pain controlled with oralmedications only. Discharge discussed with attending who was in agreement. They were provided with education on wound care, diet, medication changes, and activity restrictions.Referral to cardiac rehab was placed. We thank you for the opportunity to participate in the care of your patient. Please do not hesitateto contact us with any questions. Sincerely, [facility] Cardiac Surgery Service Exam on Discharge: Vitals & Measurements: T:36.0C TMIN:36.0C TMAX:36.3C HR:100(Monitored) RR:20 BP:128/76 SpO2:90% Oxygen Therapy:Room Air WT:154.3kg BMI:51.21 kg/m2 General: AAO x 3, no acute distress. pleasant and conversational Lung: aerating well on room air, respirations unlabored CV: NSR w/ rate in the 90's. BP appropriate, hemodynamically stable GI: soft, non-tender, non-distended. (+)BM, reports passing gas Extremities: +1 LE edema bilaterally,moves all extremities.clean bandages over blistering to leftleg. leg drain site without drainage, open to air Incisions: midline sternal incision healing appropriately, skin edges well approximated. no Prineo dressing/Dermabond in place Discharge Medications: 1.Betamethasone-clotrimazole topical (betamethasone-clotrimazole 0.05%-1% topical cream) 1 appl topically 2 times daily. 2.Pioglitazone (pioglitazone 45 mg oral tablet) 45 mg (1 tab) by mouth once daily. 3.Montelukast (montelukast 10 mg oral tablet) 10 mg (1 tab) by mouth every evening. 4.Tamsulosin 0.4 mg by mouth once daily. 5.Clopidogrel (Plavix 75 mg oral tablet) 75 mg (1 tab) by mouth once daily. 6.Ezetimibe (Zetia 10 mg oral tablet) 10 mg (1 tab) by mouth once daily. 7.Aspirin (aspirin 81 mg oral delayed release tablet) 81 mg (1 tab) by mouth once daily. 8.Metoprolol (metoprolol tartrate 50 mg oral tablet) 50 mg (1 tab) by mouth 2 times daily. 9.Pantoprazole (Protonix 40 mg oral delayed release tablet) 40 mg (1 tab) by mouth every 24 hours. 10.Cyclobenzaprine (cyclobenzaprine 5 mg oral tablet) 5 mg (1 tab) by mouth 3 times daily, as needed for spasms. Allergies and Sensitivities: Statins (HMG-CoA reductase inhibitors)unable to walk, muscles cramping levoFLOXacintongue swelling, anaphylaxis penicillinunknown sulfa drugsunknown Tests Pending: Extra Blue Extra Green (Shopiere Heparin) To obtain results pending at hospital discharge, call and ask for the following Physician:MD Dana, Kartik Scheduled Appointments: Date/Time:Provider/Resource: Jul 10:00 KEISHA Headley, Ariela Casiano Location/Instructions:[facility] [place] - Specialties, Entrance A, [address] [place] [address]. This appointment time has been reserved for your appointment. If you need to cancel or reschedule your visit call . Please arrive 15 minutesearlier than your appointment for check in process. Other Appointments: Follow Up MD Phuong, Zach Fernandez Where:[facility] [address] [place] [address]- Post Op Appts PRIMARY CARE07/29/24 @ 2:00p Dr. Villarreal, [facility] [phone] CARDIOLOGY10/21/24 @ 2:00p Dr. Nicholas, [facility] Cardiology [phone] Discharge Services: Service: Organization: Business Address: Phone Number: [facility] [address], [place], [address] . Advance Directive:None I personally spent30 minutes in discharge planning. Electronic Signature on File Electronically Reviewed/Signed by: Shannan Pagan PA-C Author Signature Dt/Tm:07/23/2024 09:21 AM Cardiothoracic Surgery Electronically Reviewed/Signed by: Kartik Cortez MD Cosigner Signature Dt/Tm: 07/23/2024 10:11 AM Division of Cardiothoracic Surgery [facility] Discharge instructions * KEISHA Pagan, Shannan Dorado: PERFORM KEISHA Pagan Danielle Kerrin: PERFORM Event Display: Patient Discharge Instructions Authored Date: [id number] KIAN GEORGES :1955 Visit Date:07/06/2024 Patient Discharge Instructions [facility] For medical concerns, call: . Date of Admission:07/06/2024 Date of Discharge:07/23/2024 Physician:MD Cortez Kentaro Service:Cardiac Surgery Discharge Disposition:Home . Advance Directive:None Reason for Hospitalization History of morbid obesity Your Diagnoses History of morbid obesity Coronary artery disease Hypotension S/P CABG (coronary artery bypass graft) My Health Patient Portal: [employer] makes it easy for you to manage your health information online. My [facility] WooMe is a free service that provides you instant, secure access to your medical information anytime, anywhere. Sign in or set up your account today at [email or web address] Thank you for allowing us to assist you with your healthcare needs. If you need additional community resources, NANCY Ralph can help at https://www.nancy211.org. 211 can assist you in connecting with social programs based on your unique needs and locations. 211 is an anonymous search that can help you locate resources for: Food, Housing, Transportation, Goods, Education and Healthcare. Medications Patient is enrolled in Rx-to-Go Program New medications will be delivered from [facility] to patient's room at discharge: Mon-Sun from 9AM-5 PM. Medications MUST be PICKED UP at [facility] if patient is discharged Mon-Sun after 5 PM or anytime on holidays. Please note, the [facility] closes at 8 PM on week and 5:30 PM on Saturdays, Sundays, and holidays. What How Much When Instructions Next Dose New aspirin (aspirin 81 mg oral delayed release tablet) 1 tab(s) by mouth Once daily Duration: 30 Days Refills: 1 Pickup at [facility] 07/24/24 AM New clopidogrel (Plavix 75 mg oral tablet) 1 tab(s) by mouth Once daily Duration: 30 Days Refills: 1 Pickup at [facility] 07/24/24 AM New cyclobenzaprine (cyclobenzaprine 5 mg oral tablet) 1 tab(s) by mouth 3 times daily as needed for spasms Duration: 3 Days Pickup at [facility] New ezetimibe (Zetia 10 mg oral tablet) 1 tab(s) by mouth Once daily Duration: 30 Days Refills: 1 Pickup at [facility] 07/24/24 AM New metoprolol (metoprolol tartrate 50 mg oral tablet) 1 tab(s) by mouth 2 times daily Duration: 30 Days Refills: 1 Pickup at [facility] 07/23/2024 New pantoprazole (Protonix 40 mg oral delayed release tablet) 1 tab(s) by mouth Every 24 hours Duration: 30 Days Pickup at [facility] 07/24/24 AM Unchanged betamethasone-clotrimazole topical (betamethasone-clotrimazole 0.05%- 1% topical cream) 1 judi topically 2 times daily Unchanged montelukast (montelukast 10 mg oral tablet) 1 tab(s) by mouth Every evening Unchanged pioglitazone (pioglitazone 45 mg oral tablet) 1 tab(s) by mouth Once daily 07/24/24 AM Unchanged tamsulosin 0.4 Milligram by mouth Once daily 07/24/24 AM Pharmacy Information [facility] [place]: [address] [place] [address] NANCY Stuart [phone] What How Much When Comments Stop Taking atenolol 100 Milligram by mouth Once daily Stop Taking furosemide (Lasix 20 mg oral tablet) 1 tab(s) by mouth Once daily Stop Taking hydroCHLOROthiazide (hydroCHLOROthiazide 25 mg oral tablet) 0.5 tab(s) by mouth Once daily Stop Taking irbesartan 150 Milligram by mouth Once daily Allergies Statins (HMG-CoA reductase inhibitors)unable to walk, muscles cramping levoFLOXacintongue swelling, anaphylaxis penicillinunknown sulfa drugsunknown What to do next Instructions From Your Doctor For fevers (higher than 101F), chills, shortness of breath, chest pain, or any pain not relievedby prescribed medication, seek urgent evaluation and call the [facility] Surgery office at [phone]. Ifit is after-hours, weekends or holidays, please call [phone] to have the cardiothoracic surgery residential team leader on-call paged. For any scheduling questions, call [phone]. If you notice warmth, redness, swelling,incision opening,or drainage around your incision, seekurgent evaluation and call the CT Surgery office at [phone] during business hours. For after-hours, weekends or holidays, call [phone]. Continue using your incentive spirometer for at least 1 to 2 weeks after discharge date to prevent pneumonia. Walking is encouraged. Use your walking assistive device if needed. Walking will help prevent clotsforming in your legs. No driving, nolifting/pushing/pulling more than 5-10pounds(about a gallon of milk) for 4-6 weeks, or until cleared by your surgeon.After the initial 4-6 weeks, no lifting anything more than 15-20 pounds for the next 6 weeks. Take medications as prescribed. Please call the CT Surgery office if you have any questions regarding your medications ([phone]). Refill requests on medications are to be sent to your primary care physician or your clinical consultant.Your prescription refills were sent to [facility], and if you would like them transferred to your local pharmacy please have you local pharmacy call [phone] for transfer assistance. If you were discharge on Coumadin, you will have an appointment with the Coumadin Clinic ([phone]), or your clinical consultant, for an INR check. It is very important to keep this appointment. *Please check your blood pressure twice daily and record the values in a log book. *Please check your weight daily and record the values in a log book. If you gain more than 2lbs in one day, or 3-5lbs in one week, call thesurgeryoffice immediately([phone]). *Bring your log book with daily weights and blood pressure measurements with you to clinic appointments. Other reasons to call the surgery office: ([phone]) -Persistent cough with sputum -Increased swelling of legs and feet not relieved with elevation -Worsening shortness of breath whilewalking, lying flat or talking -Any concerns or questions -Always call 911 or go the Emergency room if you are concerned and cannot reach anyone in a physicians office. Call 911 or go to the Emergency Room immediately if: -Chest pain similar to your chest pain before surgery -Heart beat faster than 110 beats per minute for greater than 20 minutes -Fainting spell -Sudden severe headache -Coughing up bright red blood -Darkorblackstickystools(bowel movement) -Shortnessof breath not relieved by rest -Severe abdominal pain -Any other health issues for which you are concerned Call your Primary Care Physician for: -Burning withurination or urinary frequency -Skin rash -Sore throat Be aware that depression and mild fatigue is common after heart surgeryand you will likely experience a slow recovery of your energy level. Caring for Your Incision Your incisions may itch or feel sore, tight, or numb for a few weeks. These are all normal signs ofhealing. Some bruising around the incisions is also normal. To care for your incisions: Wash them gently with warm water and a mild soap.Keep your back to the water stream as much as possible. Do not scrub incision sites and pat dry.Don't soak the incisions or keep them in watersuchas in a bathtub, hot tub, or pooluntil cleared by your surgeon. -Leave incisions open to air. It is ok to place a small bandage on the incisions if there is small drainage. If you have a Prinio dressing in place, it is ok to shower as normal. The dressing will beevaluated at your next appointment. To help prevent infection, don't use any lotions or creams, including Neosporin,near the incisions unless your healthcare provider tells you to do so. -Females should wear a bra to avoid stress on the incision. Keep a washcloth or gauze on incision where the bra lays. This will help keep the incision dry. Wounds breakdown when they are moist. -If you have av or sutures in place, these will be removed at your post- operative appointment. Reaching, Bending, and Lifting Moving carefully During your first few weeks at home, you need to move carefully. This is because your breastbone (sternum) was cut during surgery. The bone takes about 4 to 6 weeks to grow back together. It won't come apart if you move the wrong way, but you may feel pain around the incisions or hear a clicking sound in your chest. These are warning signs to move more carefully. Follow the tips below. Reaching Until your breastbone heals, twisting your upper body can be painful. When you reach for something,follow these steps: Turn with your entire body so that you face the object. Step close to it. Lean forward from the waist to pick it up. Bending and lifting For the first few weeks, keep the things you use most, such as clothing and dishes, at waist level.If you must bend down to lift something light, follow these steps: Stand close to the object. Put your feet shoulder-width apart, with one foot slightly in front of the other. Hold on to something sturdy with one hand. Bend at the knees. Keep your back and neck straight and your shoulders and hips in line. site superintendent the object and hold it close to your body. Slowly push up with your legs. If you need anything that weighs more than 5 to 10 pounds or that is on the floor, ask someone to get it for you. Prevent Swelling in Your Legs After surgery, it's common for your legs to swell a little. To control the swelling: Get up once an hour and walk around for a few minutes. When you sit or lie down, put your feet on a footrest or on the arm of the couch. Your feet should be raised above the level of your heart. You can support your lower legs with pillows. Your doctor may also want you to wear elastic compression stockings during the day. Take them off at night to sleep. Get plenty of rest Getting plenty of rest will help you get your strength back faster. Try to get a good night's sleep. It helps to go to bed at the same time each night. Don't get anxious if you can't sleep through an entire night. Your sleeping patterns will become more normal with time and as your recovery continues.You may also feel more comfortable sleeping in a different position or a recliner as you recover. Try to avoid sleeping on your side until the breastbone heals. Stop and rest for a few minutes after each activity and whenever you feel tired. You can nap or just relax. Driving and Social Activities As you feel stronger, you can go out and do more. At first, keep activities to about an hour. And remember that it's OK to leave early or ask visitors to go home so you can rest. For your own safety and the safety of others,NO drivingfor 4-6 weeks, or while taking pain medications, oruntil your doctor says you can. There are several reasons for this: Your reaction time is slower until you regain your strength. The medicines you take, along with sharp pain from sudden movements,may also slow your reaction time. If you were to be in a crash, hitting the steering wheel could damage your breastbone. Eating healthy Eat a heart healthy diet, or carb controlled diet if you are diabetic.Limit how much salt you get.You do not have to change your diet completely in one day. Make small changes over time to reach your goal. You need calories to heal from your surgery. Eat small meals more often if you don't have a good appetite when you go home.It is normal to not have much of an appetite after surgery. Appetite will return as you heal. After Surgery: Visits with Your Healthcare Team After your surgery, you'll have regular follow-up visits with your healthcare team. Expect to schedule: A visit with the surgeon to check your incisions A visit with theCardiologist (heart doctor)to check your health and adjust your medicines [facility] to check your overall health and diabetes. Your prescription refills were sent to [facility], and if you would likethem transferred to your local pharmacy please have you local pharmacy call [phone] for transfer assistance. After Surgery: Your Role in Recovery Much of your recovery is up to you. Your doctor and other healthcare providers are there to help. But you need to care for your body and slowly rebuild your strength. That means doing a little more eachday, without pushing yourself too hard. Following the guidelines from yourdoctor can help youremember what to do and what to expect along the road to recovery. Tips to remember During your first few weeks at home, keep these tips in mind: Take your medicines as directed.These are important for your recovery. Call the office if you feel you are having side effects from medications. Call your doctor if you have any sign of a problem, such as fever, increased pain, or drainage from the incision. Move carefully to protect your incision and your breastbone. Pace yourself so you don't feel rushed or get overtired. Exercise 5 days a week. Increase your time and pace slowly. Talk with your family and close friends about how you feel and what you need from them. [id number] [employer]. [address] [place] [address]. All rights reserved. This information is not intended as a substitute for professional medical care. Always follow your healthcare professional's instructions. You were offered a Hepatitis C screening test and you declined. Please follow up with your PCP. If you notice the following symptoms Contact the [facility] Careline at . If unable to contact your physician and you feel it is an emergency, go to the nearest Emergency Room or call 911 Diet Instructions heart healthy Activity Instructions as tolerated with sternal precautions Follow-Up Appointments Scheduled Follow-Up Appointments Date/Time:Provider/Resource: Jul 10:00 KEISHA Headley, Ariela Casiano Location/Instructions:[facility] [place] - Specialties, Entrance A, [address] [place] [address]. This appointment time has been reserved for your appointment. If you need to cancel or reschedule your visit call . Please arrive 15 minutesearlier than your appointment for check in process. You Need to Schedule the Following Appointments Follow Up withMD Phill, Zach Fernandez Where:[facility] [address] [place] [address]- The Following Equipment/Treatments Have Been Ordered for You Post Op Appts PRIMARY CARE07/29/24 @ 2:00p Dr. Villarreal, [facility] [phone] CARDIOLOGY10/21/24 @ 2:00p Dr. Nicholas, [facility] Cardiology [phone] The Following Services Have Been Arranged for You Service: Organization: Business Address: Phone Number: Home Care Physician Services [facility] [address] [place], [address] Tests Pending Extra Blue Extra Green (Shopiere Heparin) To obtain results pending at hospital discharge, call and ask for the following Physician:MD Dana, Kartik Procedures Performed CABG x3 (CASEY-LAD, SVG-OM2, SVG-Ramus) 07/09/2024 Special Instructions Common Emergency Awareness Tips Call 911 immediately if: experiencing any of the warning signs and symptoms of stroke: B.E. F.A.S.T. Balance: is there trouble with walking or coordination Eyes: is there double vision or visual loss Face: Smile, do both sides of face move equally Arm: Raise arms, do both arms move equally Speech: Is speech slurred or inappropriate Time: Time is critical, call 911 immediately Heart Attack Signs Chest discomfort: Most heart attacks involve discomfort in the center of the chest and lasts more than a few minutes, or goes away and comes back. It can feel like uncomfortable pressure, squeezing, fullness or pain. Discomfort in upper body: Symptoms can include pain or discomfort in one or both arms, back, neck, jaw or stomach. Shortness of breath: With or without discomfort. Other signs: Breaking out in a cold sweat, nausea, or lightheaded. Remember, MINUTES DO MATTER. If you experience any of these heart attack warning signs, call to get immediate medical attention! Education Materials Coronary Artery Bypass Grafting, Care After After coronary artery bypass grafting, it is common to feel pain or discomfort around the cuts fromsurgery (incisions). You may also: Have the feeling that you may vomit or a lack of appetite. This means that you may not want to eat. Have trouble pooping (constipation). Have weakness and tiredness (fatigue). Feel very sad (depressed) or grouchy (irritable). Follow these instructions at home: The instructions below may help you care for yourself at home. Your doctor may give you more instructions. If you have questions, ask your doctor. Medicines Take qysu-fnw-gpupsfm and prescription medicines only as told by your doctor. Do not stop taking medicines or start any new medicines unless your doctor says it is okay. If you were prescribed antibiotics, take them as told by your doctor. Do not stop taking them even if you start to feel better. If told, take steps to prevent problems with pooping (constipation). You may need to: Take medicines. You will be told what medicines to take. Eat foods that are high in fiber. These include beans, whole grains, and fresh fruits and vegetables. Limit foods that are high in fat and sugar. These include fried or sweet foods. Ask your doctor if you should avoid driving or using machines while you are taking your medicine. Incision care Follow instructions from your doctor about how to take care of your incision areas. Make sure you: Wash your hands with soap and water for at least 20 seconds before and after you change your bandage. If you cannot use soap and water, use hand watchmaker apprentice. Change your bandage. Leave stitches or skin glue in place for at least 2 weeks. Leave skin tape strips alone unless you are told to take them off. You may trim the edges of the tape strips if they curl up. Make sure your incisions are clean, dry, and protected. Check your incision areas every day for signs of infection. Check for: More redness, swelling, or pain. More fluid or blood. Warmth. Pus or a bad smell. If incisions were made in your leg: Avoid crossing your legs. Avoid sitting for long periods of time. Change positions every 30 minutes. Raise (elevate) your legs when you are sitting. Bathing Do not take baths, swim, or use a hot tub. Ask your doctor about taking showers or sponge baths. Do not put lotions, ointments, or cream on your incision areas unless your doctor tells you to do so. Eating and drinking Eat heart-healthy food. This includes beans, nuts, whole grains, and raw fruits and vegetables. Any meats you eat should be lean cuts. Avoid canned, processed, and fried foods. Drink enough fluid to keep your pee (urine) pale yellow. Ask your doctor how much fluid you should drink. Do not drink alcohol. Ask your doctor when it is safe to drink alcohol. Activity Rest as told by your doctor. You may be told to: Stop any activity right away if you have chest pain, shortness of breath, or fast or irregular heartbeats (palpitations). Get help right away if you have any of these symptoms. Get up to take short walks every 1 to 2 hours. Ask for help if you feel weak or unsteady. Slowly increase your activities. Avoid lifting, pushing, or pulling anything that is heavier than 10 lb (4.5 kg) for at least 6 weeks or as told by your doctor. Do physical therapy or a cardiac rehab (cardiac rehabilitation) program as told by your doctor. For physical therapy, you do exercises that: Help your joints to move freely. Make your muscles and bones strong. Build your endurance. This is your ability to do everyday work without getting tired very easily. For cardiac rehab, your doctor teaches you: How to exercise to make your heart strong. How to make lifestyle changes that help your heart, such as healthy eating and quitting smoking. How to reduce stress in your life. Do not drive until your doctor says it is okay. Ask your doctor when you can go back to work. Ask your doctor when you can have sex again. General instructions Wear a medical alert bracelet or carry a card that lists what medicines you take. Do not smoke or use any products that contain nicotine or tobacco. If you need help quitting, ask your doctor. Take 23 deep breaths every few hours during the day. This helps expand your lungs and prevent problems. If you were given a device called an incentive spirometer, use it several times a day to practice deep breathing. Support your chest with a pillow or your arms when you take deep breaths or cough. Wear compression stockings as told by your doctor. Weigh yourself every day. This helps to see if your body is holding fluid that may make your heart and lungs work harder. Keep all follow-up visits. Your doctor will check how well you are healing and if your grafts are working properly. Contact a doctor if: You have signs of infection at your incision areas. You have a fever. You have swelling in your ankles or legs. You have pain in your legs. You gain 2 lb (0.9 kg) or more a day. You cannot stop vomiting or you have watery poop (diarrhea). You feel confused or you have dizziness. You notice a "clicking" in your breastbone (sternum) when you move. Get help right away if: You have chest pain that goes to your jaw or arms. You have a fast or irregular heartbeat. You are short of breath. You have any signs of a stroke. "BE FAST" is an easy way to remember the main warning signs: B - Balance. Signs are dizziness, sudden trouble walking, or loss of balance. E - Eyes. Signs are trouble seeing or a change in how you see. F - Face. Signs are sudden weakness or loss of feeling of the face, or the face or eyelid drooping on one side. A - Arms. Signs are weakness or loss of feeling in an arm. This happens suddenly and usually on oneside of the body. S - Speech. Signs are sudden trouble speaking, slurred speech, or trouble understanding what peoplesay. T - Time. Time to call emergency services. Write down what time symptoms started. You have other signs of a stroke, such as: A sudden, very bad headache with no known cause. Feeling sick to your stomach or vomiting. Jerky movements you cannot control (seizure). These symptoms may be an emergency. Get help right away. Call 911. Do not wait to see if the symptoms will go away. Do not drive yourself to the hospital. This information is not intended to replace advice given to you by your health care provider. Make sure you discuss any questions you have with your health care provider. Document Revised: 01/04/2023 Document Reviewed: 01/04/2023 [employer] Patient Education 2023 [employer]. Surgical Aortic Valve Replacement The aortic valve is a valve that lies between the left ventricle and the aorta. It opens to allow blood to flow from the heart to the rest of the body. If your valve is not working properly, you may need a procedure to replace it with an artificial (prosthetic) valve. This procedure is called surgical aortic valve replacement, or SAVR. You may have this procedure if: You have a narrowed valve (aortic valve stenosis). You have a deformed valve (bicuspid aortic valve). You have a leaking valve (aortic insufficiency). You have heart damage from an infection (endocarditis). During this procedure, your health care provider will replace your valve with one of these three types of prosthetic valves: Mechanical valves, which are made from man-made materials. Donor valves, which are from human donors. These are only used in special situations. Biological valves, which are made from animal tissues. Tell a health care provider about: Any allergies you have. All medicines you are taking, including vitamins, herbs, eye drops, creams, and vovm-nis-eifdgqq medicines. Any problems you or family members have had with anesthetic medicines. Any bleeding problems you have. Any surgeries you have had. Any medical conditions you have. Whether you are or may be . What are the risks? Generally, this is a safe procedure. However, problems may occur, including: Infection. Bleeding. Allergic reactions to medicines. Damage to other structures or organs. Blood clotting caused by the prosthetic valve. Failure of the prosthetic valve. Other risks include: Abnormal heart rhythms. Need for pacemaker. Stroke. . What happens before the procedure? When to stop eating and drinking Follow instructions from your health care provider about what you may eat and drink. These may include: 8 hours before your procedure Stop eating most foods. Do not eat meat, fried foods, or fatty foods. Eat only light foods, such as toast or crackers. All liquids are okay except energy drinks and alcohol. 6 hours before your procedure Stop eating. Drink only clear liquids, such as water, clear fruit juice, black coffee, plain tea, and sports drinks. Do not drink energy drinks or alcohol. 2 hours before your procedure Stop drinking all liquids. You may be allowed to take medicines with small sips of water. If you do not follow your health care provider's instructions, your procedure may be delayed or canceled. Medicines Ask your health care provider about: Changing or stopping your regular medicines. These include any diabetes medicines or blood thinnersyou take. Taking medicines such as aspirin and ibuprofen. These medicines can thin your blood. Do not take these medicines unless your health care provider tells you to take them. Taking ahjc-hnn-yxwqrmj medicines, vitamins, herbs, and supplements. You will be told about lifelong use of blood thinners (anticoagulants). It is important to understand the importance of taking these medicines, especially if you have a mechanical prosthesis. Tests You may have tests to examine your heart, such as: Echocardiogram. Cardiac catheterization. Cardiac MRI. Cardiac stress test. Other tests may include: Electrocardiogram (ECG). Carotid ultrasound. X-ray. Blood or urine tests. General instructions You will be asked to obtain "valve surgery clearance" from your dentist. This is to make sure that you do not have a collection of germs (abscess) in your mouth that can cause an infection of the newaortic prosthesis. Do not use any products that contain nicotine or tobacco for at least 4 weeks before the procedure.These products include cigarettes, chewing tobacco, and vaping devices, such as e-cigarettes. If you need help quitting, ask your health care provider. Ask your health care provider: How your surgery site will be marked. What steps will be taken to help prevent infection. These steps may include: Removing hair at the surgery site. Washing skin with a germ-killing soap. Taking antibiotic medicine. What happens during the procedure? An IV will be inserted into one of your veins. You may be given: A sedative. This helps you relax. Anesthesia. This will: Numb certain areas of your body. Make you fall asleep for surgery. An incision will be made in your chest, over your heart. This is an open heart surgery. You will be placed on a heart-lung bypass machine. This machine will provide oxygen to your body while your heart is undergoing surgery. Your damaged aortic valve will be completely removed. A prosthetic valve will be sewn into your heart. Your incision will be closed with stitches (sutures), skin glue, or adhesive tape. A bandage (dressing) will be placed over your incision. The procedure may vary among health care providers and hospitals. What happens after the procedure? Your blood pressure, heart rate, breathing rate, and blood oxygen level will be monitored closely in the intensive care unit. Before you leave the hospital, your new prosthetic valve will be checked with an echocardiogram. Summary If your aortic valve is not working properly, you may need a procedure to replace it with an artificial (prosthetic) valve. This is a safe procedure. However, there are risks, such as bleeding, infection, allergic reaction to medicines, blood clots, failure of the new valve, or stroke. Follow all instructions before the procedure. These include getting clearance from a dentist, eating and drinking restrictions, and stopping smoking. Your health care provider will perform the procedure using open heart surgery. This information is not intended to replace advice given to you by your health care provider. Make sure you discuss any questions you have with your health care provider. Document Revised: 08/28/2022 Document Reviewed: 08/28/2022 [employer] Patient Education 2023 [employer] Aortic Valve Stenosis Aortic valve stenosis is a narrowing of the aortic valve in the heart. The aortic valve opens and closes to regulate blood flow between the left side of the heart (left ventricle) and the artery thatleads away from the heart (aorta). When the aortic valve becomes narrow, it is difficult for the heart to pump blood out to the body, which causes the heart to work harder. The extra work can weaken the heart muscle over time. Aortic valve stenosis can range from mild to severe. If it is not treated, it can become more severe over time and lead to heart failure. What are the causes? This condition may be caused by: Buildup of calcium around and on the aortic valve. This can occur with aging. This is the most common cause of aortic valve stenosis. A heart problem that developed in the womb ( defect). Rheumatic fever. Radiation to the chest. What increases the risk? You are more likely to develop this condition if: You are 65 years and older. You were born with an abnormal bicuspid valve. What are the signs or symptoms? You may not have any symptoms until your condition becomes severe. It may take 1020 years for mild or moderate aortic valve stenosis to become severe. Symptoms may include: Shortness of breath. This may get worse during physical activity. Feeling unusually weak and tired (fatigue). Extreme discomfort in the chest, neck, or arm during physical activity (angina). A heartbeat that is irregular or faster than normal (palpitations). Dizziness or fainting. This may happen when you get tired or after you take certain heart medicines, such as nitroglycerin. How is this diagnosed? This condition may be diagnosed with: A physical exam. Echocardiogram. This is a type of imaging test that uses sound waves (ultrasound) to make images ofyour heart. There are two kinds of this test that may be used. Transthoracic echocardiogram (TTE). For this type, a wand-like tool (transducer) is moved over yourchest to create ultrasound images that are recorded by a computer. Transesophageal echocardiogram (GAYLE). For this type, a flexible tube (probe) is inserted down the part of the body that moves food from your mouth to your stomach (esophagus). The heart and the esophagus are close to each other. Your health care provider will use the probe to take clear, detailed pictures of the heart. Cardiac catheterization. For this procedure, a small, thin tube (catheter) is passed through a large vein in your neck, groin, or arm. The catheter is used to get information about arteries, structures, blood pressure, and oxygen levels in your heart. Exercise stress tests. These are tests that check the blood supply to your heart and your heart's response to exercise. These tests help determine the severity of your condition. Cardiac magnetic resonance imaging (MRI). This test uses magnetic packer and radio waves to create detailed images of your heart. It is used to look at the size of your aorta. Computed tomography, or CT scan. This is a test that uses a series of X-rays and a computer to produce a 3D image of the heart. This test may be used to measure the size of your aorta and look at your aortic valve more closely. You may work with a health care provider who specializes in the heart (clinical consultant) for diagnosis and treatment. How is this treated? Treatment depends on how severe your condition is and what your symptoms are. You will need to haveyour heart checked regularly to make sure that your condition is not getting worse or causing serious problems. Treatment may include: Surgery to replace your aortic valve. This is the most common treatment for aortic valve stenosis, and it is the only treatment to cure the condition. Several types of surgeries are available. The surgery may be done: Through a large incision over your heart (open-heart surgery). Through small incisions, using a flexible tube called a catheter (transcatheter aortic valve replacement, TAVR). Medicines that help to keep your heart rate regular. Medicines that thin your blood (anticoagulants) to prevent blood clots. Antibiotic medicines to help prevent infection. If your condition is mild, you may only need regular follow-up visits for monitoring. Follow these instructions at home: Lifestyle If you drink alcohol: Limit how much you have to: 01 drink a day for women. 02 drinks a day for men. Know how much alcohol is in your drink. In the [place] one drink equals one 12 oz bottle of beer (355mL), one 5 oz glass of wine (148 mL), or one 1 oz glass of hard liquor (44 mL). Do not use any products that contain nicotine or tobacco. These products include cigarettes, chewing tobacco, and vaping devices, such as e-cigarettes. If you need help quitting, ask your health careprovider. Work with your health care provider to manage your blood pressure and cholesterol. Maintain a healthy weight. Eating and drinking Follow instructions from your health care provider about eating or drinking restrictions. You may be told to: Eat a heart-healthy diet that includes plenty of fresh fruits and vegetables, whole grains, lean protein, and low-fat or nonfat dairy. Limit how much caffeine you drink. Caffeine can affect your heart's rate and rhythm. Avoid certain foods, including: Foods that are high in salt (sodium), saturated fat, or sugar. Canned or highly processed food. Fried foods. Activity Exercise regularly. If your aortic valve stenosis is mild, you may only need to avoid very intense physical activity, such as heavy weight lifting. The more severe your aortic valve stenosis is, the more activities you may need to avoid. Return to your normal activities as told by your health care provider. Ask your health care provider what amount and type of physical activity is safe for you. If you are taking blood thinners: Talk with your health care provider before you take any medicines that contain aspirin or NSAIDs, such as ibuprofen. These medicines increase your risk for dangerous bleeding. Take your medicine exactly as told, at the same time every day. Avoid activities that could cause injury or bruising. Follow instructions about how to prevent falls. Wear a medical alert bracelet or carry a card that lists what medicines you take. General instructions Take gfjw-tvf-ugcrxzx and prescription medicines only as told by your health care provider. If you were prescribed an antibiotic, take it as told by your health care provider. Do not stop taking the antibiotic even if you start to feel better. If you are a woman and you plan to become , talk with your health care provider before you become . Before you have any type of medical or dental procedure or surgery, tell all health care providers that you have aortic valve stenosis. This may affect treatment that you receive. Keep all follow-up visits. This is important. Contact a health care provider if: You have a fever. Get help right away if: You develop any of the following symptoms: Chest pain. Chest tightness. Shortness of breath. You feel light-headed. You feel like you might faint. Your heartbeat is irregular or faster than normal. These symptoms may be an emergency. Get help right away. Call 911. Do not wait to see if the symptoms will go away. Do not drive yourself to the hospital. Summary Aortic valve stenosis is a narrowing of the aortic valve in the heart. The aortic valve regulates blood flow between the left ventricle and the aorta. If it is not treated, aortic valve stenosis can lead to heart failure. Treatment depends on how severe your condition is and what your symptoms are. You will need to haveyour heart checked regularly to make sure that your condition is not getting worse or causing serious problems. Exercise regularly. Ask your health care provider what amount and type of physical activity is safefor you. This information is not intended to replace advice given to you by your health care provider. Make sure you discuss any questions you have with your health care provider. Document Revised: 04/10/2022 Document Reviewed: 04/10/2022 [employer] Patient Education 2023 [employer] Aortic Valve Regurgitation Aortic valve regurgitation is a condition that happens when the aortic valve does not close all theway. The aortic valve is a gate-like structure between the lower left chamber of the heart (left ventricle) and the main blood vessel that supplies blood to the rest of the body (aorta). The aortic valve opens when the left ventricle squeezes to pump blood into the aorta, and it closes when the left ventricle relaxes. In aortic valve regurgitation, which may also be called aortic insufficiency, blood in the aorta leaks through the aortic valve after it has closed. This causes the heart to work harder than usual. If aortic valve regurgitation is not treated, it causes enlargement and weakening of the left ventricle. This can result in heart failure, abnormal heart rhythms (arrhythmias), and other dangerous conditions. If this condition develops suddenly, it may need to be treated with emergency surgery. What are the causes? This condition may be caused by anything that weakens the aortic valve, such as: Severe high blood pressure (hypertension). Infections, such as: Syphilis. Infection of the inner lining of the heart or the heart valves (endocarditis). Rheumatic fever, which is an inflammatory condition that can develop after an untreated strep throat infection. A ballooning of a weak spot in the aorta wall (aortic aneurysm). A tear or separation of the inner trujillo of the aorta (aortic dissection). Injury or trauma that damages the aortic valve. Certain medicines. Disease of a protein in the body called collagen (collagen vascular disease). A heart problem called bicuspid aortic valve. This problem is present at (congenital). What are the signs or symptoms? Symptoms of this condition include: Tiredness (fatigue). Shortness of breath. Difficulty breathing while lying flat (orthopnea). You may need to sleep on two or more pillows to breathe better. Chest discomfort (angina). Head bobbing. A fluttering feeling in the chest. An irregular or gwqvtr-uslg-txamtt heartbeat (palpitations). Symptoms usually develop gradually, unless this condition was caused by a major injury or by endocarditis. How is this diagnosed? This condition is diagnosed based on: A physical exam. A test that creates ultrasound images of the heart (echocardiogram). This test allows your health care provider to see how the heart valves work while your heart is beating. You may also have other tests to confirm the diagnosis, including: Chest X-ray. MRI. A test that records the electrical impulses of the heart (electrocardiogram, ECG). CT angiogram (CTA). In this procedure, a large X-ray machine, called a CT scanner, takes detailed pictures of blood vessels after dye has been injected into the vessels. Aortic angiogram. In this procedure, X-ray images are taken after dye has been injected into blood vessels. This tests the function of the aorta. How is this treated? Treatment depends on your symptoms, how severe the condition is, and what problems the condition iscausing. Treatment may include: Observation. If your condition is mild, you may not need treatment. However, you will need to have your condition checked regularly to make sure it is not getting worse or causing serious problems. Medicines that help the heart work more efficiently. Surgery to repair or replace the valve, in severe cases. Surgery is usually recommended if the leftventricle enlarges beyond a certain point. If aortic valve regurgitation occurs suddenly, surgery may be needed right away. Follow these instructions at home: Eating and drinking Follow instructions from your health care provider about eating or drinking restrictions. Your health care provider may recommend that you: Eat foods that are high in fiber, such as beans, whole grains, and fresh fruits and vegetables. Eat a low-salt (low-sodium) diet. Check ingredients and nutrition facts on packaged foods and beverages. If you drink alcohol: Limit how much you have to: 01 drink a day for women who are not . 02 drinks a day for men. Know how much alcohol is in a drink. In the [place] one drink equals one 12 oz bottle of beer (355 mL), one 5 oz glass of wine (148 mL), or one 1 oz glass of hard liquor (44 mL). General instructions Take lwus-xsv-bxiwsnt and prescription medicines only as told by your health care provider. Do not use any products that contain nicotine or tobacco. These products include cigarettes, chewing tobacco, and vaping devices, such as e-cigarettes. If you need help quitting, ask your health careprovider. If directed by your health care provider, avoid heavy weight lifting and contact sports such as football. Keep all follow-up visits. This is important. You may need regular tests to monitor your condition and check how well your heart is pumping blood. Contact a health care provider if: Your angina symptoms are more frequent or seem to be getting worse. Your breathing problems seem to be getting worse. You feel dizzy or close to fainting. You have swelling in your feet, ankles, legs, or abdomen. You urinate more than usual during the night (nocturia). You have an unexplained fever that lasts 2 days or longer. You develop new symptoms. Get help right away if: You have severe chest pain. You have severe shortness of breath. You feel rapid or irregular heartbeats. You feel light-headed or you faint. You have sudden, unexplained weight gain. These symptoms may be an emergency. Get help right away. Call 911. Do not wait to see if the symptoms will go away. Do not drive yourself to the hospital. Summary Aortic valve regurgitation is a condition in which the aortic valve does not close all the way. This causes the heart to work harder than usual. This condition may be treated with observation, medicines, or surgery. Take cjbj-wrz-xxwudot and prescription medicines only as told by your health care provider. Eat a low-salt (low-sodium) diet. Check ingredients and nutrition facts on packaged foods and beverages. Get help right away if you have severe chest pain, shortness of breath, irregular heartbeats, sudden weight gain, or if you feel light-headed or you faint. This information is not intended to replace advice given to you by your health care provider. Make sure you discuss any questions you have with your health care provider. Document Revised: 03/25/2022 Document Reviewed: 03/25/2022 [employer] Patient Education 2023 [employer] High Triglycerides Eating Plan Triglycerides are a type of fat in the blood. High levels of triglycerides can increase your risk of heart disease and stroke. If your triglyceride levels are high, choosing the right foods can help lower your triglycerides and keep your heart healthy. Work with your health care provider or a dietitian to develop an eating plan that is right for you. What are tips for following this plan? General guidelines Lose weight, if you are overweight. For most people, losing 510 lb (25 kg) helps lower triglyceride levels. A weight-loss plan may include: 30 minutes of exercise at least 5 days a week. Reducing the amount of calories, sugar, and fat you eat. Eat a wide variety of fresh fruits, vegetables, and whole grains. These foods are high in fiber. Eat foods that contain healthy fats, such as fatty fish, nuts, seeds, and olive oil. Avoid foods that are high in added sugar, added salt (sodium), and saturated fat. Avoid low-fiber, refined carbohydrates such as white bread, crackers, noodles, and white rice. Avoid foods with trans fats or partially hydrogenated oils, such as fried foods or stick margarine. If you drink alcohol: Limit how much you have to: 01 drink a day for women who are not . 02 drinks a day for men. Your health care provider may recommend that you drink less than these amounts depending on your overall health. Know how much alcohol is in a drink. In the [place] one drink equals one 12 oz bottle of beer (355 mL), one 5 oz glass of wine (148 mL), or one 1 oz glass of hard liquor (44 mL). Reading food labels Check food labels for: The amount of saturated fat. Choose foods with no or very little saturated fat (less than 2 g). The amount of trans fat. Choose foods with no transfat. The amount of cholesterol. Choose foods that are low in cholesterol. The amount of sodium. Choose foods with less than 140 milligrams (mg) per serving. Shopping Buy dairy products labeled as nonfat (skim) or low-fat (1%). Avoid buying processed or prepackaged foods. These are often high in added sugar, sodium, and fat. Cooking Choose healthy fats when cooking, such as olive oil, avocado oil, or canola oil. Cook foods using lower fat methods, such as baking, broiling, boiling, or grilling. Make your own sauces, dressings, and marinades when possible, instead of buying them. Store-bought sauces, dressings, and marinades are often high in sodium and sugar. Meal planning Eat more home-cooked food and less restaurant, buffet, and fast food. Eat fatty fish at least 2 times each week. Examples of fatty fish include salmon, trout, sardines, mackerel, tuna, and grande. If you eat whole eggs, do not eat more than 4 egg yolks per week. What foods should I eat? Fruits All fresh, canned (in natural juice), or frozen fruits. Vegetables Fresh or frozen vegetables. Low-sodium canned vegetables. Grains Whole wheat or whole grain breads, crackers, cereals, and pasta. Unsweetened oatmeal. Bulgur. Barley. Quinoa. Brown rice. Whole wheat flour tortillas. Meats and other proteins Skinless chicken or turkey. Ground chicken or turkey. Lean cuts of pork, trimmed of fat. Fish and seafood, especially salmon, trout, and grande. Egg whites. Dried beans, peas, or lentils. Unsalted nuts or seeds. Unsalted canned beans. Natural peanut or almond butter or other nut butters. Dairy Low-fat dairy products. Skim or low-fat (1%) milk. Reduced fat (2%) and low- sodium cheese. Low-fat ricotta cheese. Low-fat cottage cheese. Plain, low-fat yogurt. Fats and oils Tub margarine without trans fats. Light or reduced-fat mayonnaise. Light or reduced-fat salad dressings. Avocado. Safflower, olive, sunflower, soybean, and canola oils. The items listed above may not be a complete list of recommended foods and beverages. Talk with your dietitian about what dietary choices are best for you. What foods should I avoid? Fruits Sweetened dried fruit. Canned fruit in syrup. Fruit juice. Vegetables Creamed or fried vegetables. Vegetables in a cheese sauce. Grains White bread. White (regular) pasta. White rice. Cornbread. Bagels. Pastries. Crackers that contain trans fat. Meats and other proteins Fatty cuts of meat. Ribs. Chicken wings. [place]. Sausage. Bologna. Salami. Chitterlings. Fatback. Hot dogs. Bratwurst. Packaged lunch meats. Dairy Whole or reduced-fat (2%) milk. Tjnx-knl-corj. Cream cheese. Full-fat or sweetened yogurt. Full-fatcheese. Nondairy creamers. Whipped toppings. Processed cheese or cheese spreads. Cheese curds. Fats and oils Butter. Stick margarine. Lard. Shortening. Ghee. [place] fat. Tropical oils, such as coconut, palm kernel, or palm oils. Beverages Alcohol. Sweetened drinks, such as soda, lemonade, fruit drinks, or punches. Sweets and desserts [place] syrup. Sugars. Honey. Molasses. Candy. Jam and jelly. Syrup. Sweetened cereals. Cookies. Pies.Cakes. Donuts. Muffins. Ice cream. Condiments Store-bought sauces, dressings, and marinades that are high in sugar, such as ketchup and barbecue sauce. The items listed above may not be a complete list of foods and beverages you should avoid. Talk with your dietitian about what dietary choices are best for you. Summary High levels of triglycerides can increase the risk of heart disease and stroke. Choosing the right foods can help lower your triglycerides. Eat plenty of fresh fruits, vegetables, and whole grains. Choose low-fat dairy and lean meats. Eat fatty fish at least twice a week. Avoid processed and prepackaged foods with added sugar, sodium, saturated fat, and trans fat. If you need suggestions or have questions about what types of food are good for you, talk with yourhealth care provider or a dietitian. This information is not intended to replace advice given to you by your health care provider. Make sure you discuss any questions you have with your health care provider. Document Revised: 11/19/2021 Document Reviewed: 11/19/2021 [employer] Patient Education 2023 [employer] Type 2 Diabetes Mellitus, Diagnosis, Adult Type 2 diabetes (type 2 diabetes mellitus) is a long-term, or chronic, disease. In type 2 diabetes,one or both of these problems may be present: The pancreas does not make enough of a hormone called insulin. Cells in the body do not respond properly to the insulin that the body makes (insulin resistance). Normally, insulin allows blood sugar (glucose) to enter cells in the body. The cells use glucose for energy. Insulin resistance or lack of insulin causes excess glucose to build up in the blood instead of going into cells. This causes high blood glucose (hyperglycemia). What are the causes? The exact cause of type 2 diabetes is not known. What increases the risk? The following factors may make you more likely to develop this condition: Having a family member with type 2 diabetes. Being overweight or obese. Being inactive (sedentary). Having been diagnosed with insulin resistance. Having a history of prediabetes, diabetes when you were (gestational diabetes), or polycystic ovary syndrome (PCOS). What are the signs or symptoms? In the early stage of this condition, you may not have symptoms. Symptoms develop slowly and may include: Increased thirst or hunger. Increased urination. Unexplained weight loss. Tiredness (fatigue) or weakness. Vision changes, such as blurry vision. Dark patches on the skin. How is this diagnosed? This condition is diagnosed based on your symptoms, your medical history, a physical exam, and yourblood glucose level. Your blood glucose may be checked with one or more of the following blood tests: A fasting blood glucose (FBG) test. You will not be allowed to eat (you will fast) for 8 hours or longer before a blood sample is taken. A random blood glucose test. This test checks blood glucose at any time of day regardless of when you ate. An A1C (hemoglobin A1C) blood test. This test provides information about blood glucose levels over the previous 23 months. An oral glucose tolerance test (OGTT). This test measures your blood glucose at two times: After fasting. This is your baseline blood glucose level. Two hours after drinking a beverage that contains glucose. You may be diagnosed with type 2 diabetes if: Your fasting blood glucose level is 126 mg/dL (7.0 mmol/L) or higher. Your random blood glucose level is 200 mg/dL (11.1 mmol/L) or higher. Your A1C level is 6.5% or higher. Your oral glucose tolerance test result is higher than 200 mg/dL (11.1 mmol/L). These blood tests may be repeated to confirm your diagnosis. How is this treated? Your treatment may be managed by a specialist called an secretary bookkeeper. Type 2 diabetes may be treated by following instructions from your health care provider about: Making dietary and lifestyle changes. These may include: Following a personalized nutrition plan that is developed by a registered dietitian. Exercising regularly. Finding ways to manage stress. Checking your blood glucose level as often as told. Taking diabetes medicines or insulin daily. This helps to keep your blood glucose levels in the healthy range. Taking medicines to help prevent complications from diabetes. Medicines may include: Aspirin. Medicine to lower cholesterol. Medicine to control blood pressure. Your health care provider will set treatment goals for you. Your goals will be based on your age, other medical conditions you have, and how you respond to diabetes treatment. Generally, the goal of treatment is to maintain the following blood glucose levels: Before meals: 43592 mg/dL (4.47.2 mmol/L). After meals: below 180 mg/dL (10 mmol/L). A1C level: less than 7%. Follow these instructions at home: Questions to ask your health care provider Consider asking the following questions: Should I meet with a certified diabetes care and instructor business education? What diabetes medicines do I need, and when should I take them? What equipment will I need to manage my diabetes at home? How often do I need to check my blood glucose? Where can I find a support group for people with diabetes? What number can I call if I have questions? When is my next appointment? General instructions Take qcpi-vmn-qihnarn and prescription medicines only as told by your health care provider. Keep all follow-up visits. This is important. Where to find more information For help and guidance and for more information about diabetes, please visit: [place] [employer] (ADA): www.diabetes.org [place] [employer] Care and Education Specialists (ADCES): www.diabeteseducator.org International Diabetes Federation (IDF): www.idf.org Contact a health care provider if: Your blood glucose is at or above 240 mg/dL (13.3 mmol/L) for 2 days in a row. You have been sick or have had a fever for 2 days or longer, and you are not getting better. You have any of the following problems for more than 6 hours: You cannot eat or drink. You have nausea and vomiting. You have diarrhea. Get help right away if: You have severe hypoglycemia. This means your blood glucose is lower than 54 mg/dL (3.0 mmol/L). You become confused or you have trouble thinking clearly. You have difficulty breathing. You have moderate or large ketone levels in your urine. These symptoms may represent a serious problem that is an emergency. Do not wait to see if the symptoms will go away. Get medical help right away. Call your local emergency services (911 in the [place] Do not drive yourself to the hospital. Summary Type 2 diabetes mellitus is a long-term, or chronic, disease. In type 2 diabetes, the pancreas doesnot make enough of a hormone called insulin, or cells in the body do not respond properly to insulin that the body makes. This condition is treated by making dietary and lifestyle changes and taking diabetes medicines or insulin. Your health care provider will set treatment goals for you. Your goals will be based on your age, other medical conditions you have, and how you respond to diabetes treatment. Keep all follow-up visits. This is important. This information is not intended to replace advice given to you by your health care provider. Make sure you discuss any questions you have with your health care provider. Document Revised: 10/04/2021 Document Reviewed: 10/04/2021 [employer] Patient Education 2023 [employer]. Fall Prevention in Hospitals, Adult Staying in the hospital puts you at risk of falling. Falls can cause serious injuries, but they canbe prevented. Make sure you know what puts you at risk for falling and what you and your health care team can do to prevent falls. If you or a loved one falls in the hospital, tell the hospital staff about it. What can increase my risk of falls? Factors that increase your risk of falling in the hospital include: Being in an unfamiliar environment, especially when using the bathroom at night. Having surgery or being on bed rest. Taking many medicines or certain types of medicines, such as sleeping pills. Some medicines can cause confusion, trouble with balance, dizziness, or low blood pressure. Having tubes in place, such as IVs or catheters. Other risk factors for falls while in the hospital include: Having trouble with hearing or vision. Having depression. Needing to use the toilet frequently. Having fallen during the past 3 months. What actions can I take to prevent falls? If you or a loved one has to stay in the hospital: Ask about which fall prevention strategies will be in place. Do not get up by yourself if you have been asked to call for help when getting up. Asking for help to get up is for your safety, and the staff is there to help you. Wear non-skid shoes or non-skid slippers. Get up slowly, and sit at the side of the bed for a few minutes before standing up. Keep items you need close to you, such as the call button or a phone, so that you do not need to reach for them. Wear eyeglasses or hearing aids as told by your health care provider. Have someone stay in the hospital with you or your loved one. Ask if sleeping pills or other medicines that can cause confusion or dizziness are necessary if they are prescribed to you or a loved one. What does the hospital staff do to help prevent falls? Hospitals have systems in place to prevent falls and accidents, which may include: Discussing your fall risk and making a personalized fall prevention plan. Checking in regularly to see if you need help. Some hospitals use video monitoring that allows a staff member to come to you if you need help. Placing an armband on your wrist or a sign near your room to alert other staff of your needs. Using an alarm on your hospital bed. This is an alarm that goes off if you get out of bed and forget to call for help. Keeping the bed in a low and locked position. Keeping the area around the bed and bathroom well-lit and not cluttered. Having a staff person stay with you (one-on-one observation), even when you are using the bathroom.This is for your safety. Using safety equipment, such as: A belt around your waist. Walkers, crutches, and other devices for support. Safety beds, such as low beds, or cushions on the floor next to the bed. What other actions can I take to prevent falls? Check in regularly with your provider or pharmacist to review all medicines that you take. Make sure that you have a regular exercise program to stay physically fit. This will help you maintain your balance. Talk with a physical therapist if recommended by your provider. A physical therapist can help you learn to do exercises to improve movement and strength. If you are over 65 years old: Ask your provider if you need a calcium or vitamin D supplement. Have your eyes and hearing checked every year. Have your feet checked every year. This information is not intended to replace advice given to you by your health care provider. Make sure you discuss any questions you have with your health care provider. Document Revised: 03/13/2023 Document Reviewed: 03/13/2023 [employer] Patient Education 2023 [employer] Coronary Artery Bypass Grafting, Care After After coronary artery bypass grafting, it is common to feel pain or discomfort around the cuts fromsurgery (incisions). You may also: Have the feeling that you may vomit or a lack of appetite. This means that you may not want to eat. Have trouble pooping (constipation). Have weakness and tiredness (fatigue). Feel very sad (depressed) or grouchy (irritable). Follow these instructions at home: The instructions below may help you care for yourself at home. Your doctor may give you more instructions. If you have questions, ask your doctor. Medicines Take kdsk-aae-yrykjiq and prescription medicines only as told by your doctor. Do not stop taking medicines or start any new medicines unless your doctor says it is okay. If you were prescribed antibiotics, take them as told by your doctor. Do not stop taking them even if you start to feel better. If told, take steps to prevent problems with pooping (constipation). You may need to: Take medicines. You will be told what medicines to take. Eat foods that are high in fiber. These include beans, whole grains, and fresh fruits and vegetables. Limit foods that are high in fat and sugar. These include fried or sweet foods. Ask your doctor if you should avoid driving or using machines while you are taking your medicine. Incision care Follow instructions from your doctor about how to take care of your incision areas. Make sure you: Wash your hands with soap and water for at least 20 seconds before and after you change your bandage. If you cannot use soap and water, use hand watchmaker apprentice. Change your bandage. Leave stitches or skin glue in place for at least 2 weeks. Leave skin tape strips alone unless you are told to take them off. You may trim the edges of the tape strips if they curl up. Make sure your incisions are clean, dry, and protected. Check your incision areas every day for signs of infection. Check for: More redness, swelling, or pain. More fluid or blood. Warmth. Pus or a bad smell. If incisions were made in your leg: Avoid crossing your legs. Avoid sitting for long periods of time. Change positions every 30 minutes. Raise (elevate) your legs when you are sitting. Bathing Do not take baths, swim, or use a hot tub. Ask your doctor about taking showers or sponge baths. Do not put lotions, ointments, or cream on your incision areas unless your doctor tells you to do so. Eating and drinking Eat heart-healthy food. This includes beans, nuts, whole grains, and raw fruits and vegetables. Any meats you eat should be lean cuts. Avoid canned, processed, and fried foods. Drink enough fluid to keep your pee (urine) pale yellow. Ask your doctor how much fluid you should drink. Do not drink alcohol. Ask your doctor when it is safe to drink alcohol. Activity Rest as told by your doctor. You may be told to: Stop any activity right away if you have chest pain, shortness of breath, or fast or irregular heartbeats (palpitations). Get help right away if you have any of these symptoms. Get up to take short walks every 1 to 2 hours. Ask for help if you feel weak or unsteady. Slowly increase your activities. Avoid lifting, pushing, or pulling anything that is heavier than 10 lb (4.5 kg) for at least 6 weeks or as told by your doctor. Do physical therapy or a cardiac rehab (cardiac rehabilitation) program as told by your doctor. For physical therapy, you do exercises that: Help your joints to move freely. Make your muscles and bones strong. Build your endurance. This is your ability to do everyday work without getting tired very easily. For cardiac rehab, your doctor teaches you: How to exercise to make your heart strong. How to make lifestyle changes that help your heart, such as healthy eating and quitting smoking. How to reduce stress in your life. Do not drive until your doctor says it is okay. Ask your doctor when you can go back to work. Ask your doctor when you can have sex again. General instructions Wear a medical alert bracelet or carry a card that lists what medicines you take. Do not smoke or use any products that contain nicotine or tobacco. If you need help quitting, ask your doctor. Take 23 deep breaths every few hours during the day. This helps expand your lungs and prevent problems. If you were given a device called an incentive spirometer, use it several times a day to practice deep breathing. Support your chest with a pillow or your arms when you take deep breaths or cough. Wear compression stockings as told by your doctor. Weigh yourself every day. This helps to see if your body is holding fluid that may make your heart and lungs work harder. Keep all follow-up visits. Your doctor will check how well you are healing and if your grafts are working properly. Contact a doctor if: You have signs of infection at your incision areas. You have a fever. You have swelling in your ankles or legs. You have pain in your legs. You gain 2 lb (0.9 kg) or more a day. You cannot stop vomiting or you have watery poop (diarrhea). You feel confused or you have dizziness. You notice a "clicking" in your breastbone (sternum) when you move. Get help right away if: You have chest pain that goes to your jaw or arms. You have a fast or irregular heartbeat. You are short of breath. You have any signs of a stroke. "BE FAST" is an easy way to remember the main warning signs: B - Balance. Signs are dizziness, sudden trouble walking, or loss of balance. E - Eyes. Signs are trouble seeing or a change in how you see. F - Face. Signs are sudden weakness or loss of feeling of the face, or the face or eyelid drooping on one side. A - Arms. Signs are weakness or loss of feeling in an arm. This happens suddenly and usually on oneside of the body. S - Speech. Signs are sudden trouble speaking, slurred speech, or trouble understanding what peoplesay. T - Time. Time to call emergency services. Write down what time symptoms started. You have other signs of a stroke, such as: A sudden, very bad headache with no known cause. Feeling sick to your stomach or vomiting. Jerky movements you cannot control (seizure). These symptoms may be an emergency. Get help right away. Call 911. Do not wait to see if the symptoms will go away. Do not drive yourself to the hospital. This information is not intended to replace advice given to you by your health care provider. Make sure you discuss any questions you have with your health care provider. Document Revised: 01/04/2023 Document Reviewed: 01/04/2023 [employer] Patient Education 2023 [employer] Coronary Artery Bypass Grafting Coronary artery bypass grafting (CABG) is a surgery to bypassor to fix arteries of the heart (coronary arteries) that are narrow or blocked. This narrowing is usually the result of a buildup of fattydeposits (plaques) in the trujillo of the vessels. The coronary arteries supply the heart with the oxygen and nutrients that it needs to pump blood through your body. In this surgery, a section of blood vessel from another part of the body is placed where it will allow blood to flow around the damaged part of the coronary artery. The new section of blood vessel iscalled the graft. Tell a health care provider about: Any allergies you have. All medicines you are taking or using, including vitamins, herbs, eye drops, creams, and urfx-zil-dxsqwux medicines. Any problems you or family members have had with anesthesia. Any bleeding problems you have. Any surgeries you have had. Any medical conditions you have. Whether you are or may be . What are the risks? Your health care provider will talk with you about the risks. These may include: Bleeding, which may require transfusions. Infection. Pain at the surgery site. Allergic reactions to medicines or dyes. Damage to other structures or organs. Blockage in the graft, or failure of the graft to work properly. Other problems may include: Heart rhythm problems (arrhythmias). Kidney failure. Short-term memory loss, confusion, and personality changes. Heart attack, stroke, or . What happens before the procedure? When to stop eating and drinking Follow instructions from your health care provider about what you may eat and drink. These may include: 8 hours before your procedure Stop eating most foods. Do not eat meat, fried foods, or fatty foods. Eat only light foods, such as toast or crackers. All liquids are okay except energy drinks and alcohol. 6 hours before your procedure Stop eating. Drink only clear liquids, such as water, clear fruit juice, black coffee, plain tea, and sports drinks. Do not drink energy drinks or alcohol. 2 hours before your procedure Stop drinking all liquids. You may be allowed to take medicines with small sips of water. If you do not follow your health care provider's instructions, your procedure may be delayed or canceled. Medicines Ask your health care provider about: Changing or stopping your regular medicines. These include any diabetes medicines or blood thinnersyou take. Taking medicines such as aspirin and ibuprofen. These medicines can thin your blood. Do not take them unless your health care provider tells you to. Taking auyg-pfg-vktfcte medicines, vitamins, herbs, and supplements. Safety Ask your health care provider: What part of your body the graft will be taken from. How your surgery site or sites will be marked. What steps will be taken to help prevent infection. These steps may include: Removing hair at the surgery site. Washing skin with a soap that kills germs. Taking antibiotics. General instructions Do not use any products that contain nicotine or tobacco for at least 4 weeks before the procedure.These products include cigarettes, chewing tobacco, and vaping devices, such as e-cigarettes. If you need help quitting, ask your health care provider. Quitting smoking is one of the best things you can do for your heart health. Pack clothing for recovery. Bring loose fitting clothing, pants with an elastic waist, and comfortable, non-skid shoes that are easy to put on. What happens during the procedure? An IV will be inserted into one of your veins. You may be given: A sedative. This helps you relax. Anesthesia. This will: Numb certain areas of your body. Make you fall asleep for surgery. A breathing tube will be placed in your throat. It will be connected to a machine that helps you breathe (ventilator). A small, thin tube (catheter) may be placed in your bladder to drain your urine during the procedure. An incision will be made down the front of the chest, and the breastbone (sternum) will be opened so the surgeon can see the heart. The surgeon may choose to: Stop your heart for surgery. In this case, a heart-lung bypass machine will be used. The machine will do the work of your heart and lungs during surgery. Do surgery while your heart is beating. This procedure is called beating heart bypass surgery or off-pump coronary artery bypass (OPCAB). A section of a blood vessel will be removed from another part of your body, usually the chest, arm,or leg. The blood vessel will be attached above and below the blocked artery of your heart. This may be done on more than one artery of the heart. Your chest will be closed with special surgical wire to hold your breast bone together for healing. Your incision will be closed with stitches (sutures), skin glue, or adhesive strips. Bandages (dressings) will be placed over the incision. Tubes will be placed in your chest and will be connected to a suction device to help drain fluid and re-inflate the lungs. The procedure may vary among health care providers and hospitals. What happens after the procedure? Your blood pressure, heart rate, breathing rate, and blood oxygen level will be monitored until youleave the hospital. You may be in the intensive care unit (ICU) for 12 days. You may have a temporary pacemaker while in the ICU. This is a machine that helps regulate your heartbeat. You may have a breathing tube. You will not be able to talk while the tube is in place. You may be given oxygen to help you breathe. You may be given new medicines to take after your surgery. Cardiac rehabilitation will be started while you are in the hospital. This may include education and exercises to help you recover from your surgery. Where to find more information [employer] [place]: nhlbi.nih.gov This information is not intended to replace advice given to you by your health care provider. Make sure you discuss any questions you have with your health care provider. Document Revised: 01/03/2023 Document Reviewed: 01/03/2023 [employer] Patient Education 2023 IMScouting. Coronary Artery Disease, Male Coronary artery disease (CAD) is a condition in which the arteries that lead to the heart (coronaryarteries) become narrow or blocked. The narrowing or blockage can lead to decreased blood flow to the heart. Prolonged reduced blood flow can cause a heart attack (myocardial infarction, or ME). Thiscondition may also be called coronary heart disease. CAD is the most common type of heart disease, and heart disease is the leading cause of in men. It is important to understand what causes CAD and how it is treated. What are the causes? CAD is most often caused by atherosclerosis. This is the buildup of fat and cholesterol (plaque) onthe inside of the arteries. Over time, the plaque may narrow or block the artery, reducing blood flow to the heart. Plaque can also become weak and break off within a coronary artery and cause a sudden blockage. Other less common causes of CAD include: A blood clot or a piece of another substance that blocks the flow of blood in a coronary artery (embolism). A tearing of the artery (spontaneous coronary artery dissection). An enlargement of an artery (aneurysm). Inflammation (vasculitis) in the artery wall. What increases the risk? The following factors may make you more likely to develop this condition: Age. Men older than 45 years are at a greater risk of CAD. Family history of CAD. High blood pressure (hypertension). Diabetes. High cholesterol levels. Obesity. Other risk factors include: Tobacco use. Excessive alcohol use. Lack of exercise. A diet high in saturated and trans fats, such as fried food and processed meat. What are the signs or symptoms? Many people do not have any symptoms during the early stages of CAD. As the condition progresses, symptoms may include: Chest pain (angina). The pain can: Feel like crushing or squeezing, or like a tightness, pressure, fullness, or heaviness in the chest. Last more than a few minutes or can stop and recur. The pain tends to get worse with exercise or stress and to fade with rest. Pain in the arms, neck, jaw, ear, or back. Unexplained heartburn or indigestion. Shortness of breath. Nausea or vomiting. Sudden light-headedness. Sudden cold sweats. Fluttering or fast heartbeat (palpitations). How is this diagnosed? This condition is diagnosed based on: Your family and medical history. A physical exam. Tests. These may include: A test to check the electrical signals in your heart (electrocardiogram). Exercise stress test. This looks for signs of blockage when the heart is stressed with exercise, such as running on a treadmill. Pharmacologic stress test. This test looks for signs of blockage when the heart is being stressed with a medicine. Blood tests to check levels of cardiac enzymes such as troponin and creatine kinase. Coronary angiogram. This is a procedure to look at the coronary arteries to see if there is any blockage. During this test, a dye is injected into your arteries so they appear on an X-ray. Coronary artery CT scan. This scan helps detect calcium deposits in your coronary arteries. Calciumdeposits are an indicator of CAD. A test that uses sound waves to take a picture of your heart (echocardiogram). How is this treated? This condition may be treated by: Healthy lifestyle changes to reduce risk factors. Medicines such as: Antiplatelet medicines such as clopidogrel or aspirin. These help to prevent blood clots. Nitroglycerin. Blood pressure medicines. Cholesterol-lowering medicine. Coronary angioplasty and stenting. During this procedure, a thin, flexible tube is inserted througha blood vessel and into a blocked artery. A balloon or similar device on the end of the tube is inflated to open up the artery. In some cases, a small, mesh tube (stent) is inserted into the artery to keep it open. Coronary artery bypass surgery. During this surgery, veins or arteries from other parts of the bodyare used to create a bypass around the blockage and allow blood to reach your heart. Follow these instructions at home: Medicines Take nwav-mdj-snofilp and prescription medicines only as told by your health care provider. Do not take the following medicines unless your health care provider approves: NSAIDs, such as ibuprofen, naproxen, or celecoxib. Vitamin supplements that contain vitamin A, vitamin E, or both. Lifestyle Follow an exercise program approved by your health care provider. Ask your health care provider if cardiac rehab is appropriate. Maintain a healthy weight or lose weight as approved by your health care provider. Learn to manage stress or try to limit your stress. Ask your health care provider for suggestions if you need help. Get screened for depression and seek treatment, if needed. Do not use any products that contain nicotine or tobacco. These products include cigarettes, chewing tobacco, and vaping devices, such as e-cigarettes. If you need help quitting, ask your health careprovider. Eating and drinking Follow a heart-healthy diet. A dietitian can help educate you about healthy food options and changes. In general, eat plenty of fruits and vegetables, lean meats, and whole grains. Avoid foods high in: Sugar. Salt (sodium). Saturated fat, such as processed or fatty meat. Trans fat, such as fried foods. Use healthy cooking methods such as roasting, grilling, broiling, baking, poaching, steaming, or stir-frying. Do not drink alcohol if your health care provider tells you not to drink. If you drink alcohol: Limit how much you have to 02 drinks a day. Know how much alcohol is in your drink. In the [place] one drink equals one 12 oz bottle of beer (355mL), one 5 oz glass of wine (148 mL), or one 1 oz glass of hard liquor (44 mL). General instructions Manage any other health conditions, such as high cholesterol, hypertension, and diabetes. These conditions affect your heart. Your health care provider may ask you to monitor your blood pressure. Keep all follow-up visits. This is important. Get help right away if: You have pain in your chest, neck, ear, arm, jaw, stomach, or back that: Lasts more than a few minutes. Is recurring. Is not relieved by taking medicine under your tongue (sublingual nitroglycerin). You have profuse sweating without cause. You have unexplained: Heartburn or indigestion. Shortness of breath or difficulty breathing. Fluttering or fast heartbeat (palpitations). Nausea or vomiting. Fatigue or weakness. Feelings of nervousness or anxiety. You have sudden light-headedness or dizziness. You faint. These symptoms may be an emergency. Get help right away. Call 911. Do not wait to see if the symptoms will go away. Do not drive yourself to the hospital. Summary Coronary artery disease (CAD) is a condition in which the arteries that lead to the heart (coronaryarteries) become narrow or blocked. Prolonged reduced blood flow can cause a heart attack. CAD can be treated with lifestyle changes, medicines, coronary angioplasty or stents, coronary artery bypass surgery, or a combination of these treatments. Keep all follow-up visits. This is important. This information is not intended to replace advice given to you by your health care provider. Make sure you discuss any questions you have with your health care provider. Document Revised: 06/08/2022 Document Reviewed: 06/08/2022 [employer] Patient Education 2023 IMScouting. .Inpt Proc * TANIA Watkins Jamie: PERFORM, MODIFY Event Display: .Inpt Proc Authored Date: [id number] INPATIENT PROCEDURE Name: GEORGES POLLOCK Patient Number: [id number] : 1955 Date of Service: 07/10/24 Arterial Line Insertion Note: PROVIDER: TANIA Jhaveri INDICATION: Hypotension requiring invasive blood pressure monitoring PROCEDURE PERFORMED: Right radial arterial line insertion COMPLICATIONS: None ESTIMATED BLOOD LOSS: Less than 10 ml PROCEDURE: The patient remained in the ICU on his bed in the supine position. The right wrist wasprepped and draped in the usual sterile fashion. A palpable radial artery was present at initiation of the procedure. The site was anesthetized with 1% lidocaine. A 20 Gauge angiocatheter was inserted into the right radial artery, under ultrasound guidance. Once blood flow was returned, the needle was removed and pulsatile flow was noted from the angiocatheter. A guide wire was then passed through the angiocatheter easily, and the catheter was floated into proper position. A pressure transducer was then connected to the angiocatheter and an arterial waveform was noted on the monitor. The line was then secured with an occlusive tegaderm dressing. No complications were noted with the procedure and only one attempt was performed. Electronic Signature on File Electronically Reviewed/Signed by: TANIA Jhaveri Author Signature Dt/Tm:07/10/2024 07:39 PM [facility] [place] [facility] Anesthesiology procedure note * MD Huntley Parker Richard: PERFORM, SIGN MD Huntley Parker Richard: SIGN MD Shaylee, Tavares Umana: MODIFY, SIGN MD Shaylee, Tavares Umana: SIGN, VERIFY MD June Adam Y: VERIFY Event Display: Anes Acute Pain Procedure Note Authored Date: [id number] Patient: GEORGES POLLOCK Age: 69 years Sex: Male : 1955 Associated Diagnoses: None Author: MD Huntley Parker Richard Procedure Assessment VS/Measurements: Vital Signs 07/09/2024 15:30 EST Heart Rate 90 bpm Respiratory Rate 20 br/min Systolic Blood Pressure Arterial 90 Diastolic Blood Pressure Arterial 57 Mean Arterial Pressure 68 Pulse Pressure 33 mmHg ETCO2 40 mmHg SpO2 100 % IMCO2 0 mmHg . Assessment: Procedure Date: 07/09/2024. Consent for regional Procedure: Yes. Pain Assessment: Pain Location: Chest, Bilateral. Acute Pain Procedure Procedure Location: OR. Timing of Procedure: Pre-emergence. Correct Site/Side Identified/Marked: Yes. Patient Monitored: Yes. Oxygen Available: Yes. Time Out Complete: Yes. Sterile field established: Yes. Ultrasound probe covered with sterile sleeve as indicated: Yes. Nerve identified and examined with ultrasound: Yes. Needle advanced to desired location under ultrasound guidance: Yes. Ultrasound image stored in PACS: Yes. Procedure Start Time: 07/09/2024 13:55:00. Procedure End Time: 07/09/2024 14:00:00. Attending Present: Yes. Anesthesiologist: MD June Adam Y. Resident/Fellow/COLLEGE DEAN: MD Huntley Parker Richard. Referring Physician: MD [facility]. Patient Awake and Alert: No. Truncal Block + Patient Position: Supine. Laterality: Bilateral. Block Location: PIF. Sedation: General Anesthesia. Skin Preparation: Chlorhexidine. Needle Type: Short Bevel/Stimulating. MRI Compatible: No. Needle Used: StimuCath 20 g x 40 mm. Technique: Single Injection. Nerve Localization Technique: Ultrasound. Ultrasound Orientation: In plane. # of attempts: 1 . Aspiration: None. Total Volume Injected: 40 mL. Pain on Injection: No. Parasthesia: No. Block Complications: No. Professional Services Resident/Fellow/COLLEGE DEAN: MD Audi, Francisco Su. Acute Pain Procedure For Post Op Pain Management: No. Anesthesia Hospital Charge AdHoc Form: Regional Anesthesia Section Completed: Yes. Attending attestation: I was present for all portions of the procedure. Patient tolerated the procedure well with no immediate complications. Electronic Signature on File Electronically Reviewed/Signed by: rFancisco Huntley MD Author Signature Dt/Tm:07/09/2024 03:40 PM Resident Department of Anesthesia Electronically Reviewed/Signed by: Tavares June MD Cosigner Signature Dt/Tm: 07/15/2024 06:30 AM Department of Anesthesia [facility] Patient Care team information Care Team Personnel Name: Triston Back Michael Position: Pharmacist Member Role: Pharmacy - Lifetime Name: MD Villarreal Darren Michael Position: Referring Member Role: Primary Care Provider Address: [facility] [address] [place] [id number] [place]
--- OUTSIDE RECORDS SUMMARY | 2024-08-20 04:44 | External Medical Summary | Continuity of Care Document ---
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 Name Role Phone Zach Pollock Primary Care Physician [phone] Encounter [facility] [id number] Date(s): 08/02/24 - 08/02/24 [facility] - [address], [address], [address] [place] [address] [phone] Encounter Diagnosis Coronary artery disease involving confederated yakama heart(Discharge Diagnosis) - 08/02/24 S/P CABG x 3(Discharge Diagnosis) - 08/02/24 Mixed dyslipidemia(Discharge Diagnosis) - 08/02/24 Hypertension with heart disease(Discharge Diagnosis) - 08/02/24 Body mass index [BMI] 50.0-59.9, adult(Discharge Diagnosis) - 08/02/24 Discharge Disposition: Home or Self Care Attending Physician: KEISHA Loza Michelle L Allergies, Adverse Reactions, Alerts Substance Criticality Severity Reaction Reaction Severity Status penicillin unknown Active sulfa drugs unknown Active Statins (HMG-CoA reductase inhibitors) unable to walk muscles cramping Active levoFLOXacin tongue swelling anaphylaxis Active Assessment and Plan Extracted from: Title:CABG post op Surgery O ffice Visit Note Author:KEISHA Loza Michelle L Date:08/02/24 1.Coronary artery disease involving confederated [place] heart Status: chronic condition, stable Consume a healthy diet, with an emphasis on vegetables, fruits, nuts, whole grains, lean vegetable or animal protein and fish. Further, minimize intake of trans fats, processed meats, refined carbohydrates, and sugar-sweetened beverages. Engage in at least 150 minutes per week of accumulated moderate intensity or 75 minutes per week of vigorous intensity physical activity. Avoid all tobacco use. The AHA 2020 dietary guidelines do not recommend initiation or consumption of low amounts of alcohol in an effort to improve cardiovascular outcomes. If one does consume alcohol, it is recommended to have no more than 1 drink per day for women and 2 drinks per day for men. 2.S/P CABG x 3 Left internal mammary artery to the mid-left anterior descending artery, Aorta to the ramus intermedius artery using a reversed saphenous vein graft, Aorta to the obtuse marginal artery using a reversed saphenous vein graft. Anti-plateletaspirin 81mg daily + Plavix (clopidogrel) 75mg daily Beta blockermetoprolol tartrate (Lopressor)50mg BID Lipid lowering agentezetimibe (Zetia)10mg daily Per [place] [employer] scientific statement, unless contraindicated, ASA 81mg should be continued indefinitely to reduce graft occlusion and adverse cardiac events. Combination therapy with both aspirin and clopidogrel for 6 months to 1 year after on-pump CABG may be considered. Medications reviewed, taking as prescribed. Continue to increase activity. Use ISB as instructed at discharge. Follow up with cardiology Dr. Nicholas on 10/21/2024. Follow up with primary care provider Dr. Pollock next week. Encouraged participation in cardiac rehab, beginning 6 weeks after surgery. Reminded patientno driving for at least 4 weeks after surgery andlifting restriction of no more than 10 pounds for 6 weeks after surgery and no more than 20 pounds for a total of 12 weeks after surgery. Continue to monitor vital signs, incision sitesand contact us with any issues. All questions satisfactorily answered and patientstated understanding of today's discussion. Follow up with CT surgery via telehealth on 09/13/2024. 3.Mixed dyslipidemia Status: chronic condition, not controlled Optimize medications and lifestyle measures to achieve goalLDL-C at least<100 mg/dL and ideally <70 mg/dL. He lists statins as an allergy. Currently on Zetia 10mg. Recommend aggressive lifestyle modifications, along with medication compliance. Further monitoring andmanagement deferred to cardiology and/or PCP. Lipid Profiles (Last 13 months): Results 07/06/2024 04:03 Chol 254 HDL 59 Non-HDL 195 LDL Chol, Calculated 174 TG 103 4.Hypertension with heart disease Status: chronic condition, stable/controlled Continued optimization of medications, lifestyle measures, weight loss (as appropriate) to achieve goal BP<130/80 mm/Hg. Further management deferred to cardiology and/or PCP. Medications aspirin 81 mg oral delayed release tablet Start: 07/23/24 9:05:00 AM EST, 1 tab, PO, Daily, Disp# 30 tab, Refills: 1, Pharmacy: [facility] Start Date: 07/23/24 Stop Date: 09/21/24 Status: Ordered betamethasone-clotrimazole 0.05%-1% topical cream Start: 07/06/24 3:59:00 AM EST, 1 appl, topical, bid Start Date: 07/06/24 Status: Ordered metoprolol tartrate 50 mg oral tablet Start: 07/23/24 9:05:00 AM EST, 1 tab, PO, bid, Disp# 60 tab, Refills: 1, Pharmacy: [facility] Start Date: 07/23/24 Stop Date: 09/21/24 Status: [...] Daily, Disp# 30 tab, Refills: 1, Pharmacy: [facility] Start Date: 07/23/24 Stop Date: 09/21/24 Status: Ordered Protonix 40 mg oral delayed release tablet Start: 07/23/24 9:05:00 AM EST, 1 tab, PO, q24h, Disp# 30 tab, Refills: 0, Pharmacy: [facility] Start Date: 07/23/24 Stop Date: 08/22/24 Status: Ordered tamsulosin Start: 07/06/24 3:57:00 AM EST, 0.4 mg =, PO, Daily Start Date: 07/06/24 Status: Ordered Zetia 10 mg oral tablet Start: 07/23/24 9:04:00 AM EST, 1 tab, PO, Daily, Disp# 30 tab, Refills: 1, Pharmacy: [facility] Start Date: 07/23/24 Stop Date: 09/21/24 Status: Ordered Mental Status 08/02/24 Barriers to Learning one year None evide nt Mandatory Health Literacy Documentation Yes Health Literacy Communication Barriers N ever Primary Language Danish Problem List Condition Confirmation Course Effective Dates Status Health St atus Informant Vitamin B 12 deficiency Confirmed Active Coronary artery disease involving confederated yak[place] heart Confirmed Active Mixed dyslipidemia Confirmed Active History of BPH Confirmed Active Hypertension with heart disease Confirmed Active S/P CABG x 3 Confirmed Active Hyperlipemia Confirmed Active Hypertension Confirmed Active Kidney stones Confirmed Active Morbid obesity Confirmed Active Diabetes type 2 Confirmed Active Diagnosis Diagnosis Type Effective Dates Health Status Clinical Service Informant Coronary artery disease involving confederated [place] heart Discharge Diagnosis 08/02/24 Non-Specified S/P CABG x 3 Discharge Diagnosis 08/02/24 Non-Specified Mixed dyslipidemia Discharge Diagnosis 08/02/24 Non-Specified Hypertension with heart disease Discharge Diagnosis 08/02/24 Non-Specified Body mass index [BMI] 50.0-59.9, adult Discharge Diagnosis 08/02/24 Non-Specified Procedures Procedure Date Related Diagnosis Body Site Status CYSTOSCOPY W/BIOPSY(S) 1995 Co mpleted Vital Signs Most recent to oldest [Reference Range]: 1 Height 177 cm 1 (08/02/24 2:40 PM) Patient Weight 156.8 kg 2 (08/02/24 2:40 PM) Body Mass Index 50.05 kg/m2 (08/02/24 2:40 PM) Temperature [36.5-37.9 DegC] 36.3 DegC *LOW* (08/02/24 2:40 PM) Heart Rate 94 bpm (08/02/24 2:40 PM) Respiratory Rate 18 br/min (08/02/24 2:40 PM) Blood Pressure 110/60mmHg (08/02/24 2:40 PM) Cuff Pulse Pressure 50 mmHg (08/02/24 2:40 PM) BP Location # 1 Left Arm (08/02/24 2:40 PM) 1Result Comment: w/shoes 2Result Comment: w/shoes Social History Social History Type Response Smoking Status Former Smoker, quit > 1 yr Sex Sex Representation Male (finding) Cardiac surgery Outpatient Note * KEISHA Loza, Ariela Casiano: PERFORM, MODIFY, MODIFY, MODIFY Event Display: Cardiac Surgery Outpt Note Authored Date: [id number] Primary Care Provider MD Pollock Darren Michael Referring Provider MD Altman James Chief Complaint CABG post op History of Present Illness Here today in follow up after surgery by Dr. Cortez on07/09/2024: PREOPERATIVE DIAGNOSIS: 1. Coronary artery disease, confederated yakama. 2. Non-ST elevation myocardial infarction. 3. Hyperlipidemia. 4. Diabetes mellitus. 5. Morbid obesity, BMI 51.2. 6. Systolic heart failure with preserved LVEF, probably chronic. 7. NYHA class 3. 8. Hyponatremia, preoperatively. 9. Chronic kidney disease, stage 3. 10. Aortic stenosis, [id number]. OPERATION PERFORMED: 1. Coronary artery bypass grafting x3: Left internal mammary artery to the mid- left anterior descending artery, Aorta to the ramus intermedius artery using a reversed saphenous vein graft, Aorta to the obtuse marginal artery using a reversed saphenous vein graft. 2. Endoscopic saphenous vein harvest. 3. Transesophageal echocardiogram. 4. Epiaortic ultrasound scan. [1] It was recommended he be discharged to rehab, however after multiple attempts to call for peer to peer appeal of denial, the family agreed to care for him at home. He was discharged home on 07/23/2024. He presents to clinic today with his . They both say he's doing well. The first few days were difficult but now he's doing a lot better. Eating healthier and not as much. Home blood pressures have been in the 130-150's/70-80's. He was on irbesartan 150mg daily prior to surgery, so I told him doronume that today. He's having lower extremity edema which was an issue before surgery. He had been prescribed Lasix 40mg to use once or twice a day, based on how much swelling he has. I told him he may resume this (Cr was 1.25 at discharge). Review of Systems Constitutional symptoms: denies fever, chills Cardiovascular: denies chest pain, palpitations, syncope, orthopnea, paroxysmal nocturnal dyspnea, peripheral edema, no clicking, popping or instabilityof chest wall Respiratory: denies cough, wheezing, shortness of breath - Skin: no excessive redness, warmthor drainage from incisions Physical Exam Vitals & Measurements T:36.3C HR:94(Monitored) RR:18 BP:110/60 SpO2:96% HT:177cm WT:156.800kg(Dosing) WT:156.8kg BMI:50.05 Vital signs as documented Constitutional:Well nourished, in no acute distress Skin:Warm, dry; surgical sites are healing without redness, swelling, drainage, excessive warmth Neck:No JVD Chest:Clear to auscultation bilaterally, no use of accessory muscles, no clicking, popping or instability in chest wall Heart:RRR, norubs, gallops,or murmur Extremities: nonpitting bilateral peripheral edema Assessment/Plan 1.Coronary artery disease involving confederated [place] heart Status: chronic condition, stable Consume a healthy diet, with an emphasis on vegetables, fruits, nuts, whole grains, lean vegetable or animal protein and fish. Further, minimize intake of trans fats, processed meats, refined carbohydrates, and sugar-sweetened beverages. Engage in at least 150 minutes per week of accumulated moderate intensity or 75 minutes per week ofvigorous intensity physical activity. Avoid all tobacco use. The AHA 2020 dietary guidelines do not recommend initiation or consumption of low amounts of alcohol in an effort to improve cardiovascular outcomes. If one does consume alcohol, it is recommended tohave no more than 1 drink per day for women and 2 drinks per day for men. 2.S/P CABG x 3 Left internal mammary artery to the mid-left anterior descending artery, Aorta to the ramus intermedius artery using a reversed saphenous vein graft, Aorta to the obtuse marginal artery using a reversed saphenous vein graft. Anti-plateletaspirin 81mg daily + Plavix (clopidogrel) 75mg daily Beta blockermetoprolol tartrate (Lopressor)50mg BID Lipid lowering agentezetimibe (Zetia)10mg daily Per [place] [employer] scientific statement, unless contraindicated, ASA 81mg should be continued indefinitely to reduce graft occlusion and adverse cardiac events. Combination therapy with both aspirin and clopidogrel for 6 months to 1 year after on-pump CABG maybe considered. Medications reviewed, taking as prescribed. Continue to increase activity. Use ISB as instructed at discharge. Follow up with cardiology Dr. Nicholas on 10/21/2024. Follow up with primary care provider Dr. Pollock next week. Encouraged participation in cardiac rehab, beginning 6 weeks after surgery. Reminded patientno driving for at least 4 weeks after surgery andlifting restriction of no morethan 10 pounds for 6 weeks after surgery and no more than 20 pounds for a total of 12 weeks after surgery. Continue to monitor vital signs, incision sitesand contact us with any issues. All questions satisfactorily answered and patientstated understanding of today's discussion. Follow up with CT surgery via telehealth on 09/13/2024. 3.Mixed dyslipidemia Status: chronic condition, not controlled Optimize medications and lifestyle measures to achieve goalLDL-C at least<100 mg/dL and ideally <70 mg/dL. He lists statins as an allergy. Currently on Zetia 10mg. Recommend aggressive lifestyle modifications, along with medication compliance. Further monitoring andmanagement deferred to cardiology and/or PCP. Lipid Profiles (Last 13 months): Results 07/06/2024 04:03 Chol 254 HDL 59 Non-HDL 195 LDL Chol, Calculated 174 TG 103 4.Hypertension with heart disease Status: chronic condition, stable/controlled Continued optimization of medications, lifestyle measures, weight loss (as appropriate) to achieve goal BP<130/80 mm/Hg. Further management deferred to cardiology and/or PCP. Attestation I, Ariela Sim PA-C, [id number] discrete time performing the activities of this visit. Activities mayinclude any or all of the following: - review of the medical record - obtaining a history - physical exam/evaluation - counseling/educating patient/family/caregiver - discussion/referral to other healthcare professionals - documenting care in the medical record - independent interpretation of results - communication of results to patient/family/caregiver - coordination of care Confidentiality Statement: Please notify us immediately if you received this communication in error. This document contains information from [facility] and may be confidential and/or privileged. The information is intended only for the use of the individuals or entities namedin this document. If you are not the intended recipient, you are hereby notified that any disclosure, copying, distribution, or the taking of any action in reliance on the contents of this information is strictly prohibited. Problem List/Past Medical History Ongoing Coronary artery disease involving confederated [place]ak[place] heart Diabetes type 2 History of BPH Hyperlipemia Hypertension Hypertension with heart disease Kidney stones Mixed dyslipidemia Morbid obesity S/P CABG x 3 Vitamin B 12 deficiency Procedure/Surgical History CYSTOSCOPY W/BIOPSY(S)| Service Date: 1995 Medications aspirin(aspirin 81 mg oral delayed release tablet), 81 mg= 1 tab, PO, Daily, 1 refills betamethasone-clotrimazole topical(betamethasone-clotrimazole 0.05%-1% topical cream), 1 appl, topical, bid clopidogrel(Plavix 75 mg oral tablet), 75 mg= 1 tab, PO, Daily, 1 refills ezetimibe(Zetia 10 mg oral tablet), 10 mg= 1 tab, PO, Daily, 1 refills metoprolol(metoprolol tartrate 50 mg oral tablet), 50 mg= 1 tab, PO, bid, 1 refills montelukast(montelukast 10 mg oral tablet), 10 mg= 1 tab, PO, qPM pantoprazole(Protonix 40 mg oral delayed release tablet), 40 mg= 1 tab, PO, q24h pioglitazone(pioglitazone 45 mg oral tablet), 45 mg= 1 tab, PO, Daily tamsulosin, 0.4 mg, PO, Daily Allergies Statins (HMG-CoA reductase inhibitors)unable to walk, muscles cramping levoFLOXacintongue swelling, anaphylaxis penicillinunknown sulfa drugsunknown Social History Smoking Status Former Smoker, quit > 1 yr Recommendations Health Maintenance Pending(in the next year) OverDue Adult Influenza Vaccine due01/22/24and every 1year Due Adult COVID-19 Vaccination due08/02/24Unknown Frequency Adult Tdap/Td Vaccine due08/02/24Unknown Frequency Colorectal Cancer Screening due08/02/24Unknown Frequency Diabetic Eye Exam due08/02/24Unknown Frequency Hepatitis C Screening due08/02/24One-time only Medicare Annual Wellness Visit due08/02/24and every 1year Pneumococcal Vaccine Older Adults due08/02/24One-time only Shingles Vaccine due08/02/24One-time only Due In Future Adult Social Determinants of Health Screening not due until07/07/25and every 366day Diabetes Management A1c not due until07/08/25and every 366day Satisfied(in the past 1 year) Satisfied Body Mass Index on08/02/24.Satisfied by JOHANA Tsang Shaylin Diabetes Management A1c on07/07/24.Satisfied by Contributor_system, [id number] Lipid Screening on07/06/24.Satisfied by Contributor_system, [id number] Electronic Signature on File CC: Zach Pollock MD [facility] [address] [facility] [place] [id number] * CC: Kartik Cortez MD [address] [place] [id number] Electronically Reviewed/Signed by: Ariela Loza PA-C Author Signature Dt/Tm:08/02/2024 04:32 PM Division of Cardiothoracic Surgery MLL Patient Care team information Care Team Personnel Name: Triston Back Michael Position: Pharmacist Member Role: Pharmacy - Lifetime Name: MD Pollock Darren Michael Position: Referring Member Role: Primary Care Provider Address: [facility] [address] [facility] [place] [address] [place] Care Team Related Persons Name: MELODY LANGSTON"
[2024-08-20 07:17] VITALS: RESP 19
[2024-08-20 07:54] LABS: Hematocrit (blood only) 38.5 % (42.0-52.0); Hemoglobin 12.7 g/dl (14.0-18.0); Mean Corpuscular Hemoglobin 27.8 pg (25.0-34.0); Mean Corpuscular Volume 84.2 fL (80.0-100.0); Mean Platelet Volume 8.7 fL (9.4-12.4); Platelet Count 324 K/uL (130-400); RDW Coefficient of Variation 14.6 % (11.5-14.5); RDW Standard Deviation 44.7 fL (36.4-46.3); Red Blood Count 4.57 M/uL (4.70-6.10); White Blood Count 5.47 K/ul (4.8-10.8)
[2024-08-20] MEDS: INSULIN ASPART PER UNIT CHARGE SC SCH (07:57)
--- NOTE | 2024-08-20 08:12 | Pulmonary Consultation ---
Date of Consultation August 20, 2024 Assessment & Plan (1) Pleural effusion on left: (2) Acute respiratory failure with hypoxia: (3) Shortness of breath: (4) Ex-smoker: Plan CT chest 08/19/2024 personally reviewed: Large left-sided pleural effusion with minimal mediastinal shift to the right Compressive atelectasis of the left lower lobe Minimal mosaicism in the right upper lobe No significant mediastinal lymphadenopathy 2D echo 07/09/2024: EF 60-65%, grade 1 diastolic dysfunction, mild to moderate AAS, mildly dilated RV with normal function -- Acute hypoxic respiratory failure Likely secondary to large left-sided pleural effusion acute Respiratory BioFire negative for everything on 08/19/2024 BNP 125 -- Left-sided pleural effusion Large Likely post CABG -- Ex-smoker Approximately [id number] smoking history, quit in 1989 --Probable ABDIAS Recommend outpatient polysomnography Trial of BiPAP nightly and as needed shortness of breath --History of lung cancer in uncle who was a smoker Plan: For thoracentesis later today Recommend diuresis to keep the patient negative balance. Aim for -1 L on a daily basis Continue with incentive spirometry Case was discussed with RN as well as primary team Please note the above document was generated using voice recognition software. It may contain grammatical, syntax or spelling errors.Any formal questions or concerns about the content, text or information contained within the body of this dictation should be directly addressed to the provider for clarification. History of Present Illness Attending Physician: Ros Yates MD History of Present Illness 69-year-old male was admitted to the hospital because of shortness of breath Past medical history: Diabetes, coronary artery disease s/p CABG 07/09/2024, dyslipidemia Pulmonary consulted for pleural effusion At the time of examination patient's was in the room. Patient was saturating 98% on 2 L nasal cannula, I went down to 2 L He stated that he has been having worsening shortness of breath which has been going on for approximately 2 weeks. He used to have incentive spirometry on was able to do -1500 but in the recent couple of days it was only 500 mL. Shortness of breath is mostly on exertion. But he does complain of cough and brings up clear phlegm. He denies any chest pain No recent travel history. No recent trauma. Denied any nausea vomiting No dysuria, no diarrhea No unusual headache or blurry vision. 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 History of lung cancer in uncle who was a smoker Allergies Allergy/AdvReac Type Severity Reaction Status Date / Time levofloxacin [From Levaquin] Allergy Severe Anaphylaxis Unverified 07/04/24 08:00 Penicillins Allergy Unknown Unknown Unverified 07/04/24 07:58 Sulfa (Sulfonamide Allergy Unknown Unknown Unverified 07/04/24 07:58 Antibiotics) [id number] Reductase AdvReac Verified 07/04/24 07:58 Inhibitor Home Medications Medication Instructions Recorded Confirmed Type clotrimazole-betamethasone 1 1 applic topical BID 07/03/24 07/03/24 History %-0.05 % topical cream irbesartan 150 mg tablet 150 mg PO QAM 07/03/24 07/03/24 History tamsulosin 0.4 mg capsule 0.4 mg PO QAM 07/03/24 07/03/24 History aspirin 81 mg tablet,delayed 81 mg PO QAM #1 tab 07/05/24 Rx release bumetanide 1 mg tablet 1 mg PO QAM #1 tab 07/05/24 Rx carvedilol 12.5 mg tablet 12.5 mg PO BIDM #1 tab 07/05/24 Rx vitamin B complex (Vitamins B 1 cap PO QAM #1 cap 07/05/24 Rx Complex capsule) Patient History Medical History BPH (benign prostatic hyperplasia) Hypertension Diabetes Social History Smoking Status: Former smoker Second Hand Exposure: No; Do You Dip or Chew Tobacco: No; Hx Alcohol Use: No Hx Substance Use: No Preferred Language: Pashto Communication Ability: Effective 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 Required: No Beliefs That Will Affect Care: None Current Living Situation: Spouse Feels Safe at Home: Yes Safety Concerns: Feels Safe At This Time Assistive Devices: Glasses Review of Systems 2 Review of Systems: All systems reviewed & are unremarkable except as noted in HPI & below Physical Exam 2 Physical Exam: Constitutional: No acute distress HEENT: EOMI, PERRLA Respiratory system: Decreased air entry on the left side, no wheeze, no rhonchi, mild crackles bilateral lower lobe CVS: S1-S2 positive, positive 3 out of 6 systolic murmur appreciated best that apex Abdomen: Soft, nontender, nondistended, positive bowel sounds x4, obese Extremities: +2 pulses bilaterally radialis/ dorsalis pedis, no cyanosis, +2 pitting edema bilateral lower extremity Neuro: Awake alert oriented x3 Psych: Normal mood and affect G/U: No Benites Skin: no rashes, warm and dry Lymphatic: no cervical or axillary lymphadenopathy Results & Data Results & Data Vital Signs (Past 12 Hours) Vital Signs Temp Pulse Resp BP BP Pulse Ox O2 Del Method 08/20/24 07:16 36.5 C 95 H 19 132/81 98 Nasal Cannula 08/20/24 03:43 36.6 C 84 20 134/83 98 Nasal Cannula 08/20/24 00:17 36.4 C L 95 H 22 143/87 H 91 Room Air 08/20/24 00:14 Nasal Cannula 08/19/24 23:00 36.7 C 89 21 133/73 98 Nasal Cannula 08/19/24 22:00 89 25 H 132/78 99 Nasal Cannula 08/19/24 21:09 87 16 175/84 H 99 Nasal Cannula 08/19/24 20:36 94 H 15 180/97 H 93 Nasal Cannula 08/19/24 20:14 93 H 18 116/74 95 Room Air O2 Flow Rate 08/20/24 07:16 3 08/20/24 03:43 2 08/20/24 00:17 08/20/24 00:14 2 08/19/24 23:00 1 08/19/24 22:00 1 08/19/24 21:09 2 08/19/24 20:36 2 08/19/24 20:14 Laboratory Results 08/20/24 07:03 PG Care Time/CCT Total # of Minutes Spent Total Time Spent with Patient: Total time spent is greater than 50% in coordination of care (as documented) at patient's floor/unit and/or counseling patient: Coding Level of Care Code 08648 INT INP/OBS CARE 3/75MIN Diagnoses Pleural effusion on left J90 Acute respiratory failure with hypoxia J96.01 Shortness of breath R06.02 Ex-smoker Z87.891
[2024-08-20 08:13] LABS: Albumin Globulin Ratio 1.2 (0.9-2); Albumin Level 3.3 gm/dl (3.4-5.0); BUN Creatinine Ratio 12.4 (10-20); Bilirubin,Total 1.4 mg/dl (0.2-1.0); Calcium 9.1 mg/dl (8.6-10.3); Creatinine Clr Calc Pharmacy 120.5 ml/min; Globulin 2.7 gm/dl (2.5-4.0); Magnesium 1.6 mg/dl (1.7-2.4); Potassium 3.2 mmol/L (3.5-5.1)
[2024-08-20 08:33] LABS: INR 1.1 (0.9-1.1); Prothrombin Time 11.7 Seconds (9.0-12.0)
[2024-08-20] MEDS: CLOTRIMAZOLE/BETAMETHASONE CR 15 GM TUBE EXT SCH (09:23)
[2024-08-20] MEDS: ASPIRIN 81 MG ECTAB PO SCH (09:23)
[2024-08-20] MEDS: TAMSULOSIN HCL 0.4 MG CAP PO SCH (09:24)
[2024-08-20] MEDS: EZETIMIBE 10 MG TAB PO SCH (09:24)
[2024-08-20] MEDS: CLOPIDOGREL BISULFATE 75 MG TAB PO SCH (09:24)
[2024-08-20] MEDS: POTASSIUM CHLORIDE CRTAB 20 MEQ TABCR PO STA (10:41)
[2024-08-20] MEDS: MAGNESIUM SULFATE / D5W 1 GM/100 ML BAG IV SCH (10:41)
[2024-08-20 12:12] VITALS: PULSE 79; TEMP 98.1; O2SAT 92
--- NOTE | 2024-08-20 12:18 | Procedure Note ---
Procedure Note Date of Service August 20, 2024 Procedure: Diagnostic therapeutic ultrasound-guided catheter thoracentesis [facility] Attendant: Dr. Avery Whitley Indication: Left-sided pleural effusion Consent: Signed by patient and verified with timeout prior to procedure Anesthesia: 1% lidocaine without epinephrine local. Procedure: Consent was verified and timeout performed. Appropriate imaging studies were reviewed prior to the procedure. Patient was placed in a seated position and limited thoracic ultrasound was performed of the left chest. See separate imaging. Appropriate site above the diaphragm for thoracentesis was selected. The skin was prepped and draped in normal sterile fashion. Lidocaine was used for local analgesia. Fluid was aspirated via the finder needle. A small skin adeel was made with the scalpel and the catheter over the needle apparatus was advanced over the rib into the pleural space. Using the syringe one-way valve system, a total of 1750 mL's of dark serous cloudy fluid was removed. Procedure was terminated due to patient complaining of some lightheadedness. The catheter was removed and observed to be intact. A sterile dressing was applied. Post procedure chest x-ray was ordered. Fluid was sent for labs, culture and cytology. Complications: None Blood loss: None [facility] Procedure Codes (Charges) Pulmonary/Thoracic Procedure 1: Pulmonary and Thoracic: 87315 Thoracentesis w imaging Coding CPT Codes Pulmonary/Thoracic - Pulmonary and Thoracic: 07266 Thoracentesis w imaging ([id number]) Additional Codes Date of Service ([facility].SURGERY)
--- NOTE | 2024-08-20 12:36 | Electrocardiogram Report ---
Test Reason : Blood Pressure : */* mmHG Vent. Rate : 91 BPM Atrial Rate : 91 BPM P-R Int : 154 ms QRS Dur : 88 ms QT Int : 392 ms P-R-T Axes : 38 28 145 degrees QTcB Int : 482 ms Sinus rhythm with Premature supraventricular complexes Abnormal ECG When compared with ECG of 03-Jul-2024 10:15, Premature supraventricular complexes are now Present Vent. rate has increased by 31 bpm Nonspecific T wave abnormality, worse in Inferior leads T wave inversion now evident in Anterior leads QT has lengthened Confirmed by Ashish Nicholas ([id number]) on 08/20/2024 12:36:01 PM Referred By: Confirmed By: Ashish Nicholas
--- NOTE | 2024-08-20 12:48 | XRay Report ---
XR chest 1V portable CLINICAL HISTORY: S/P Thoracentesis COMPARISON STUDY: 08/19/2024 FINDINGS: Stable CABG. Stable cardiomegaly without pulmonary vascular congestion. There is mild hazy opacity at the left lower lung, improved. No pneumothorax. IMPRESSION: No pneumothorax. ACT 112: Negative or not required by law. Electronically signed by: Igor Reagan M.D. 08/20/2024 12:46 PM
[2024-08-20 13:19] LABS: Appearance Pleural Fluid Hazy; Color Pleural Fluid Yellow; RBC Pleural Fluid Auto 7000 /uL; Source Pleural Fluid Left Lung; WBC Pleural Fluid Auto 526 /uL
[2024-08-20 13:30] LABS: Total Protein Pleural Fluid 4.1 gm/dl
[2024-08-20 13:36] LABS: Albumin Level 3.2 gm/dl (3.4-5.0); Bilirubin,Total 1.4 mg/dl (0.2-1.0); Total Protein 5.9 gm/dl (6.0-8.3)
[2024-08-20 13:56] LABS: Lymphocytes, Fluid 71 %; Mono,Macrophage,Mesothelial 23 %; Neutrophils, Fluid 6 %
--- NOTE | 2024-08-20 16:06 | Discharge Summary ---
Discharge Summary Date of Service August 20, 2024 Principal Dx & Hospital Course #1 = Principal Diagnosis (1) Pleural effusion on left: (2) Acute respiratory failure with hypoxia: (3) CAD (coronary artery disease), [place] coronary artery: (4) Hx of CABG: (5) Aortic stenosis, moderate: Plan 69-year-old male with PMH of morbid obesity, hyperlipidemia, DM2, and CAD, hx of recent CABG x3 here due to worsening dyspnea and weakness on legs here with large left pleural effusion and hypoxia #Pleural effusion on left/Hypoxia requiring 4LNC: Chest CT scan shows no evidence of PE or pericardial effusion. Large left pleural effusion feeling approximate two thirds left hemithorax. Atelectasis of the left lung with a small amount of central edema on the right. No pneumothorax. [facility] (Dr. Mansfield) reached out to by ED provider: Ok to drain here. Effusion secondary to recent CABG Pt has been taking lasix 20mg daily for the last 2 weeks and also has noticed ongoing ankle edema Pulmonology [id number] thoracentesis for 1750mL of dark cloudy serous fluid, transudative by Light's criteria, pH 7.48 Respiratory viral panel here is negative. Repeat CXR after thoracentesis improved, was weaned off O2 and walked with RN- did not drop below POx 92% -Increase lasix to 40 mg po daily x 2 weeks plus KCl 10 meq po daily -Check BMP in 1 week with PCP -Has f/u with Cardiology scheduled in 2 weeks -F/u with PULM in 2 weeks -Continue ICS he has at home #CAD/History of coronary artery bypass graft x 3: CABG x3 (CASEY-LAD, SVG-OM2, SVG-Ramus) by Dana Luna on 07/09/2024. GAYLE 07/09 Normal LV size and systolic function. LVEF 60-65%. Grade 1 diastolic dysfunction Mildly dilated RV with normal RV systolic function. Mild to moderate Aortic stenosis Stable -continue home ASA, Plavix, metoprolol 50mg po bid, Zetia -f/u with Cardiology in 2 weeks as planned #Type 2 diabetes mellitus: controlled Resume home pioglitazone on discharge #Hyperlipidemia: statin intolerant Continue Ezetimibe #HTN Continue home metoprolol Patient take LAsix as needed for leg swelling - hold #Hypomagnesemia/Hypokalemia: Replaced -start KCl 10 meq po daily on discharge along with the lasix -follow BMP, Mag in 1 week Notes For Next Care Provider Check BMP, Mag level in 1 week Medication Changes From Visit Increased lasix to 40mg po daily Added KCl 10 meq po qAM Admission HPI Per Admitting Provider Patient is a 69 y/o male with PMh of diabetes, htn and CAD with recent CABG x3 that presented today due to worsening dyspnea and leg weakness. He states having worsening leg Edema which he took his lasix PRN. He denied any chest pain. He was recently admitted [facility] for [place] last month. He was feeling well until the last 4 days when he started to feel more tired and SOB. Worsen with ambulation.He refers he had been doing his spirometer at home, but refers recently being more difficult. Denied any fevers or chills, cough, nausea, abdominal pain, or vomiting. He refers voiding ok. [facility] record reviewed. Had CABG x3 (CASEY-LAD, SVG-OM2, SVG-Ramus) by Dana Luna on 07/09/2024. follow with Cardiology Surgeon outpatient. Discharge Exam Constitutional WD/WN, vitals as above Respiratory normal respiratory effort Auscultation: + diminished lung sounds (left base) and + crackles (left base) Cardiovascular Rate/Rhythm: regular rate and regular rhythm Heart Sounds: + murmur (2/6 OMAIRA at RUSB) Extremities: + edema (trace pitting edema ankles bilat) Discharge Plan Discharge Items Patient Disposition: Home - Home Health Services Reason For Visit: LEFT PLEURAL EFFUSION Discharge Diagnosis: Left pleural effusion Hypoxia Activity: Resume your previous activity Non-emergency contact: Primary Care Provider, [employer] Operator and [employer]'S Offsider Call non-emergency contact if: you have any medication questions and your symptoms worsen Follow-up/Referrals: Ashish Nicholas MD [Physician] - 09/03/24 3:00 pm (Follow up as previously scheduled on 09/03) Avery Whitley MD, [facility] [Physician] - (Follow up within 2 weeks---Dr. Whitley's office will call you with an appointment. ) Zach Pollock MD [Primary Care Provider] - (Follow up within 1-2 weeks. We will call you in am with an appointment with your PCP. ) Diet: Low Sodium (2gm) Fluids: 1800ml (7 cups) Addtl Attending Provider Instructions: You had a large amount of fluid drained from around your left lung. Please increase your lasix dose to 40mg daily and take a potassium tablet with it. At your Cardiology appointment, Dr. Nicholas can let you know if it is ok to stop taking the lasix at that point. Please have your PCP check a basic metabolic panel to check your potassium levels and kidney function in 1 week. Continue using your incentive spirometer at least 4-5 times per day to help re- expand your lung. Pending Studies at Discharge: Yes (pleural fluid culture and cytology) Stand-Alone Forms: My [facility], Smoking Cessation Medications and DC Order Prescriptions: New furosemide [Lasix] 40 mg tablet 40 mg PO QAM Qty: 14 0RF potassium chloride 10 mEq capsule, extended release 10 meq PO DAILY Qty: 14 0RF Continued tamsulosin 0.4 mg capsule 0.4 mg PO QAM clotrimazole-betamethasone 1-0.05 % cream 1 applic TOPICAL BID aspirin 81 mg Tablet,Delayed Release (Dr/Ec) 81 mg PO QAM Qty: 1 0RF pioglitazone 45 mg tablet 45 mg PO DAILY clopidogrel 75 mg tablet 75 mg PO QAM pantoprazole [Protonix] 40 mg Tablet,Delayed Release (Dr/Ec) 40 mg PO DAILY metoprolol tartrate 50 mg tablet 50 mg PO BID ezetimibe 10 mg tablet 10 mg PO DAILY Discharge Orders: Discharge Order (Routine); Ordered 08/20/24 Ordered By: Ros Yates Admission Data Admit Date/Time: 08/19/24 22:36 Attending Provider: Ros Yates Admit Provider: Leila Gonzalez Primary Care Provider: Zach Pollock Other Providers: Donnie Garcia; Avery Whitley Hospital Stay Data Consultations 08/19/24 21:27 Consult Pulmonology Routine ED Decision to Admit Stat Diagnostic Imagining Performed 08/19/24 18:38 CT angio chest PE protocol Stat 08/20/24 10:07 US point of care ultrasound Urgent Pending Results Patient Have Any Pending Studies at Discharge: Yes (pleural fluid culture and cytology) Discharge Instructions Given to Patient (Per Discharging Provider) You had a large amount of fluid drained from around your left lung. Please increase your lasix dose to 40mg daily and take a potassium tablet with it. At your Cardiology appointment, Dr. Nicholas can let you know if it is ok to stop taking the lasix at that point. Please have your PCP check a basic metabolic panel to check your potassium levels and kidney function in 1 week. Continue using your incentive spirometer at least 4-5 times per day to help re- expand your lung. Total Time Total Time Spent Total Time Spent (In Minutes): 35 min Total Time Includes: Examination of the Patient, Discharge Planning, Medication Reconciliation and Communication With Other Providers Coding Level of Care Code 94347 INP/OBS DISCH >30 MIN Diagnoses Pleural effusion on left J90 Acute respiratory failure with hypoxia J96.01 CAD (coronary artery disease), [place] coronary artery I25.10 Hx of CABG Z95.1 Aortic stenosis, moderate I35.0
[2024-08-20 16:23] VITALS: BP 134/83
--- NOTE | 2024-08-20 19:24 | Billing Data ---
Date of Service August 20, 2024 Coding Level of Care Code 59183 INT INP/OBS CARE
== END 2024-08-20 17:21 | disposition home or self-care (01) | DRG 205 ==
LOC: ED 16:56 → 2S 22:36 → SUATTDRO 22:36 → 2S 23:05

== ENCOUNTER 2024-09-08 01:57 | Observation (INO) ==
[2024-09-08 02:32] LABS: Basophils # (auto) 0.03 K/uL (0.00-0.20); Basophils % (auto) 0.4 %; Eosinophils # (auto) 0.04 K/uL (0.00-0.50); Eosinophils % (auto) 0.6 %; Hematocrit (blood only) 44.6 % (42.0-52.0); Hemoglobin 14.3 g/dl (14.0-18.0); Immature Granulocytes # (auto) 0.02 K/uL (0.01-0.20); Immature Granulocytes % (auto) 0.3 %; Lymphocytes # (auto) 1.65 K/uL (1.20-3.40); Lymphocytes % (auto) 24.7 %; Mean Corpuscular Hgb Conc 32.1 g/dL (32.0-36.0); Mean Corpuscular Volume 84.3 fL (80.0-100.0); Mean Platelet Volume 8.5 fL (9.4-12.4); Monocytes # (auto) 0.46 K/uL (0.11-0.59); Monocytes % (auto) 6.9 %; Neutrophils # (auto) 4.47 K/uL (1.40-6.50); Neutrophils % (auto) 67.1 %; Partial Thromboplastin Time 27 Seconds (21-31); Platelet Count 370 K/uL (130-400); Prothrombin Time 11.2 Seconds (9.0-12.0); RDW Coefficient of Variation 14.6 % (11.5-14.5); RDW Standard Deviation 44.8 fL (36.4-46.3); Red Blood Count 5.29 M/uL (4.70-6.10); White Blood Count 6.67 K/ul (4.8-10.8)
[2024-09-08 02:48] LABS: Alanine Aminotransferase 9 U/L (7-52); Albumin Globulin Ratio 0.9 (0.9-2); Albumin Level 3.5 gm/dl (3.4-5.0); Alkaline Phosphatase 70 U/L (34-104); Anion Gap 8 (3-11); Aspartate Aminotransferase 21 U/L (13-39); BUN Creatinine Ratio 22.9 (10-20); Bilirubin,Total 0.8 mg/dl (0.2-1.0); Blood Urea Nitrogen 24 mg/dl (6-23); Calcium 9.4 mg/dl (8.6-10.3); Carbon Dioxide 35 mmol/L (21-32); Chloride 89 mmol/L (98-107); Globulin 3.7 gm/dl (2.5-4.0); Glucose 147 mg/dl (70-99(Fasting)); Potassium 3.9 mmol/L (3.5-5.1); Sodium 132 mmol/L (136-145); Total Protein 7.2 gm/dl (6.0-8.3)
[2024-09-08 02:57] LABS: Troponin I High Sensitivity 610.7 pg/ml (0-20)
--- NOTE | 2024-09-08 03:49 | History & Physical Report ---
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 Patient was transferred to [facility] for a CABG 07/09/2024. 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 He was discharged on Lasix 40 Mg daily which he has been compliant with. Patient returns with difficulty taking deep breaths x 1 day. CXR in ED showed progression of left pleural effusion. Patient will likely need repeat thoracentesis may be considered for Pleurx. He is being admitted by medicine team with pulmonology consult, possible need for IR consult. #Tanja syndrome/left pleural effusion/history of CABG CABG 07/09/2024 at [facility] left thoracentesis 08/20; 1750 mL of dark cloudy serous fluid, transudative by lights criteria, pH 7.48 - pleural effusion greatly improved on CXR 08/20 after thoracentesis Lasix once increased from 20 Mg daily to 40 Mg daily CXR 09/08/24 showing progression of left pleural effusion being moderate in today's study, subsegmental collapse of left lower and middle lung zones with atelectasis static changes of left upper lung zone defer IV diuretics as likely will not greatly benefit patient Incentive spirometry Pulmonology consulted Anticipate thoracentesis; will hold aspirin and Plavix, resumption to be determined by pulmonology or IR - would likely benefit from Pleurx with recurrence of pleural effusion oxygen as needed, nonhypoxic on admission #Elevated troponin Trop 610.7; 2-hour repeat ordered and trend every 6 troponin was down to 24 during recent admission 08/19 EKG showed NSR with artifact, repeat ordered; however EKG appears similar to previous admission patient denies chest pain or dyspnea Likely secondary to demand with effusion above and recent CABG in June Monitor on telemetry EKG with chest pain as needed #UTI Patient stated he has UTI failing Macrobid treatment and now on Keflex Will transition to cefepime as hospital acquired with recent admissions no cultures on file UA and culture ordered #hyponatremia/hypomagnesemia Sodium 132, mg 1.6 Likely 2/2 diuretic use asymptomatic holding lasix 2g IV mag ordered on admission Trend BMP and mg #oral irritation Left upper oral irritation at site of appliance Magic mouthwash ordered If fails to resolve continue dental paste with triamcinolone acetonide #type II DM pioglitazone Likely contributing to edema; will hold and recommend discontinuing on long-term setting SSI ordered Chronic stable diagnoses: HLDcontinue statin and Zetia GERDcontinue PPI HTNcontinue metoprolol VTE ppx: scds, defer chemical ppx as likely thoracentesis Diet: heart healthy, t2dm Dispo: pcu Admission and Anticipated Discharge Date Admission Date: 09/08/24 History of Present Illness Chief Complaint: cardiac assessment Primary Care Provider: Zach Pollock MD Patient is a 69-year-old male with a past medical history of type II DM, hyperlipidemia, and hypertension. Patient was transferred to [facility] for a CABG 07/09/2024. 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 He was discharged on Lasix 40 Mg daily which he has been compliant with. Patient returns with difficulty taking deep breaths x 1 day. CXR in ED showed progression of left pleural effusion. Patient will likely need repeat thoracentesis may be considered for Pleurx. He is being admitted by medicine team with pulmonology consult, possible need for IR consult. Patient seen at bedside with his present. He stated since yesterday he has had difficulty with deep breaths but denies dyspnea. He also has a mild chronic cough. He was doing well after thoracentesis and is frustrated that the effusion has returned. He has been compliant on his Lasix and stated he may have missed 1 day in the past 2 weeks. He just had appointments with pulmonology and cardiology this week. He stated he is also undergoing treatment for UTI with Keflex after failing Macrobid treatment. He has approximately 4 to 5 days left of the Keflex. He stated he has dysuria and increasing urinary frequency which are improving on the Keflex. Patient is at risk for hospital- acquired/catheter associated UTI with recent hospitalizations and procedure, will transition to IV antibiotic coverage. Patient has been compliant on Plavix and baby aspirin which will be held in anticipation of thoracentesis. Regarding his elevated troponin, patient denies any chest pain. Patient denies fever, chills, headache, dizziness, lightheadedness, abdominal pain, nausea, vomiting, diarrhea. He has chronic lower extremity edema that is improving with BAR[facility]. He does not use nicotine products, was a former smoker for 15 years but quit in 1989. He does not drink alcohol. He is not on oxygen at baseline, no CPAP/BiPAP. He took his home medications this evening. He wishes to be full code. Allergies Allergy/AdvReac Type Severity Reaction Status Date / Time levofloxacin [From Levaquin] Allergy Severe Anaphylaxis Unverified 09/03/24 14:57 Penicillins Allergy Unknown Unknown Unverified 09/03/24 14:57 Sulfa (Sulfonamide Allergy Unknown Unknown Unverified 09/03/24 14:57 Antibiotics) Homcank-JJB-PvE Reductase AdvReac Verified 09/03/24 14:57 Inhibitor Home Medications Medication Instructions Recorded Confirmed Type clotrimazole-betamethasone 1 1 applic topical BID 07/03/24 09/08/24 History %-0.05 % topical cream tamsulosin 0.4 mg capsule 0.4 mg PO QAM 07/03/24 09/08/24 History aspirin 81 mg tablet,delayed 81 mg PO QAM #1 tab 07/05/24 09/08/24 Rx release pantoprazole 40 mg tablet,delayed 40 mg PO DAILY 08/20/24 09/08/24 History release (Protonix) clopidogrel 75 mg tablet 75 mg PO QAM #90 tabs 09/03/24 09/08/24 Rx ezetimibe 10 mg tablet 10 mg PO DAILY #90 tabs 09/03/24 09/08/24 Rx furosemide 40 mg tablet (Lasix) 40 mg PO QAM #90 tabs 09/03/24 09/08/24 Rx metoprolol tartrate 50 mg tablet 50 mg PO BID #180 tabs 09/03/24 09/08/24 Rx potassium chloride 10 mEq 10 meq PO DAILY #90 caps 09/03/24 09/08/24 Rx capsule,extended release cephalexin 500 mg capsule 500 mg PO BID 09/08/24 09/08/24 History triamcinolone acetonide 0.1 % 1 applic dental TID PRN mouth 09/08/24 Rx dental paste irritation #5 grams 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 Elevated troponin (Acute) Pleural effusion on left (Acute) Hx of CABG Aortic stenosis Hypertension CAD (coronary artery disease), [place] coronary artery Ex-smoker Shortness of breath Acute respiratory failure with hypoxia Hypomagnesemia Weakness (Acute) Pleural effusion on left (Acute) History of coronary artery bypass graft x 3 (Acute) PAYNE (dyspnea on exertion) (Acute) B12 deficiency Morbid obesity with BMI of 50.0-59.9, adult Type 2 diabetes mellitus Hyperlipidemia NSTEMI (non-ST elevated myocardial infarction) Benign essential hypertension Atherogenic dyslipidemia Elevated troponin I level (Acute) Fatigue Chest pain, rule out acute myocardial infarction Heart murmur (Acute) Chest pain, exertional (Acute) Medical History (Updated 09/08/24 @ 16:44 by Michelle Flores DO) Aortic stenosis, moderate BPH (benign prostatic hyperplasia) Diabetes Social History Smoking Status: Never smoker Tobacco Type: Cigarettes Second Hand Exposure: No; Do You Dip or Chew Tobacco: No; Hx Alcohol Use: No Hx Substance Use: No Preferred Language: Dutch Communication Ability: Effective Supervisor Hanging And Trimming Required: No Beliefs That Will Affect Care: None Current Living Situation: Spouse and Family Feels Safe at Home: Yes Assistive Devices: Denture - Lower and Glasses Review of Systems Review of Systems: see HPI Physical Exam Physical Exam: The patient is awake, alert and oriented 3, normocephalic and atraumatic, in no acute distress. Non-toxic appearing. HEENT- EOMI, mucous membranes moist. Hearing grossly intact. Heart-normal S1 and S2. No murmurs, rubs or gallops. Lungs-decreased bilaterally, no respiratory distress, no accessory muscle use. Abdomen-normal bowel sounds and soft. No ascites noted. Non-tender. Extremities- no clubbing, cyanosis, or edema. Rheumatologic-normal range of motion. Psychiatric-normal affect. Results & Data Results & Data Vital Signs (Past 12 Hours) Vital Signs Temp Pulse Pulse Resp BP Pulse Ox O2 Del Method 09/08/24 03:17 65 09/08/24 03:16 76 18 95 Room Air 09/08/24 03:16 68 18 95 Room Air 09/08/24 03:16 95 Room Air 09/08/24 02:01 36.5 C 75 20 163/80 H 96 Room Air Laboratory Results Reviewed CBC, PT/INR, CMP, troponin ordered mag and UA Diagnostic Findings reviewed cxr Medications Administered ed - none admission - none ECG Additional Comments: NSR with ST abnormalities but much artifact Repeat EKG ordered Code Status & VTE Plan Code Status full VTE Prophylaxis Plan VTE Prophylaxis will be ordered: Yes Supervising Physician Co-Signing Physician Notes Attending addendum: I have physically seen this patient, have supervised the YEMI's activities, and agree with the H&P unless as otherwise noted. Assessment and Plan: The patient is a 69-year-old male with a past medical history including diabetes mellitus type 2, hyperlipidemia, hypertension, morbid obesity, aortic stenosis, status post CABG 07/09/2024. He was admitted from 08/19-08/20 for Tanja syndrome/left pleural effusion was drained by thoracentesis removing 1750 mL. He was discharged on Lasix 40 mg daily, which he reports taking as directed. He presents to the emergency department with progressive shortness of breath over the past day. Chest x-ray in emergency department shows recurrence of left pleural effusion, for which patient is being readmitted to the [facility] this evening. #Recurrent left pleural effusion- Status post CABG 07/09/2024 at [facility] Status post left thoracentesis 08/20, with removal of 1750 mL of dark cloudy serous fluid, transudative. Recurrence of left pleural effusion on chest x-ray this evening On furosemide 40 mg daily as an outpatient N.p.o. after midnight Consult IR/pulmonology for drainage again Temporarily hold aspirin and Plavix, but likely can continue with thoracentesis as noted Elevated troponin- Troponin is 610.7, with follow-up pending Follow per protocol Likely secondary to demand as noted Diabetes mellitus type 2- Patient reports pioglitazone does well with taking care of his blood sugars, however, is likely contributing significantly to edema, and should be ready considered as usually or decreasing dosage Placed on Accu-Cheks with NovoLog SSI Remaining orders and notations as noted PG Care Time/CCT Total # of Minutes Spent Total Time Spent with Patient: Total time spent is greater than 50% in coordination of care (as documented) at patient's floor/unit and/or counseling patient: Coding Level of Care Code 76191 INT INP/OBS CARE 3/75MIN Diagnoses 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
--- NOTE | 2024-09-08 04:03 | Emergency Department Note ---
Impression & Plan Pleural effusion on left, Elevated troponin, Aphthous ulcer of mouth admit to the [facility] ED Provider Note NAME: DONALD LANGSTON AGE: 69 SEX: Male INFORMANT: Patient ED PROVIDER(S): Michelle Flores DO CHIEF COMPLAINT: "decreased capacity to breathe" PLAN: Disposition: admit to the [facility] MEDICAL DECISION MAKING: this is a 69-year-old male patient who underwent CABG at [facility] recently and has recurrent pleural effusion on the left. He is followed by pulmonary medicine. he has undergone thoracentesis in the past. There has been reaccumulation of fluid diagnosed on ultrasound last week. Patient was to be reassessed this week but was unable to make it over the weekend stating that he had decreased capacity to breathe. Laboratory studies showed no leukocytosis. H&H were stable. Coagulation studies were normal. Sodium was slightly low at 132. BUN was slightly elevated at 24. Glucose was 147 and troponin was significantly elevated at 610. Chest x-ray showed significant increased accumulation of the pleural effusion on the left. Patient remains hemodynamically stable and O2 saturation remained stable on room air. The patient is currently taking antibiotics for a urinary tract infection. He continues to have significant ulceration of his soft palate that is quite painful for him. There is no evidence of significant thrush. Care/management discussed with: manager agriculture and [facility] Triage Nursing notes: reviewed and agree with them. 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 Differential Diagnosis: Reaccumulation of pleural effusion on the left, NSTEMI, exacerbation of Tanja syndrome, congestive heart failure Diagnostics, independently interpreted by me: ECG: Normal sinus rhythm at a rate of [address] segment elevation or signs of ischemia. There is no ectopy. 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 Patient was evaluated by pulmonology earlier this week by ultrasound and noted to have reaccumulation of some fluid in the left lung. He was to be reevaluated coming week to see if he would require repeat thoracentesis but did not make it over the weekend as he describes decreased capacity to breathe. PAST MEDICAL HISTORY: See Below, PAST SURGICAL HISTORY: See Below, SOCIAL HISTORY: See Below, HOME MEDICATIONS: See list ALLERGIES: See list VITALS: See Below PHYSICAL EXAMINATION: HEENT: Head - normocephalic and atraumatic.Pupils are equal, round, and reactive to light. Extraocular eye muscles are intact, and sclera are anicteric. Nose - moist nasal mucosa without discharge. Mouth - moist buccal mucosa. Aphthous ulcer formation of the soft palate just above the gumline on the left. Oropharynx is nonerythematous and there is no tonsillar exudate or edema noted. Neck: Supple; no JVD, nuchal rigidity, cervical lymphadenopathy Heart: Regular rate and rhythm. There is a normal S1 and S2 with no murmurs, clicks, or gallops appreciated. Lungs: Absent breath sounds three fourths of the way up on the left. Right- sided breath sounds are normal. Abdomen: Soft, completely nontender, nondistended, with good bowel sounds. There are no palpable pulsatile masses or hepatosplenomegaly. There is no guarding, rigidity, or rebound noted. Extremities: No evidence of cyanosis, clubbing, or edema. There are easily palpable peripheral pulses. Skin: [place], warm and dry with good turgor and no rashes. Emergency Department course: The patient was evaluated in room C-3. A complete history and physical was performed. An order was placed for continuous cardiac monitoring. The patient was in a normal sinus rhythm at a rate of 76. A twelve-lead EKG was obtained as described above. IV lock was initiated and labs were drawn as above. Portable chest x-ray was performed. I discussed the case with the [facility] Hospitalist and they will evaluate for further inpatient care and evaluation by interventional radiology/pulmonary medicine. 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 Elevated troponin (Acute) Pleural effusion on left (Acute) Hx of CABG Aortic stenosis Hypertension CAD (coronary artery disease), [place] coronary artery Ex-smoker Shortness of breath Acute respiratory failure with hypoxia Hypomagnesemia Weakness (Acute) Pleural effusion on left (Acute) History of coronary artery bypass graft x 3 (Acute) PAYNE (dyspnea on exertion) (Acute) B12 deficiency Morbid obesity with BMI of 50.0-59.9, adult Type 2 diabetes mellitus Hyperlipidemia NSTEMI (non-ST elevated myocardial infarction) Benign essential hypertension Atherogenic dyslipidemia Elevated troponin I level (Acute) Fatigue Chest pain, rule out acute myocardial infarction Heart murmur (Acute) Chest pain, exertional (Acute) Medical History (Updated 09/08/24 @ 16:44 by Michelle Flores DO) Aortic stenosis, moderate BPH (benign prostatic hyperplasia) Diabetes Social History Smoking Status: Never smoker Tobacco Type: Cigarettes Second Hand Exposure: No; Do You Dip or Chew Tobacco: No; Hx Alcohol Use: No Hx Substance Use: No Preferred Language: Sami Communication Ability: Effective Sap Portal Developer Required: No Beliefs That Will Affect Care: None Current Living Situation: Spouse and Family Feels Safe at Home: Yes Assistive Devices: Denture - Lower and Glasses Allergies Allergies Allergy/AdvReac Type Severity Reaction Status Date / Time levofloxacin [From Levaquin] Allergy Severe Anaphylaxis Unverified 09/03/24 14:57 Penicillins Allergy Unknown Unknown Unverified 09/03/24 14:57 Sulfa (Sulfonamide Allergy Unknown Unknown Unverified 09/03/24 14:57 Antibiotics) [id number] Reductase AdvReac Verified 09/03/24 14:57 Inhibitor Home Meds Home Medications Medication Instructions Recorded Confirmed clotrimazole-betamethasone 1 1 applic topical BID 07/03/24 09/08/24 %-0.05 % topical cream tamsulosin 0.4 mg capsule 0.4 mg PO QAM 07/03/24 09/08/24 pantoprazole 40 mg tablet,delayed 40 mg PO DAILY 08/20/24 09/08/24 release (Protonix) pioglitazone 45 mg tablet 45 mg PO DAILY 08/20/24 09/08/24 cephalexin 500 mg capsule 500 mg PO BID 09/08/24 09/08/24 Previous Rx's Medication Instructions Recorded aspirin 81 mg tablet,delayed 81 mg PO QAM #1 tab 07/05/24 release clopidogrel 75 mg tablet 75 mg PO QAM #90 tabs 09/03/24 ezetimibe 10 mg tablet 10 mg PO DAILY #90 tabs 09/03/24 furosemide 40 mg tablet (Lasix) 40 mg PO QAM #90 tabs 09/03/24 metoprolol tartrate 50 mg tablet 50 mg PO BID #180 tabs 09/03/24 potassium chloride 10 mEq 10 meq PO DAILY #90 caps 09/03/24 capsule,extended release Results & Data (ED) Vital Signs Vital Signs - 24 hr 09/08/24 02:01 09/08/24 03:16 09/08/24 03:16 Temperature 36.5 C Temperature Source Temporal Artery Scan Pulse Rate 75 Pulse Rate [Apical] 68 Pulse Rhythm Regular Pulse Rhythm [Apical] Regular Pulse Strength Normal Pulse Strength [Apical] Normal Respiratory Rate 20 18 Respiratory Effort / Characteristics Non-Labored Spontaneous Non-Labored Spontaneous Respiratory Depth Normal Normal Respiratory Pattern Regular Regular Blood Pressure 163/80 H Blood Pressure Mean 107 Blood Pressure Position Sitting Blood Pressure Position [Right Arm] Semi-fowlers Pulse Oximetry 96 95 95 Oxygen Delivery Method Room Air Room Air Room Air Sepsis Recent Fever Within 48 Hours No Sepsis New/Unexplained Change in Mental Status No Sepsis Action Taken by Nursing No Action Required 09/08/24 03:16 09/08/24 03:17 Temperature Temperature Source Pulse Rate 76 65 Pulse Rate [Apical] Pulse Rhythm Regular Pulse Rhythm [Apical] Pulse Strength Pulse Strength [Apical] Respiratory Rate 18 Respiratory Effort / Characteristics Respiratory Depth Respiratory Pattern Blood Pressure Blood Pressure Mean Blood Pressure Position Blood Pressure Position [Right Arm] Pulse Oximetry 95 Oxygen Delivery Method Room Air Sepsis Recent Fever Within 48 Hours Sepsis New/Unexplained Change in Mental Status Sepsis Action Taken by Nursing Laboratory Data 09/08/24 02:09 09/08/24 02:09 Lab Results 09/08/24 09/08/24 Range/Units 02:09 04:26 WBC 6.67 (4.8-10.8) K/ul RBC 5.29 (4.70-6.10) M/uL Hgb 14.3 (14.0-18.0) g/dl Hct 44.6 (42.0-52.0) % MCV 84.3 (80.0-100.0) fL MCH 27.0 (25.0-34.0) pg MCHC 32.1 (32.0-36.0) g/dL RDW Std Deviation 44.8 (36.4-46.3) fL RDW Coeff of Malik 14.6 H (11.5-14.5) % Plt Count 370 (130-400) K/uL MPV 8.5 L (9.4-12.4) fL Immature Gran % (Auto) 0.3 % Neut % (Auto) 67.1 % Lymph % (Auto) 24.7 % [place] % (Auto) 6.9 % Eos % (Auto) 0.6 % Baso % (Auto) 0.4 % Neut # (Auto) 4.47 (1.40-6.50) K/uL Lymph # (Auto) 1.65 (1.20-3.40) K/uL [place] # (Auto) 0.46 (0.11-0.59) K/uL Eos # (Auto) 0.04 (0.00-0.50) K/uL Baso # (Auto) 0.03 (0.00-0.20) K/uL Immature Gran # (Auto) 0.02 (0.01-0.20) K/uL PT 11.2 (9.0-12.0) Seconds INR 1.0 (0.9-1.1) APTT 27 (21-31) Seconds PTT Ratio 1.0 Sodium 132 L (136-145) mmol/L Potassium 3.9 (3.5-5.1) mmol/L Chloride 89 L (98-107) mmol/L Carbon Dioxide 35 H (21-32) mmol/L Anion Gap 8 (3-11) BUN 24 H (6-23) mg/dl Creatinine 1.05 (0.6-1.4) mg/dl Est Cr Clr Drug Dosing Not Reportable eGFR 77.80 BUN/Creatinine Ratio 22.9 H (10-20) Glucose 147 H (70-99(Fasting)) mg/dl Calcium 9.4 (8.6-10.3) mg/dl Magnesium 1.6 L (1.7-2.4) mg/dl Total Bilirubin 0.8 (0.2-1.0) mg/dl AST 21 (13-39) U/L ALT 9 (7-52) U/L Alkaline Phosphatase 70 (34-104) U/L Troponin I High Sens 610.7 H* 542.5 H* (0-20) pg/ml Total Protein 7.2 (6.0-8.3) gm/dl Albumin 3.5 (3.4-5.0) gm/dl Globulin 3.7 (2.5-4.0) gm/dl Albumin/Globulin Ratio 0.9 (0.9-2) Administered Medications Aspirin (Aspirin 81 Mg Ectab) 81 mg PO QAM [facility] Stop: 10/08/24 10:59 Last Admin: 09/08/24 12:23 Dose: 81 mg Documented By: VANESSA Ezetimibe (Ezetimibe 10 Mg Tab) 10 mg PO DAILY [facility] Stop: 10/08/24 08:59 Last Admin: 09/08/24 08:49 Dose: 10 mg Documented By: RUDOLPH Furosemide (Furosemide 40 Mg Tab) 40 mg PO QAM [facility] Stop: 10/08/24 10:59 Last Admin: 09/08/24 12:23 Dose: 40 mg Documented By: VANESSA Cefepime HCl (Maxipime 2000mg) 1,000 mg in 10 mls @ 5 mls/min IV Q8H [facility]; Protocol Stop: 09/18/24 04:59 Last Admin: 09/08/24 14:19 Dose: 5 mls/min Documented By: Admin: 09/08/24 06:46 Dose: 5 mls/min Documented By: IDD Insulin Aspart (Insulin Aspart Per Unit Charge) 0 units SC ACHS [facility] Stop: 10/08/24 07:29 Last Admin: 09/08/24 12:23 Dose: 1 units Documented By: ARV Co-signed By: MS Admin: 09/08/24 10:00 Dose: Not Given Documented By: RUDOLPH Metoprolol Tartrate (Metoprolol Tartrate 50 Mg Tab) 50 mg PO BID [facility] Stop: 10/08/24 08:59 Last Admin: 09/08/24 08:50 Dose: 50 mg Documented By: RUDOLPH Multi-Ingredient Mouthwash/Gargle (First - Mouthwash Blm 5 Ml Udp) 5 ml PO Q6H [facility] Stop: 10/08/24 05:59 Last Admin: 09/08/24 13:18 Dose: 5 ml Documented By: Admin: 09/08/24 06:45 Dose: 5 ml Documented By: CHAIM Pantoprazole Sodium (Pantoprazole 40 Mg Tab) 40 mg PO DAILY [facility] Stop: 10/08/24 08:59 Last Admin: 09/08/24 08:50 Dose: 40 mg Documented By: RUDOLPH Potassium Chloride (Potassium Chloride 10 Meq Tabcr) 10 meq PO DAILY [facility] Stop: 10/08/24 08:59 Last Admin: 09/08/24 08:50 Dose: 10 meq Documented By: RUDOLPH Tamsulosin HCl (Tamsulosin Hcl 0.4 Mg Cap) 0.4 mg PO QAM [facility] Stop: 10/08/24 08:59 Last Admin: 09/08/24 08:49 Dose: 0.4 mg Documented By: RUDOLPH Discontinued Medications Magnesium Sulfate/Dextrose (Magnesium Sulfate / D5w) 1 gm in 100 mls @ 50 mls/hr IV Q2H [facility] Stop: 09/08/24 09:14 Last Infusion: 09/08/24 11:57 Dose: Infused Documented By: Admin: 09/08/24 08:49 Dose: 50 mls/hr Documented By: Infusion: 09/08/24 08:46 Dose: Infused Documented By: Admin: 09/08/24 06:46 Dose: 50 mls/hr Documented By: CHAIM Discharge Plan Visit Data Chief Complaint: Cardiac Assessment Stated Complaint: FLUID AROUND LUNG ED Provider: Michelle Flores Discharge Problem: Pleural effusion on left, Elevated troponin, Aphthous ulcer of mouth Patient Disposition: Admitted As Inpatient Discharge Instructions Interventions: ED Discharge Assessment Last Done: 09/08/24 05:13
--- NOTE | 2024-09-08 04:22 | XRay Report ---
EXAM: XR chest 1V portable CLINICAL HISTORY: Chest pain, nonspecific TECHNIQUE: An X-ray image of the chest is obtained in AP projection. COMPARISON: 08/20/2024. FINDINGS: Pulmonary Parenchyma: Progression of the left pleural effusion seen silhouetting cardiac shadow. subsegmental collapse of the left lower and middle lung zones with atelectatic changes of the left upper lung zone. Clear right lung. No evidence of right pleural effusion or pleural thickening. Heart and Mediastinum: The cardiac size cannot be assessed. Prominent right hilar vascular markings; could be related to congestion. No mediastinal widening or masses. No hilar or mediastinal lymphadenopathy. Bony Thorax: Sternotomy wires are seen. IMPRESSION: 1. Progression of the left pleural effusion being moderate in today's study seen silhouetting cardiac shadow. subsegmental collapse of the left lower and middle lung zones with atelectatic changes of the left upper lung zone. 2. Prominent right hilar vascular markings; could be related to congestion. 3. Unchanged rest of the study. Electronically signed by Tyler Briceno 09-08-2024 04:22 AM
[2024-09-08 05:05] LABS: Magnesium 1.6 mg/dl (1.7-2.4)
[2024-09-08 05:13] LABS: Troponin I High Sensitivity 542.5 pg/ml (0-20)
[2024-09-08] MEDS ORDERED: DOCUSATE SODIUM 100 MG CAP PO PRN (05:13)
[2024-09-08] MEDS ORDERED: CARBOHYDRATES FOR HYPOGLYCEMIA PO PRN (05:13)
[2024-09-08] MEDS ORDERED: ONDANSETRON INJ 2 MG/ML 2 ML VIAL IV PRN (05:13)
[2024-09-08] MEDS ORDERED: DEXTROSE 50% 50 ML SYRINGE IV PRN (05:13)
[2024-09-08] MEDS ORDERED: GLUCOSE 10 TAB/TUBE PO PRN (05:13)
[2024-09-08] MEDS ORDERED: ACETAMINOPHEN 325 MG TAB PO PRN (05:13)
[2024-09-08] MEDS ORDERED: GLUCAGON FOR INJ 1 MG VIAL SQ PRN (05:13)
[2024-09-08] MEDS ORDERED: GLUCOSE 40% GEL 15 GM TUBE PO PRN (05:13)
[2024-09-08] MEDS: FIRST - Mouthwash BLM 5 ML UDP PO SCH (06:45)
[2024-09-08] MEDS: CEFEPIME 1000MG 1,000 MG/10 ML SYR IV SCH (06:46)
[2024-09-08] MEDS: MAGNESIUM SULFATE / D5W 1 GM/100 ML BAG IV SCH (06:46)
[2024-09-08 06:53] LABS: Appearance Urine Clear (Clear); Bilirubin Urine Negative (Negative); Blood Urine Negative (Negative); Color Urine Yellow; Glucose Urine UA Negative (Negative); Ketones Urine Negative (Negative); Leukocyte Esterase Urine Negative (Negative); Nitrite Urine Negative (Negative); Protein Urine Negative (Negative); Urobilinogen Urine Negative (Negative); pH Urine 6.5 (4.5-7.5)
--- NOTE | 2024-09-08 07:20 | Electrocardiogram Report ---
Test Reason : Blood Pressure : */* mmHG Vent. Rate : 77 BPM Atrial Rate : 77 BPM P-R Int : 180 ms QRS Dur : 92 ms QT Int : 388 ms P-R-T Axes : 19 18 162 degrees QTcB Int : 439 ms Normal sinus rhythm Abnormal ECG When compared with ECG of 19-Aug-2024 17:16, Premature supraventricular complexes are no longer Present Confirmed by Len Calderón ([id number]) on 09/08/2024 7:20:30 AM Referred By: REFERRED SELF Confirmed By: Len Calderón
--- NOTE | 2024-09-08 08:27 | Pulmonary Consultation ---
Date of Consultation September 08, 2024 Assessment & Plan (1) Post pericardiotomy syndrome: (2) Pleural effusion on left: Plan Impression: 69-year-old male status post recent CABG at [facility] with recurrent left-sided pleural effusion. Prior thoracentesis demonstrated lymph ocytic exudate likely consistent with postpericardiotomy syndrome. The effusion has reaccumulated which is not necessarily unexpected. He is on aspirin and Plavix. He understands the slight increased risk of bleeding associated with performing any procedures on Plavix and again is requesting to proceed with the procedure. Recommendations: 1. Pleural effusion: Patient will undergo repeat therapeutic thoracentesis on the left. Will resend fluid although again suspect this is postpericardiotomy syndrome. No indication for indwelling pleural catheter drainage for this diagnosis. Typically these resolve over time but may require 2-3 thoracenteses. In some cases can consider nonsteroidal anti-inflammatories which I would be reluctant to do given the fact he is already on aspirin and Plavix. Prednisone may also be considered however this would need to be in conjunction with his cardiothoracic surgeon in [place]. Will check chest x-ray post procedure and if it is unremarkable, he requires no additional inpatient pulmonary evaluation and may be able to be dismissed from a pulmonary perspective from the hospital. Pulmonary will sign off post procedure. He can follow-up in the outpatient clinic with Dr. Whitley if needed. History of Present Illness Attending Physician: Ros Yates MD History of Present Illness Asked by hospitalist to assist in management this patient with pleural effusion post coronary artery bypass grafting. The patient underwent thoracentesis about 2 weeks ago. He was presumptive secondary to postpericardiotomy syndrome. He presented to the emergency room today with increasing shortness of breath. Chest x-ray demonstrated reaccumulation of the fluid. He is on Plavix and aspirin. He denies fevers chills night sweats or other constitutional symptoms. No trauma. He is requesting repeat thoracentesis. Allergies Allergy/AdvReac Type Severity Reaction Status Date / Time levofloxacin [From Levaquin] Allergy Severe Anaphylaxis Unverified 09/03/24 14:57 Penicillins Allergy Unknown Unknown Unverified 09/03/24 14:57 Sulfa (Sulfonamide Allergy Unknown Unknown Unverified 09/03/24 14:57 Antibiotics) [id number] Reductase AdvReac Verified 09/03/24 14:57 Inhibitor Home Medications Medication Instructions Recorded Confirmed Type clotrimazole-betamethasone 1 1 applic topical BID 07/03/24 09/08/24 History %-0.05 % topical cream tamsulosin 0.4 mg capsule 0.4 mg PO QAM 07/03/24 09/08/24 History aspirin 81 mg tablet,delayed 81 mg PO QAM #1 tab 07/05/24 09/08/24 Rx release pantoprazole 40 mg tablet,delayed 40 mg PO DAILY 08/20/24 09/08/24 History release (Protonix) pioglitazone 45 mg tablet 45 mg PO DAILY 08/20/24 09/08/24 History clopidogrel 75 mg tablet 75 mg PO QAM #90 tabs 09/03/24 09/08/24 Rx ezetimibe 10 mg tablet 10 mg PO DAILY #90 tabs 09/03/24 09/08/24 Rx furosemide 40 mg tablet (Lasix) 40 mg PO QAM #90 tabs 09/03/24 09/08/24 Rx metoprolol tartrate 50 mg tablet 50 mg PO BID #180 tabs 09/03/24 09/08/24 Rx potassium chloride 10 mEq 10 meq PO DAILY #90 caps 09/03/24 09/08/24 Rx capsule,extended release cephalexin 500 mg capsule 500 mg PO BID 09/08/24 09/08/24 History Patient History Medical History (Updated 09/08/24 @ 08:25 by Orlin Barrios MD) Aortic stenosis, moderate BPH (benign prostatic hyperplasia) Diabetes Social History Smoking Status: Never smoker Tobacco Type: Cigarettes Second Hand Exposure: No; Do You Dip or Chew Tobacco: No; Hx Alcohol Use: No Hx Substance Use: No Preferred Language: Yakut Communication Ability: Effective Merchandise Director Required: No Beliefs That Will Affect Care: None Current Living Situation: Spouse and Family Feels Safe at Home: Yes Safety Concerns: Feels Safe At This Time Assistive Devices: Denture - Lower and Glasses Review of Systems Review of Systems: Please refer to admission H&P. No additions or deletions Physical Exam Physical Exam: The patient is awake, alert and oriented 3, normocephalic and atraumatic, in no acute distress. Non-toxic appearing. HEENT- EOMI, mucous membranes moist. Hearing grossly intact. Heart-normal S1 and S2. No murmurs, rubs or gallops. Lungs-decreased bilaterally, no respiratory distress, no accessory muscle use. Abdomen-normal bowel sounds and soft. No ascites noted. Non-tender. Extremities- no clubbing, cyanosis, or edema. Rheumatologic-normal range of motion. Psychiatric-normal affect. Results & Data Results & Data Vital Signs (Past 12 Hours) Vital Signs Temp Pulse Pulse Resp BP BP Pulse Ox 09/08/24 07:25 73 09/08/24 06:00 09/08/24 06:00 74 18 128/74 97 09/08/24 06:00 09/08/24 03:17 65 09/08/24 03:16 76 18 95 09/08/24 03:16 68 18 95 09/08/24 03:16 95 09/08/24 02:01 36.5 C 75 20 163/80 H 96 Pulse Ox O2 Del Method O2 Del Method 09/08/24 07:25 09/08/24 06:00 Room Air 09/08/24 06:00 Room Air 09/08/24 06:00 97 Room Air 09/08/24 03:17 09/08/24 03:16 Room Air 09/08/24 03:16 Room Air 09/08/24 03:16 Room Air 09/08/24 02:01 Room Air Critical Care Results & Data Vital Signs (Past 12 Hours) Vital Signs Temp Pulse Pulse Resp BP BP Pulse Ox 09/08/24 07:25 73 09/08/24 06:00 09/08/24 06:00 74 18 128/74 97 09/08/24 06:00 09/08/24 03:17 65 09/08/24 03:16 76 18 95 09/08/24 03:16 68 18 95 09/08/24 03:16 95 09/08/24 02:01 36.5 C 75 20 163/80 H 96 Pulse Ox O2 Del Method O2 Del Method 09/08/24 07:25 09/08/24 06:00 Room Air 09/08/24 06:00 Room Air 09/08/24 06:00 97 Room Air 09/08/24 03:17 09/08/24 03:16 Room Air 09/08/24 03:16 Room Air 09/08/24 03:16 Room Air 09/08/24 02:01 Room Air Lab & Micro Results (Past 24 Hours) RBC 5.29 M/uL (4.70-6.10) 09/08/24 WBC 6.67 K/ul (4.8-10.8) 09/08/24 Hgb 14.3 g/dl (14.0-18.0) 09/08/24 Hct 44.6 % (42.0-52.0) 09/08/24 MCV 84.3 fL (80.0-100.0) 09/08/24 MCH 27.0 pg (25.0-34.0) 09/08/24 MCHC 32.1 g/dL (32.0-36.0) 09/08/24 RDW Standard Deviation 44.8 fL (36.4-46.3) 09/08/24 RDW Coefficient of Variation 14.6 % (11.5-14.5) H 09/08/24 Plt Count 370 K/uL (130-400) 09/08/24 MPV 8.5 fL (9.4-12.4) L 09/08/24 Neutrophils (%) (Auto) 67.1 % 09/08/24 Lymphocytes (%) (Auto) 24.7 % 09/08/24 Monocytes # (Auto) 0.46 K/uL (0.11-0.59) 09/08/24 Eosinophils # (Auto) 0.04 K/uL (0.00-0.50) 09/08/24 Immature Granulocyte % (Auto) 0.3 % 09/08/24 Neutrophils # (Auto) 4.47 K/uL (1.40-6.50) 09/08/24 Lymphocytes # (Auto) 1.65 K/uL (1.20-3.40) 09/08/24 Monocytes # (Auto) 0.46 K/uL (0.11-0.59) 09/08/24 Eosinophils # (Auto) 0.04 K/uL (0.00-0.50) 09/08/24 Basophils # (Auto) 0.03 K/uL (0.00-0.20) 09/08/24 Immature Granulocyte # (Auto) 0.02 K/uL (0.01-0.20) 5 Na 132 mmol/L (136-145) L 09/08/24 K 3.9 mmol/L (3.5-5.1) 09/08/24 Cl 89 mmol/L (98-107) L 09/08/24 CO2 35 mmol/L (21-32) H 09/08/24 Anion Gap 8 (3-11) 09/08/24 BUN 24 mg/dl (6-23) H 09/08/24 Creatinine 1.05 mg/dl (0.6-1.4) 09/08/24 BUN/Creatinine Ratio 22.9 (10-20) H 09/08/24 Glu 147 mg/dl (70-99(Fasting)) H 09/08/24 Ca 9.4 mg/dl (8.6-10.3) 09/08/24 Total Bilirubin 0.8 mg/dl (0.2-1.0) 09/08/24 AST 21 U/L (13-39) 09/08/24 ALT 9 U/L (7-52) 09/08/24 Alkaline Phosphatase 70 U/L (34-104) 09/08/24 TP 7.2 gm/dl (6.0-8.3) 09/08/24 Albumin 3.5 gm/dl (3.4-5.0) 09/08/24 Globulin 3.7 gm/dl (2.5-4.0) 09/08/24 Albumin/Globulin Ratio 0.9 (0.9-2) 09/08/24 Mg 1.6 mg/dl (1.7-2.4) L 09/08/24 04:26 Calcium Level 9.4 mg/dl (8.6-10.3) 09/08/24 02:09 Prothromb Time International Ratio 1.0 (0.9-1.1) 09/08/24 02:0 9 Diagnostic Findings (Past 24 Hours) Chest X-Ray 09/08/24 02:05 EXAM: XR chest 1V portable CLINICAL HISTORY: Chest pain, nonspecific TECHNIQUE: An X-ray image of the chest is obtained in AP projection. COMPARISON: 08/20/2024. FINDINGS: Pulmonary Parenchyma: Progression of the left pleural effusion seen silhouetting cardiac shadow. subsegmental collapse of the left lower and middle lung zones with atelectatic changes of the left upper lung zone. Clear right lung. No evidence of right pleural effusion or pleural thickening. Heart and Mediastinum: The cardiac size cannot be assessed. Prominent right hilar vascular markings; could be related to congestion. No mediastinal widening or masses. No hilar or mediastinal lymphadenopathy. Bony Thorax: Sternotomy wires are seen. IMPRESSION: 1. Progression of the left pleural effusion being moderate in today's study seen silhouetting cardiac shadow. subsegmental collapse of the left lower and middle lung zones with atelectatic changes of the left upper lung zone. 2. Prominent right hilar vascular markings; could be related to congestion. 3. Unchanged rest of the study. Electronically signed by Tyler Briceno 09-08-2024 04:22 AM RT Ventilator Mngmt (Last Documented) Ventilator Ordered Settings Respiratory Rate 18 09/08/24 06:00 Ventilator - PT Measurements Respiratory Rate 18 PG Care Time/CCT Total # of Minutes Spent Total Time Spent with Patient: Total time spent is greater than 50% in coordination of care (as documented) at patient's floor/unit and/or counseling patient: Coding Level of Care Code 88181 INT INP/OBS CARE 2/55MIN Diagnoses Post pericardiotomy syndrome I97.0 Pleural effusion on left J90
--- NOTE | 2024-09-08 08:29 | Procedure Note ---
Procedure Note Date of Service September 08, 2024 Procedure: Diagnostic therapeutic ultrasound-guided catheter thoracentesis, left Ambulance Driver: Dr. Orlin Barrios Indication: Pleural effusion Consent: Signed by patient and verified with timeout prior to procedure Anesthesia: 8 mL's 1% lidocaine without epinephrine local. Procedure: Consent was verified and timeout performed. Appropriate imaging studies were reviewed prior to the procedure. Patient was placed in a seated position and limited thoracic ultrasound was performed of the left chest. A moderate to large size pleural effusion on the left was noted. Site appropriate for thoracentesis was selected. The skin was prepped and draped in normal sterile fashion. Lidocaine was used for local analgesia. Fluid was aspirated via the finder needle. A small skin adeel was made with the scalpel and the catheter over the needle apparatus was advanced over the rib into the pleural space. Using the syringe one-way valve system, a total of 1500 mL's of clear yellow fluid was removed. Procedure was terminated due to patient experiencing some chest pain. The catheter was removed and observed to be intact. A sterile dressing was applied. Post procedure chest x-ray was ordered. Follow-up ultrasound demonstrated lung sliding with some residual pleural fluid noted Fluid was sent for cell count differential, Gram stain and culture, LDH, glucose, total protein, triglycerides, cholesterol. The patient tolerated the procedure well without obvious complication [facility] [place] Procedure Codes (Charges) Pulmonary/Thoracic Procedure 1: Pulmonary and Thoracic: 16557 Thoracentesis w imaging Coding CPT Codes Pulmonary/Thoracic - Pulmonary and Thoracic: 47077 Thoracentesis w imaging ([id number]) Additional Codes Date of Service (PG.SURGERY)
[2024-09-08] MEDS: TAMSULOSIN HCL 0.4 MG CAP PO SCH (08:49)
[2024-09-08] MEDS: EZETIMIBE 10 MG TAB PO SCH (08:49)
[2024-09-08] MEDS: METOPROLOL TARTRATE 50 MG TAB PO SCH (08:50)
[2024-09-08] MEDS: PANTOprazole 40 MG TAB PO SCH (08:50)
[2024-09-08] MEDS: POTASSIUM CHLORIDE 10 MEQ TABCR PO SCH (08:50)
[2024-09-08 08:53] LABS: Appearance Pleural Fluid Clear; Color Pleural Fluid Yellow; RBC Pleural Fluid Auto < 2000 /uL; Source Pleural Fluid Left Lung; WBC Pleural Fluid Auto 408 /uL
[2024-09-08 09:00] LABS: Total Protein Pleural Fluid 4.1 gm/dl
--- NOTE | 2024-09-08 09:07 | XRay Report ---
XR chest 1V portable CLINICAL HISTORY: post thora COMPARISON STUDY: Chest CT August 19, 2024. Chest radiograph September 08, 2024 at 2:53 AM. FINDINGS: There is no pneumothorax following left thoracentesis. Left pleural effusion has significan tly decreased in size. Small residual left pleural effusion with left basilar opacity suggestive of a telectasis. There are median sternotomy wires and mediastinal surgical clips. No evidence for pulmona ry edema. IMPRESSION: No pneumothorax following left thoracentesis. ACT 112: Negative or not required by law. Electronically signed by: Isaías Anthony M.D. 09/08/2024 9:05 AM
[2024-09-08 09:49] LABS: Eosinophils, Fluid 1 %; Lymphocytes, Fluid 63 %; Mono,Macrophage,Mesothelial 35 %; Neutrophils, Fluid 1 %
[2024-09-08] MEDS: INSULIN ASPART PER UNIT CHARGE SC SCH (10:00)
[2024-09-08] MEDS: ASPIRIN 81 MG ECTAB PO SCH (12:23)
[2024-09-08] MEDS: FUROSEMIDE 40 MG TAB PO SCH (12:23)
--- NOTE | 2024-09-08 13:11 | XCELERA ---
[id number] \\[id number]}___[id number].pdf
[2024-09-08 16:51] VITALS: BP 118/65; RESP 18; TEMP 97.9; O2SAT 97
--- NOTE | 2024-09-08 16:56 | Discharge Summary ---
Discharge Summary Date of Service September 08, 2024 Principal Dx & Hospital Course #1 = Principal Diagnosis (1) Pleural effusion on left: (2) Elevated troponin: (3) UTI (urinary tract infection): (4) Hyponatremia: Plan Patient is a 69-year-old male with a past medical history of type II DM, hyperlipidemia, and hypertension. Patient was transferred to [place] for a CABG 07/09/2024. 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 He was discharged on Lasix 40 Mg daily which he has been compliant with. Patient returns with difficulty taking deep breaths x 1 day. CXR in ED showed progression of left pleural effusion. #Tanja syndrome/left pleural effusion/history of CABG-had thoracentesis after admission with removal of 1500mL fluid. PULM thinks this could require drainage 1-2 more times and should have close f/u with PULM and Cardiology as outpt Not hypoxic, feeling much improved after drainage. Ok to continue home Plavix and ASA given recent CABG, monitor for evidence of bleeding after discharge Continue lasix on discharge check CXR in 1-2 weeks #Elevated troponin-Trop 610 then decreased after admission-likely from demand ischemia from large pleural effusion, recent CABG EKG without ischemic changes, no chest pain patient denies chest pain or dyspnea #UTI-treated as outpt with Macrobid and then switched to keflex and already had resolution of symptoms prior to this admission. No urine cx to follow but clinically improved. Received one dose cefepime while here and no need to continue. Finish out course of keflex as outpt and f/u w/ PCP #hyponatremia/hypomagnesemia -Sodium 132, mg 1.6-Likely 2/2 diuretic use- asymptomatic replaced mag. follow BMP as outpt ok to resume lasix to keeo pleural effusion from returning #oral irritation Left upper oral irritation at site of appliance -start dental paste with triamcinolone acetonide #type II DM pioglitazone Likely contributing to edema; will discontinue and recommend f/u with PCP. Pt adamantly against starting any injectables Consider Januvia/Tradjenta vs Rybelsus #HLDcontinue statin and Zetia #GERDcontinue PPI #HTNcontinue metoprolol VTE ppx: scds, defer chemical ppx due to thoracentesis Dispo: dc to home Notes For Next Care Provider Needs f/u CXR and PULM f/u in 1-2 weeks Medication Changes From Visit none Admission HPI Per Admitting Provider Patient is a 69-year-old male with a past medical history of type II DM, hyperlipidemia, and hypertension. Patient was transferred to [place] for a CABG 07/09/2024. 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 He was discharged on Lasix 40 Mg daily which he has been compliant with. Patient returns with difficulty taking deep breaths x 1 day. CXR in ED showed progression of left pleural effusion. Patient will likely need repeat thoracentesis may be considered for Pleurx. He is being admitted by medicine team with pulmonology consult, possible need for IR consult. Patient seen at bedside with his present. He stated since yesterday he has had difficulty with deep breaths but denies dyspnea. He also has a mild chronic cough. He was doing well after thoracentesis and is frustrated that the effusion has returned. He has been compliant on his Lasix and stated he may have missed 1 day in the past 2 weeks. He just had appointments with pulmonology and cardiology this week. He stated he is also undergoing treatment for UTI with Keflex after failing Macrobid treatment. He has approximately 4 to 5 days left of the Keflex. He stated he has dysuria and increasing urinary frequency which are improving on the Keflex. Patient is at risk for hospital-acquired/catheter associated UTI with recent hospitalizations and procedure, will transition to IV antibiotic coverage. Patient has been compliant on Plavix and baby aspirin which will be held in anticipation of thoracentesis. Regarding his elevated troponin, patient denies any chest pain. Patient denies fever, chills, headache, dizziness, lightheadedness, abdominal pain, nausea, vomiting, diarrhea. He has chronic lower extremity edema that is improving with BARBER stockings. He does not use nicotine products, was a former smoker for 15 years but quit in 1989. He does not drink alcohol. He is not on oxygen at baseline, no CPAP/BiPAP. He took his home medications this evening. He wishes to be full code. Discharge Exam Constitutional WD/WN, vitals as above Respiratory normal respiratory effort diminished at left base, otherwise clear, no wcr Cardiovascular RRR, no murmur, no edema Psychiatric A+Ox3, euthymic affect Discharge Plan Discharge Items Patient Disposition: Home - Self-Care Reason For Visit: PLEURAL EFFUSION, DRESSLERS SYNDROME Discharge Diagnosis: Pleural effusion Condition on Discharge: Good Activity: Resume your previous activity Non-emergency contact: Primary Care Provider, Insurance Specialist and In Flight Refueling Manager Call non-emergency contact if: you have any medication questions and your symptoms worsen Follow-up/Referrals: Orlin Barrios MD [Physician] - (Follow-up in 1 to 2 weeks-call for an appointment) Zach Pollock MD [Primary Care Provider] - (Follow-up within 1 week) Diet: Carb Consistent or DM2 and Low Sodium (2gm) Addtl Attending Provider Instructions: You were admitted with a pleural effusion which was drained. Please continue on the same dose of Lasix and follow-up with the cleaner carpet and upholstery in 1 to 2 weeks to see if you need a repeat thoracentesis which can be performed in the office at that time. Continue on your Keflex as before for your urinary tract infection and follow-up with your primary care physician within 1 week after discharge. You should remain off of your pioglitazone for diabetes and continue to follow a low carbohydrate diet. Please discuss with your primary care physician about starting a different oral diabetes medication such as Jardiance, Farxiga, Januv ia, Tradjenta, or Rybelsus. Pending Studies at Discharge: Yes (Urine culture) Stand-Alone Forms: My [facility], Smoking Cessation Medications and DC Order Prescriptions: New triamcinolone acetonide 0.1 % paste 1 applic dental TID PRN (Reason: mouth irritation) Qty: 5 0RF Rx Instructions: use after food and/or drink and/or oral hygiene Continued clopidogrel 75 mg tablet 75 mg PO QAM Qty: 90 3RF ezetimibe 10 mg tablet 10 mg PO DAILY Qty: 90 3RF furosemide [Lasix] 40 mg tablet 40 mg PO QAM Qty: 90 3RF metoprolol tartrate 50 mg tablet 50 mg PO BID Qty: 180 3RF potassium chloride 10 mEq capsule, extended release 10 meq PO DAILY Qty: 90 3RF tamsulosin 0.4 mg capsule 0.4 mg PO QAM clotrimazole-betamethasone 1-0.05 % cream 1 applic TOPICAL BID aspirin 81 mg Tablet,Delayed Release (Dr/Ec) 81 mg PO QAM Qty: 1 0RF pantoprazole [Protonix] 40 mg Tablet,Delayed Release (Dr/Ec) 40 mg PO DAILY cephalexin 500 mg capsule 500 mg PO BID Discontinued pioglitazone 45 mg tablet 45 mg PO DAILY Discharge Orders: Discharge Order (Routine); Ordered 09/08/24 Ordered By: Ros Yates Admission Data Admit Date/Time: 09/08/24 04:30 Attending Provider: Ros Yates Admit Provider: Donnie Garcia Primary Care Provider: Zach Pollock Other Providers: Orlin Barrios Other Interventions: Discharge Summary Assessment (RN) Last Done: 09/08/24 17:03 Hospital Stay Data Consultations 09/08/24 03:34 ED Decision to Admit Stat 09/08/24 05:13 Consult Pulmonology Routine Pending Results Patient Have Any Pending Studies at Discharge: Yes (Urine culture) Discharge Instructions Given to Patient (Per Discharging Provider) You were admitted with a pleural effusion which was drained. Please continue on the same dose of Lasix and follow-up with the cleaner carpet and upholstery in 1 to 2 weeks to see if you need a repeat thoracentesis which can be performed in the office at that time. Continue on your Keflex as before for your urinary tract infection and follow-up with your primary care physician within 1 week after discharge. You should remain off of your pioglitazone for diabetes and continue to follow a low carbohydrate diet. Please discuss with your primary care physician about starting a different oral diabetes medication such as Jardiance, Farxiga, Januvia, Tradjenta, or Rybelsus. Total Time Total Time Spent Total Time Spent (In Minutes): 35 min Total Time Includes: Examination of the Patient, Discharge Planning, Medication Reconciliation and Communication With Other Providers Coding Level of Care Code 78930 INP/OBS DISCH >30 MIN Diagnoses Pleural effusion on left J90 Elevated troponin R79.89 UTI (urinary tract infection) N39.0 Hyponatremia E87.1
[2024-09-08 17:14] VITALS: PULSE 68
[2024-09-09] MEDS ORDERED: CLOPIDOGREL BISULFATE 75 MG TAB PO SCH (09:00)
[2024-09-12 22:57] LABS: Pleural Fluid, Cholesterol 70 mg/dL; Pleural Fluid, Triglycerides 39 mg/dL
== END 2024-09-08 17:44 | disposition home or self-care (01) | DRG 315 ==
LOC: SUATTDRO → ED 01:57 → SUATTDRO 04:30 → EDINP 04:30 → INTOOBSV 04:30 → 2S 05:13
DX: J90 Pleural effusion, not elsewhere classified; I24.89 Other forms of acute ischemic heart disease; Z95.1 Presence of aortocoronary bypass graft; I10 Essential (primary) hypertension; K21.9 Gastro-esophageal reflux disease without esophagitis; Z88.8 Allergy status to other drugs, medicaments and biological substances; Z79.84 Long term (current) use of oral hypoglycemic drugs; Z79.02 Long term (current) use of antithrombotics/antiplatelets; I97.0 Postcardiotomy syndrome; Z88.2 Allergy status to sulfonamides; N39.0 Urinary tract infection, site not specified; Z88.0 Allergy status to penicillin; K08.89 Other specified disorders of teeth and supporting structures; Z87.891 Personal history of nicotine dependence; I25.2 Old myocardial infarction; I35.0 Nonrheumatic aortic (valve) stenosis; E11.9 Type 2 diabetes mellitus without complications; Z79.899 Other long term (current) drug therapy; Z79.82 Long term (current) use of aspirin; E87.1 Hypo-osmolality and hyponatremia; Z88.1 Allergy status to other antibiotic agents; E83.42 Hypomagnesemia; I25.10 Atherosclerotic heart disease of native coronary artery without angina pectoris; E78.5 Hyperlipidemia, unspecified